=== PATIENT | male | born 1960 | race Caucasian/White ===

== ENCOUNTER 2018-03-09 19:02 | Inpatient (IN) | payer OTHER ==
[~2018-03-09] VITALS: Ht 172.7 cm; Wt 142.2 kg
[2018-03-09 22:10] VITALS: BP 164/93; PULSE 98; RESP 19; TEMP 98.1; O2SAT 95
[2018-03-09] MEDS ORDERED: PERC10TA27 PO (23:06)
[2018-03-09] MEDS ORDERED: LEVO1INJ IV (23:17)
[2018-03-09] MEDS ORDERED: IPRASOL INH (23:20)
[2018-03-09] MEDS ORDERED: CHLO25TA2 PO (23:23)
[2018-03-09] MEDS ORDERED: ENOX40IN SQ (23:24)
[2018-03-09] MEDS ORDERED: FURO1TAB62 PO (23:25)
--- NOTE | 2018-03-09 23:28 | HHI.HP ---
[facility] Dr. Weber. Non-Staff Admission Diagnosis Bilateral scattered pulmonary nodular densities of uncertain etiology . Diagnoses: (1) Pulmonary nodules/lesions, multiple Chief Complaint: SOB, hemoptysis Travel History International Travel<30 Days: No Contact w/Intl Traveler <30 Da: No History of Present Illness The patient was admitted to [facility] in [place] after a 2 week period of cough with hemoptysis after being referred by his primary care physician following an abnormal office chest x-ray. The patient presented to the emergency room on 03/01/2018. He was found to have extensive multilobular nodular scattered densities with surrounding edema on CT of chest with contrast. These were thought to represent areas of pneumonia versus metastatic deposits versus early abscesses. He had an extensive workup including Gram stain and cultures, upper respiratory bacterial and viral panel by PCR, Streptococcus pneumonia, and Legionella pneumonia urine antigen, mycoplasma pneumonia and others with no remarkable testing outcomes (per Dr. Sweet consult note dated 03/06 - I could not find the results included with records sent with patient). He had a nostril culture for MRSA that did come back positive. The patient was deemed to be high risk for bronchoscopy due to his significant morbid obesity with a BMI of 50 and he declined intubation if required. He was accepted in transfer by Dr. Nunes at [facility] for possible open lung biopsy. The patient reports two weeks of hemoptysis with sob with exertion that started two weeks before he presented to [facility] on 03/01. He denies any improvement in symptoms despite the treatments he received at [facility]. He expresses great frustration with his lack of improvement. He reports severe 7/10 chronic back pain that will only be relieved with Percocet 10/325 mg x 2 tabs (takes this at home and at [facility]). Review of Systems Except as stated in HPI: all other systems reviewed are Neg Past Family Social History Past Medical History Aortic aneurysm post repair Degenerative joint disease Incomplete right bundle branch block Benign prostatic hypertrophy Morbid obesity with BMI estimated at 50 Chronic tobacco abuse Nephrolithiasis Obstructive sleep apnea-refuses CPAP . Past Surgical History Abdominal aortic aneurysm repair [place] [address] Haney Lumbar spine surgery Tonsillectomy Septoplasty Bilateral knee surgeries Left breast mass excision . Reported Medications . Reported Meds & Active Scripts Active Reported Terazosin (Terazosin HCl) 5 Mg Cap 5 Mg PO HS Nicotine Transdermal Syst (Nicotine) 21 Mg/24 Hour Dis TD DAILY Solu-Medrol Inj (Methylprednisolone Sodium Succinate) 40 Mg/Ml Inj 40 Mg IV PUSH Q8HR Lisinopril 20 Mg Tab 20 Mg PO BID Humalog (Insulin Lispro) 100 Unit/Ml Cartridge SQ ACHS SLIDING SCALE Levemir Inj (Insulin Detemir) 1,000 unit/ 10 ML Vial 10 Units SQ HS Do not mix with any other Insulin. Vancomycin in Dextrose Inj 1 Gm/200 Ml Inj 1,000 Mg IV Q8HR Hydralazine HCl 25 Mg Tablet 25 Mg PO Q6HR PRN Heparin Lock Flush For Flush (Heparin Sodium (Porcine) Lock Flush) 500 Unit/5 Ml (100 Unit/Ml) Inj 5 Ml IV Lasix (Furosemide) 20 Mg Tab 20 Mg PO DAILY Enoxaparin Inj (Enoxaparin Sodium) 40 Mg/0.4 Ml Syr 40 Mg SQ DAILY Chlorthalidone 25 Mg Tab 25 Mg PO DAILY Duoneb (Ipratropium-Albuterol Neb) 0.5-2.5 Mg/3 Ml Neb 1 Nebule INH Q4HR PRN Levofloxacin in 5% Dextro 750 mg/150Ml (Levofloxacin in D5w) 750 Mg/150 Ml Inj IV DAILY Percocet (Oxycodone-Acetaminophen) 10-325 mg Tab 1 Tab PO Q6H PRN Allergies: Coded Allergies: adhesive (Verified Allergy, Mild, 03/10/18) blisters Family History Mother due to cancer and acute myocardial infarction 3 Father , medical history is unknown . Social History Tobacco: 2 packs per day 50 years Alcohol: Quit drinking heavily 10 years ago - drinks occasionally during socialization Illicit Drugs: denies . Physical Exam Vital Signs Vital Signs Date Time Temp Pulse Resp B/P (MAP) Pulse Ox O2 Delivery O2 Flow Rate FiO2 03/09/18 22:10 98.1 98 19 164/93 (116) 95 Physical Exam CONSTITUTIONAL: This is a morbidly obese male patient, in no apparent distress. INTEGUMENTARY: No rashes. Cool and dry. HEAD: Atraumatic. Normocephalic. EYES: No scleral icterus. No injection or drainage. ENT: Nose without bleeding, purulent drainage. NECK: Trachea midline. No JVD. CARDIOVASCULAR: Regular rate and rhythm without murmurs, gallops, or rubs. RESPIRATORY: Bilateral diffuse coarse rhonchi with a few scattered rales. SOB noted with minimal exertion. GASTROINTESTINAL: Abdomen soft, non-tender, nondistended. No guarding. MUSCULOSKELETAL: Extremities without clubbing, cyanosis, or edema. No calf tenderness. NEUROLOGICAL: Awake and alert. Motor and sensory grossly within normal limits. Normal speech. . Caprini VTE Risk Assessment Caprini VTE Risk Assessment: Mod/High Risk (score >= 2) Caprini Risk Assessment Model Point Value = 1 Point Value = 2 Point Value = 3 Point Value = 5 Age 41-60 Minor surgery BMI > 25 kg/m2 Swollen legs Varicose veins or History of unexplained or recurrent spontaneous Oral contraceptives or hormone replacement Sepsis (< 1 month) Serious lung disease, including pneumonia (< 1 month) Abnormal pulmonary function Acute myocardial infarction Congestive heart failure (< 1 month) History of inflammatory bowel disease Medical patient at bed rest Age 61-74 Arthroscopic surgery Major open surgery (> 45 min) Laparoscopic surgery (> 45 min) Malignancy Confined to bed (> 72 hours) Immobilizing plaster cast Central venous access Age >= 75 History of VTE Family history of VTE Factor V Leiden Prothrombin [id number] Lupus anticoagulant Anticardiolipin antibodies Elevated serum homocysteine Heparin-induced thrombocytopenia Other congenital or acquired thrombophilia Stroke (< 1 month) Elective arthroplasty Hip, pelvis, or leg fracture Acute spinal cord injury (< 1 month) Prophylaxis Regimen Total Risk Factor Score Risk Level Prophylaxis Regimen 0-1 Low Early ambulation 2 Moderate Order ONE of the following: *Sequential Compression Device (SCD) *Heparin 5000 units SQ BID 3-4 Higher Order ONE of the following medications: *Heparin 5000 units SQ TID *Enoxaparin/Lovenox 40 mg SQ daily (WT < 150 kg, CrCl > 30 mL/min) *Enoxaparin/Lovenox 30 mg SQ daily (WT < 150 kg, CrCl > 10-29 mL/min) *Enoxaparin/Lovenox 30 mg SQ BID (WT < 150 kg, CrCl > 30 mL/min) AND/OR *Sequential Compression Device (SCD) 5 or more Highest Order ONE of the following medications: *Heparin 5000 units SQ TID (Preferred with Epidurals) *Enoxaparin/Lovenox 40 mg SQ daily (WT < 150 kg, CrCl > 30 mL/min) *Enoxaparin/Lovenox 30 mg SQ daily (WT < 150 kg, CrCl > 10-29 mL/min) *Enoxaparin/Lovenox 30 mg SQ BID (WT < 150 kg, CrCl > 30 mL/min) AND *Sequential Compression Device (SCD) Assessment and Plan Problem List: (1) Pulmonary nodules/lesions, multiple ICD Code: R91.8 - Other nonspecific abnormal finding of lung field Assessment and Plan The patient was admitted to [facility] in [place] after a 2 week period of cough with hemoptysis after being referred by his primary care physician following an abnormal office chest x-ray. The patient presented to the emergency room on 03/01/2018. He was found to have extensive multilobular nodular scattered densities with surrounding edema on CT of chest with contrast. These were thought to represent areas of pneumonia versus metastatic deposits versus early abscesses. He had an extensive workup including Gram stain and cultures, upper respiratory bacterial and viral panel by PCR, Streptococcus pneumonia, and Legionella pneumonia urine antigen, mycoplasma pneumonia and others with no remarkable testing outcomes. He had a nostril culture for MRSA that did come back positive. The patient was deemed to be high risk for bronchoscopy due to his significant morbid obesity with a BMI of 50 and he declined intubation if required. CT guided right lung biopsy preliminarily negative per hospitalist progress note on 03/08. He was accepted in transfer by Dr. Nunes at [facility] for possible open lung biopsy. Extensive multilobular reticulonodular scattered densities with surrounding edema on CT of chest with contrast at [facility]. These were thought to represent areas of pneumonia versus metastatic deposits (preliminary right lung biopsy negative for malignancy) versus early abscesses - consult CTS for possible open lung biopsy - appreciate assistance - Consult pulmonology - appreciate assistance - continue antibiotics for pneumonia: IV vancomycin and levaquin - continue duonebs q4h prn sob/wheezing COPD exacerbation - supplemental oxygen as needed - duonebs - continue IV solumedrol Hypertension - Continue hydralazine as needed and routine lisinopril - monitor trends in bp and adjust treatments as indicated Benign prostatic hypertrophy - Continue terra Zosyn Chronic back pain - Continue as needed Percocet 10/325 mg 2 tabs every 6 hours as needed Steroid-induced hyperglycemia - Continue Levemir - Accu-Cheks before meals and at bedtime with low-dose NovoLog sliding scale coverage - Hypoglycemia protocol - Monitor trends and blood glucose readings and adjust treatments as indicated Peripheral edema -Continue Lasix and chlorthalidone as previously ordered -Monitor I&O Tobacco abuse -Counseled regarding cessation -Nicotine patch Morbid obesity - will need to work on weight loss DVT prophylaxis -Lovenox 40 mg IV subcu every 24 hours Discussed Condition With Dr. Stubbs and RN . Physician Certification 2 Midnight Certification Type: Admission for Inpatient Services Order for Inpatient Services The services are ordered in accordance with Medicare regulations or non- Medicare payer requirements, as applicable. In the case of services not specified as inpatient-only, they are appropriately provided as inpatient services in accordance with the 2-midnight benchmark. Estimated LOS (days): 3 days is the estimated time the patient will need to remain in the hospital, assuming treatment plan goals are met and no additional complications. Post-Hospital Plan: Other acute care hospital Grace Keen March 09, 2018 23:28
[2018-03-09] MEDS ORDERED: SENNOSIDES 8.6 MG TAB PO PRN (23:30)
[2018-03-09] MEDS ORDERED: ACETAMINOPHEN 325 MG TAB PO PRN (23:30)
[2018-03-09] MEDS ORDERED: ONDANSETRON HCL 4 MG/2 ML VIAL IVP PRN (23:30)
[2018-03-09] MEDS ORDERED: BISACODYL 10 MG SUPP RECTAL PRN (23:30)
[2018-03-09] MEDS ORDERED: MAGNESIUM HYDROXIDE SUSP 30 ML CUP PO PRN (23:30)
[2018-03-09] MEDS ORDERED: SODIUM CHLORIDE 0.9% FLUSH 10 ML FLUSH IV FLUSH PRN (23:30)
[2018-03-09] MEDS ORDERED: HYDR-3799 PO (23:59)
[2018-03-09] MEDS ORDERED: HEPA100I8 IV (23:59)
[2018-03-10] VITALS (7 sets, daily range): BP systolic 109–171; BP diastolic 57–96; PULSE 79–99; RESP 16–20; TEMP 97.2–98.1; O2SAT 91–96
[2018-03-10] MEDS ORDERED: VANC1INJ2 IV (00:01)
[2018-03-10] MEDS ORDERED: LEVEMIR SQ (00:02)
[2018-03-10] MEDS ORDERED: INSU100C SQ (00:05)
[2018-03-10] MEDS ORDERED: LISI-515 PO (00:06)
[2018-03-10] MEDS ORDERED: SOLU40IN IV PUSH (00:07)
[2018-03-10] MEDS ORDERED: NICO1DIS2 TD (00:09)
[2018-03-10] MEDS ORDERED: TERA5CAP3 PO (00:12)
[2018-03-10] MEDS ORDERED: hydrALAZINE HCL 25 MG TAB PO PRN (00:30)
[2018-03-10] MEDS ORDERED: VANCOMYCIN HCL 1000 MG VIAL IV SCH (00:30)
[2018-03-10] MEDS ORDERED: oxyCODONE/ACETAMINOPHEN 10 MG/325 MG TAB PO PRN (00:30)
[2018-03-10] MEDS ORDERED: Vancomycin Consult Pharmacy 1 EA OTHER SCH (00:30)
[2018-03-10] MEDS ORDERED: DEXTROSE 50% IN WATER 50 ML VIAL(D50) IV PUSH PRN (00:45)
[2018-03-10] MEDS ORDERED: SODIUM CHLORIDE 0.9% FLUSH 10 ML FLUSH IVF PRN ×2 (00:45)
[2018-03-10] MEDS ORDERED: PILL SPLITTER OTHER PRN (00:45)
[2018-03-10] MEDS ORDERED: GLUCAGON 1 MG/ML VIAL OTHER PRN (00:45)
[2018-03-10] MEDS ORDERED: RESP: ALBUTEROL 2.5 MG/IPRATROPIUM 0.5 MG NEB (PRN) NEB (00:45)
[2018-03-10] MEDS: TERAZOSIN HCL 5 MG CAP PO SCH ×2 (00:59→20:22)
[2018-03-10] MEDS: LISINOPRIL 20 MG TAB PO SCH ×3 (01:02→20:22)
[2018-03-10] MEDS: methylPREDNISolone SOD SUCC 40 MG/1 ML VIAL IV PUSH SCH ×3 (01:02→20:23)
[2018-03-10] MEDS ORDERED: PERC10TA27 PO (01:14)
[2018-03-10] MEDS: INSULIN DETEMIR 100 UNITS/ML VIAL SQ SCH ×2 (01:32→20:28)
[2018-03-10 01:36] LABS: WHITE BLOOD COUNT 24.8 TH/MM3 (4.0-11.0)
[2018-03-10 01:37] LABS: AUTOMATED NEUTROPHIL # 20.3 TH/MM3 (1.8-7.7); BASOPHIL # 0.1 TH/MM3 (0-0.2); BASOPHIL % 0.4 % (0.0-2.0); HEMATOCRIT 41.4 % (39.0-51.0); HEMOGLOBIN 13.6 GM/DL (13.0-17.0); LYMPH % 9.9 % (9.0-44.0); LYMPHOCYTE # 2.5 TH/MM3 (1.0-4.8); MEAN CELL VOLUME 88.1 FL (80.0-100.0); MEAN CORPUSCULAR HGB CONC 32.9 % (32.0-36.0); MEAN PLATELET VOLUME 7.9 FL (7.0-11.0); MONO % 7.6 % (0.0-8.0); MONOCYTE # 1.9 TH/MM3 (0-0.9); NEUT % 82.1 % (16.0-70.0); PLATELET COUNT 293 TH/MM3 (150-450); RED CELL DISTRIBUTION WIDTH 15.9 % (11.6-17.2)
[2018-03-10 01:49] LABS: ALKALINE PHOSPHATASE 114 U/L (45-117); ALT (GPT) 132 U/L (12-78); TOTAL BILIRUBIN ADULT 0.5 MG/DL (0.2-1.0); TOTAL PROTEIN 7.3 GM/DL (6.4-8.2)
[2018-03-10 01:50] LABS: ALBUMIN 3.3 GM/DL (3.4-5.0); AST (GOT) 59 U/L (15-37); BICARBONATE 37.1 MEQ/L (21.0-32.0); BLOOD UREA NITROGEN 33 MG/DL (7-18); CALCIUM 9.1 MG/DL (8.5-10.1); CHLORIDE 93 MEQ/L (98-107); CREATININE 1.05 MG/DL (0.60-1.30); GLOMERULAR FILTRATION RATE 72 ML/MIN (>89); GLUCOSE,RANDOM 133 MG/DL (74-106); SODIUM (NA) 136 MEQ/L (136-145)
[2018-03-10 02:06] LABS: STOMATOCYTES 1+ (NORMAL)
[2018-03-10] MEDS ORDERED: VANCOMYCIN 1,500 MG/NS 500 ML IV ONE ×2 (03:00)
[2018-03-10] MEDS: oxyCODONE/ACETAMINOPHEN 10 MG/325 MG TAB PO PRN ×3 (07:07→20:22)
[2018-03-10] MEDS: SODIUM CHLORIDE 0.9% FLUSH 10 ML FLUSH IV FLUSH SCH ×3 (09:00→20:23)
[2018-03-10] MEDS ORDERED: NON-FORMULARY DRUG (Chlorthalidone 25 MG) PO SCH (09:00)
[2018-03-10] MEDS: CHLORTHALIDONE 50 MG TAB PO SCH (09:30)
[2018-03-10] MEDS: FUROSEMIDE 20 MG TAB PO SCH (09:30)
[2018-03-10] MEDS: NICOTINE 21 MG/24 HR PATCH T-DERMAL SCH (09:30)
[2018-03-10] MEDS: SODIUM CHLORIDE 0.9% FLUSH 10 ML FLUSH IVF SCH (09:31)
[2018-03-10] MEDS: ENOXAPARIN SODIUM 40 MG/0.4 ML SYRINGE SQ SCH (09:31)
[2018-03-10] MEDS: LEVOFLOXACIN 750 MG PREMIX INJ 150 ML IV SCH (09:32)
[2018-03-10] MEDS: INSULIN ASPART SUPPLEMENTAL SCALE SQ SCH ×4 (09:47→20:28)
[2018-03-10] MEDS ORDERED: VANCOMYCIN 1,000 MG/NS 250 ML IV ONE ×2 (10:00)
[2018-03-10 13:56] LABS: PROTHROMBIN TIME - PATIENT 9.8 SEC (9.8-11.6)
--- NOTE | 2018-03-10 13:58 | RADRPT ---
EXAM DATE/TIME: 03/10/2018 13:00 [place] COMPARISON: No previous studies available for comparison. INDICATIONS : Evaluate for infiltrate. MEDICAL HISTORY : None. SURGICAL HISTORY : Picc line. ENCOUNTER: Initial ACUITY: 1 day PAIN SCORE: 0/10 LOCATION: Bilateral chest FINDINGS: PICC line in good position. Minimal bibasilar parenchymal changes, nonspecific. No pneumothorax. Th e heart and pulmonary vascularity are normal. CONCLUSION: Minimal bibasilar parenchymal changes. No pneumothorax.. Jorge Julio MD FACR on March 10, 2018 at 13:56 Board Certified Radiologist. This report was verified electronically.
[2018-03-10] MEDS ORDERED: CEFAZOLIN INJ 3,000 MG in SODIUM CHLORIDE 0.9% INJ 100 ML IV SCH (14:30)
[2018-03-10] MEDS ORDERED: CHLORHEXIDINE GLUCONATE 4% SOLN 120 ML BTL TOPICAL SCH (14:30)
[2018-03-10] MEDS ORDERED: CEFAZOLIN INJ 500 MG in SODIUM CHLORIDE 0.9% IRR BTL 500 ML IRRIGATION SCH (14:30)
[2018-03-10] MEDS ORDERED: SODIUM CHLORIDE 0.9% FLUSH 10 ML FLUSH IV FLUSH PRN (14:30)
--- NOTE | 2018-03-10 15:21 | MB ---
cc: Mirta Jimenez Jacqueline R ARNP DATE: 03/10/2018 DATE OF : 1960 HISTORY OF PRESENT ILLNESS: A 57-year-old male patient of Dr. John Weber, presented to [facility] on 03/01/2018 with hemoptysis for about [address] chest showed extensive multilobar nodularity with scattered densities, surrounding edema. The patient had extensive workup including a right lung biopsy for which the path report is not available. There was a note per Dr. Sweet that the patient had extensive workup also including Gram's stain, cultures, viral panel, Streptococcus pneumonia, Legionella urine antigen, mycoplasma, pneumonia, had no remarkable testing outcomes. The MRSA nasal swab did come back positive. He was deemed high risk for bronchoscopy due to his significant morbid obesity with a BMI of 50 and at that time declined intubation if required. He was accepted by Dr. Blair at [facility] for possible open lung biopsy. He apparently had not had any improvement in his symptoms since the treatment he received a [facility], extremely frustrated with the lack of improvement. PAST MEDICAL HISTORY: 1. Aortic aneurysm repair, which was done endoscopically. 2. Obstructive sleep apnea. The patient declined CPAP use. 3. Kidney stones. 4. Tobacco dependency 5. Morbid obesity. BMI here is 48.8, 6. Benign prostatic hypertrophy. 7. History of incomplete right bundle branch block. 8. Chronic knee pain, prior meniscus tear. 9. History of degenerative joint disease. PAST SURGICAL HISTORY: Endoscopic repair of abdominal aortic aneurysm in 2016, lumbar spine surgery, tonsillectomy, septoplasty, surgery for torn medial meniscus. He had a left breast mass excision, details unknown. ALLERGIES: ADHESIVE TAPE. MEDICATIONS: On transfer from [facility] include: 1. Levaquin. 2. Vancomycin. 3. DuoNebs. 4. Nicotine patch. 5. Lovenox. 6. Hydralazine p.r.n. 7. Terazosin. 8. Lisinopril. 9. Percocet for pain. 10. Lasix. 11. Chlorthalidone. 12. Solu-Medrol 13. Levemir. FAMILY HISTORY: Mother due to cancer, acute GA. Father , medical history unknown. SOCIAL HISTORY: The patient smokes 2 packs a day for over 50 years. Occasional alcohol, quit drinking heavily 10 years ago. with children. REVIEW OF SYSTEMS: As above in HPI, other 12 systems unremarkable. PHYSICAL EXAMINATION: VITAL SIGNS: This is a very obese male, BMI of 48.8. Blood pressure 110/60, heart rate of 96, afebrile. GENERAL: Awake, alert, in no acute distress. HEENT: Head is normocephalic, atraumatic. Pupils equal and reactive. Oral mucosa pink, moist. NECK: Supple. No JVD. HEART: Sounds S1, S2. Regular rate and rhythm. No audible rubs, murmurs, gallops. LUNGS: He has got some slight inspiratory, expiratory wheeze. No audible rhonchi noted. ABDOMEN: Obese, soft, nontender. No masses or organomegaly. EXTREMITIES: Trace edema noted. Good distal pulses. NEUROLOGIC: A and O x3. No focal deficits. LABORATORY DATA: Hemoglobin 13, hematocrit of 41. White cell count of 24, platelet count of 293. Sodium 136, potassium 4.7, BUN of 33, creatinine 1.05, AST 59, ALT 132. INR 1.0. Chest x-ray: Minimal bibasilar parenchymal changes. No pneumothorax. A CT chest was loaded into the [facility] [employer] [facility]. However, the report showed numerous scattered densities in both lungs, more marked on the right than the left. He also had a 2-D echocardiogram which showed an EF of 55%, mild tricuspid insufficiency, poor echo windows due to his large habitus. ASSESSMENT AND PLAN: This is a 57-year-old male that has had an extensive workup, nonconclusive, negative cultures to date per [facility], now requesting a lung biopsy. The patient will be scheduled for a video-assisted thoracoscopy with lower lobe lung biopsy on Tuesday. The patient will be n.p.o. after midnight, will hold his Lovenox the day of. He can receive his Tuesday dose. Type and screen. Chest x-ray is available. The films have been loaded into the [employer]. JACOB Collins MD JRT/MEENA , 02:31 PM , 03:19 PM
[2018-03-10] MEDS: RESP: ALBUTEROL 2.5 MG/IPRATROPIUM 0.5 MG NEB (SCH) NEB ×2 (15:24→19:05)
[2018-03-10 15:51] LABS: BILIRUBIN, URINE NEG (NEG); BLOOD, URINE SMALL (NEG); GLUCOSE,URINE NEG (NEG); KETONE, URINE NEG (NEG); NITRITE,URINE NEG (NEG); URINE COLOR YELLOW (YELLW/STRAW); URINE LEUKOCYTE ESTERASE NEG (NEG)
[2018-03-10 15:56] LABS: HYALINE CAST, URINE 6 /lpf (RARE); SQUAMOUS EPITHELIAL CELL URINE <1 /hpf (0-5)
--- NOTE | 2018-03-10 20:21 | HHI.PR ---
Subjective Remarks Patient sitting on the edge of the bed, nurse obtaining blood, no chest pain or short of breath, afebrile Objective Vitals Vital Signs Date Time Temp Pulse Resp B/P (MAP) Pulse Ox O2 Delivery O2 Flow Rate FiO2 03/10/18 16:00 97.4 86 18 128/84 (99) 96 03/10/18 15:24 92 Nasal Cannula 2.00 03/10/18 15:22 Nasal Cannula 2.00 03/10/18 13:30 Nasal Cannula 2.00 03/10/18 12:30 98.0 96 17 109/57 (74) 92 03/10/18 08:00 Room Air 03/10/18 08:00 97.2 79 17 155/90 (111) 94 03/10/18 00:00 98.1 99 20 171/96 (121) 94 03/09/18 22:10 98.1 98 19 164/93 (116) 95 I/O 03/09/18 03/09/18 03/09/18 03/10/18 03/10/18 03/10/18 07:00 15:00 23:00 07:00 15:00 23:00 Intake Total 400 ml Balance 400 ml Intake IV Total 400 ml Result Diagram: 03/10/18 0100 03/10/18 0100 Objective Remarks GENERAL: This is a well-nourished, morbidly obese, well-developed patient, in no apparent distress. CARDIOVASCULAR: RRR, no gallops, or rubs. RESPIRATORY: Mild diminished breath sounds bibasilar. No W, R, or R GASTROINTESTINAL: Abdomen soft, non-tender, nondistended. Positive bowel sounds MUSCULOSKELETAL: Extremities without clubbing, cyanosis, or edema. Pedal pulses appreciated NEUROLOGICAL: Awake and alert. Moves all extremity. Normal speech.no focal neurological deficit A/P Problem List: (1) Pulmonary nodules/lesions, multiple ICD Code: R91.8 - Other nonspecific abnormal finding of lung field Assessment and Plan The patient was admitted to [facility] in [place] after a 2 week period of cough with hemoptysis after being referred by his primary care physician following an abnormal office chest x-ray. The patient presented to the emergency room on 03/01/2018. He was found to have extensive multilobular nodular scattered densities with surrounding edema on CT of chest with contrast. These were thought to represent areas of pneumonia versus metastatic deposits versus early abscesses. He had an extensive workup including Gram stain and cultures, upper respiratory bacterial and viral panel by PCR, Streptococcus pneumonia, and Legionella pneumonia urine antigen, mycoplasma pneumonia and others with no remarkable testing outcomes. He had a nostril culture for MRSA that did come back positive. The patient was deemed to be high risk for bronchoscopy due to his significant morbid obesity with a BMI of 50 and he declined intubation if required. CT guided right lung biopsy preliminarily negative per hospitalist progress note on 03/08. He was accepted in transfer by Dr. Nunes at [facility] for possible open lung biopsy. 03/10: WBC 24K, appreciate pulmonary and hematology, CTS consultation, plan for lung biopsy, Repeat CBC BMP in a.m., monitor vital A/P: Extensive multilobular reticulonodular scattered densities with surrounding edema on CT of chest with contrast at [facility]. These were thought to represent areas of pneumonia versus metastatic deposits (preliminary right lung biopsy negative for malignancy) versus early abscesses - consult CTS for possible open lung biopsy - appreciate assistance - Consult pulmonology - appreciate assistance - continue antibiotics for pneumonia: IV vancomycin and levaquin - continue duonebs q4h prn sob/wheezing COPD exacerbation - supplemental oxygen as needed - duonebs - continue IV solumedrol Hypertension - Continue hydralazine as needed and routine lisinopril - monitor trends in bp and adjust treatments as indicated Benign prostatic hypertrophy - Continue terra Zosyn Chronic back pain - Continue as needed Percocet 10/325 mg 2 tabs every 6 hours as needed Steroid-induced hyperglycemia - Continue Levemir - Accu-Cheks before meals and at bedtime with low-dose NovoLog sliding scale coverage - Hypoglycemia protocol - Monitor trends and blood glucose readings and adjust treatments as indicated Peripheral edema -Continue Lasix and chlorthalidone as previously ordered -Monitor I&O Tobacco abuse -Counseled regarding cessation -Nicotine patch Morbid obesity - will need to work on weight loss DVT prophylaxis -Lovenox 40 mg IV subcu every 24 hours Janneth Porter MD March 10, 2018 20:21
[2018-03-11] MEDS: oxyCODONE/ACETAMINOPHEN 10 MG/325 MG TAB PO PRN ×4 (02:30→21:20)
[2018-03-11 04:05] VITALS: BP 118/75; PULSE 92; RESP 18; TEMP 97.3; O2SAT 91
[2018-03-11] MEDS: RESP: ALBUTEROL 2.5 MG/IPRATROPIUM 0.5 MG NEB (SCH) NEB ×4 (07:20→20:00)
[2018-03-11 08:00] VITALS: BP 159/60; PULSE 96; RESP 18; TEMP 97.4; O2SAT 96
[2018-03-11] MEDS: INSULIN ASPART SUPPLEMENTAL SCALE SQ SCH ×4 (08:00→21:23)
[2018-03-11] MEDS: LEVOFLOXACIN 750 MG PREMIX INJ 150 ML IV SCH (08:58)
[2018-03-11] MEDS: CHLORTHALIDONE 50 MG TAB PO SCH (08:58)
[2018-03-11] MEDS: LISINOPRIL 20 MG TAB PO SCH ×2 (08:59→21:20)
[2018-03-11] MEDS: FUROSEMIDE 20 MG TAB PO SCH (08:59)
[2018-03-11] MEDS: NICOTINE 21 MG/24 HR PATCH T-DERMAL SCH (09:00)
[2018-03-11] MEDS: methylPREDNISolone SOD SUCC 40 MG/1 ML VIAL IV PUSH SCH ×2 (09:00→21:21)
[2018-03-11] MEDS: REMOVE OLD PATCH T-DERMAL SCH (09:00)
[2018-03-11] MEDS: ENOXAPARIN SODIUM 40 MG/0.4 ML SYRINGE SQ SCH (09:00)
[2018-03-11] MEDS: SODIUM CHLORIDE 0.9% FLUSH 10 ML FLUSH IVF SCH (09:13)
[2018-03-11] MEDS: SODIUM CHLORIDE 0.9% FLUSH 10 ML FLUSH IV FLUSH SCH ×4 (09:13→21:22)
[2018-03-11] MEDS: VANCOMYCIN INJ 2,500 MG in SODIUM CHLORID 0.9% 500 ML INJ 500 ML IV SCH (10:00)
[2018-03-11 12:00] VITALS: BP 133/78; PULSE 93; RESP 18; TEMP 97.8; O2SAT 97
--- NOTE | 2018-03-11 14:21 | MB ---
cc: Brittany Richardson MD DATE: 03/10/2018 REASON FOR CONSULTATION: Bilateral lung infiltrates and nodules. HISTORY OF PRESENT ILLNESS: This is a 57-year-old white male who has been admitted with a history of hemoptysis and a history of extensive nodular pulmonary infiltrates. The patient initially was admitted at [facility] for hemoptysis and had an extensive workup done there and had sputum studies, nasal swabs and also apparently a needle aspiration of one of the nodules which was supposedly nondiagnostic according to the patient. The patient, however, was found to have MRSA on the nasal swab and has been treated with antibiotics over the past 2 weeks. Bronchoscopy was deemed to be quite risky and he thus was advised to have open lung biopsy and he is now at [facility] for thoracic surgical evaluation for open lung biopsy. Meanwhile, the patient has been weaned off oxygen and he is still having a cough with minimal hemoptysis and mild wheezing, but denies any chest pains and he is only short of breath with exertion. He has not lost any weight and has been extremely overweight and has sleep apnea, but has not been given a CPAP mask as yet. PAST MEDICAL HISTORY: The patient's past history includes a history of extreme obesity and a history of arthritis of the knees, history of degenerative joint disease, kidney stones, sleep apnea, and a history for aortic aneurysm repair. The past history also includes a history of hypertension and diabetes. PAST SURGICAL HISTORY: Also includes lumbar spine surgery, septoplasty, tonsillectomy, meniscus repair and a history for left breast mass excision. HABITS: The patient smoked 2 packs per day for over 45 years. Alcohol use occasional. MEDICATIONS: Medication list included: 1. Vancomycin. 2. Levaquin 3. Lovenox. 4. Hydralazine. 4. Lisinopril. 5. Chlorthalidone. 6. Solu-Medrol. 7. Levemir insulin. FAMILY HISTORY: Significant for cancer in his mother. Father of unknown causes. REVIEW OF SYSTEMS: The patient is overweight. He has cough, wheezing, hemoptysis, shortness of breath. He has epigastric distress and cramping. There is no leg edema. He does have some joint pains. Denies any headaches or blackouts and the other system review is negative. ALLERGIES: TAPE. PHYSICAL EXAMINATION: GENERAL: This is a very obese, middle-aged man who is alert. Face is plethora. There is no peripheral edema. No lymphadenopathy. SKIN: Turgor was good. VITAL SIGNS: Blood pressure 145/80, pulse is 75, respirations 16, temperature 97.5. HEENT: Head is normocephalic. Pupils are reactive and equal. Throat was clear. Nasal mucosa edematous. NECK: Supple, no bruits. No lymphadenopathy or thyromegaly. CHEST: Decreased excursions with occasional wheezes throughout both lung ascencio. Scattered crackles over the right lung base. HEART: The heart sounds are regular S1 and S2. No murmur. No S3. ABDOMEN: Obese and protuberant without masses. No organomegaly or tenderness. Bowel sounds are active. EXTREMITIES: Decreased peripheral pulses. Reflexes are 1+ with no gross motor deficits. No edema. NEUROLOGIC: The patient is alert, oriented, and cooperative. SKIN: No lesions. IMPRESSION: 1. Bilateral nodular pulmonary infiltrates, etiology undetermined. 2. Probable underlying chronic obstructive pulmonary disease and interstitial lung disease. 3. History of kidney stones. 4. Obstructive sleep apnea syndrome. 5. Hypertension. PLAN: The patient has been evaluated by thoracic surgery and apparently will be scheduled for a video-assisted thoracoscopy and lung biopsy on Tuesday. We will also get a blood gas study, chest x-ray and pulmonary function study at the bedside. Oxygen supplementation at 2 liters nasal cannula p.r.n. Nebulized DuoNeb solution q.i.d. Continue with antibiotic coverage as ordered including Levaquin and IV vancomycin and Solu-Medrol tapered down to 40 mg IV q. 8 hours. Thank you, Dr. Stubbs for this consultation. Brittany Richardson MD VJD/KENYATTA , 01:44 PM , 02:19 PM
[2018-03-11 16:00] VITALS: BP 121/65; PULSE 91; RESP 18; TEMP 97.8; O2SAT 97
[2018-03-11 16:06] LABS: BICARBONATE 32.5 MEQ/L (21.0-32.0); CALCIUM 8.8 MG/DL (8.5-10.1); CREATININE 1.43 MG/DL (0.60-1.30); MAGNESIUM 2.4 MG/DL (1.5-2.5); PHOSPHORUS 3.7 MG/DL (2.5-4.9)
[2018-03-11 20:00] VITALS: BP 118/64; PULSE 105; RESP 20; TEMP 97; O2SAT 94
[2018-03-11 20:18] VITALS: O2SAT 93
--- NOTE | 2018-03-11 20:28 | HHI.PR ---
Subjective Remarks Resting comfortably in bed No event overnight Denied chest and or short of breath No fever or chills Reported cramps in his hands Objective Vitals Vital Signs Date Time Temp Pulse Resp B/P (MAP) Pulse Ox O2 Delivery O2 Flow Rate FiO2 03/11/18 20:18 93 Nasal Cannula 2.00 03/11/18 16:00 97.8 91 18 121/65 (83) 97 03/11/18 16:00 Room Air 03/11/18 12:00 97.8 93 18 133/78 (96) 97 03/11/18 12:00 Room Air 03/11/18 08:00 97.4 96 18 159/60 (93) 96 03/11/18 08:00 Room Air 03/11/18 07:21 Nasal Cannula 2.00 03/11/18 04:05 97.3 92 18 118/75 (89) 91 03/11/18 03:30 18 03/10/18 23:34 97.9 85 16 120/58 (78) 92 03/10/18 20:45 Room Air I/O 03/10/18 03/10/18 03/10/18 03/11/18 03/11/18 03/11/18 07:00 15:00 23:00 07:00 15:00 23:00 Intake Total 400 ml 960 ml 1680 ml Balance 400 ml 960 ml 1680 ml Intake Oral 960 ml 1680 ml IV Total 400 ml # Voids 6 6 # Bowel Movements 0 1 Result Diagram: 03/10/18 0100 03/11/18 1452 Objective Remarks GENERAL: This is a well-nourished, morbidly obese well-developed patient, in no apparent distress. CARDIOVASCULAR: RRR, no gallops, or rubs. RESPIRATORY: Diminished breath sounds bibasilar. No W, R, or R GASTROINTESTINAL: Abdomen soft, non-tender, nondistended. Positive bowel sounds MUSCULOSKELETAL: Extremities without clubbing, cyanosis, or edema. Pedal pulses appreciated NEUROLOGICAL: Awake and alert. Moves all extremity. Normal speech.no focal neurological deficit A/P Problem List: (1) Pulmonary nodules/lesions, multiple ICD Code: R91.8 - Other nonspecific abnormal finding of lung field Assessment and Plan The patient was admitted to [facility] in [place] after a 2 week period of cough with hemoptysis after being referred by his primary care physician following an abnormal office chest x-ray. The patient presented to the emergency room on 03/01/2018. He was found to have extensive multilobular nodular scattered densities with surrounding edema on CT of chest with contrast. These were thought to represent areas of pneumonia versus metastatic deposits versus early abscesses. He had an extensive workup including Gram stain and cultures, upper respiratory bacterial and viral panel by PCR, Streptococcus pneumonia, and Legionella pneumonia urine antigen, mycoplasma pneumonia and others with no remarkable testing outcomes. He had a nostril culture for MRSA that did come back positive. The patient was deemed to be high risk for bronchoscopy due to his significant morbid obesity with a BMI of 50 and he declined intubation if required. CT guided right lung biopsy preliminarily negative per hospitalist progress note on 03/08. He was accepted in transfer by Dr. Nunes at [facility] for possible open lung biopsy. 03/10: WBC 24K, appreciate pulmonary and hematology, CTS consultation, plan for lung biopsy, Repeat CBC BMP in a.m., monitor vital 03/11: Appreciate pulmonology and CVS consult plan for VATS, complained of cramping in his hands and arms, will check BMP A/P: Extensive multilobular reticulonodular scattered densities with surrounding edema on CT of chest with contrast at [facility]. These were thought to represent areas of pneumonia versus metastatic deposits (preliminary right lung biopsy negative for malignancy) versus early abscesses - consult CTS for possible open lung biopsy - appreciate assistance - Consult pulmonology - appreciate assistance - continue antibiotics for pneumonia: IV vancomycin and levaquin - continue duonebs q4h prn sob/wheezing COPD exacerbation - supplemental oxygen as needed - duonebs - continue IV solumedrol Hypertension - Continue hydralazine as needed and routine lisinopril - monitor trends in bp and adjust treatments as indicated Benign prostatic hypertrophy - Continue terra Zosyn Chronic back pain - Continue as needed Percocet 10/325 mg 2 tabs every 6 hours as needed Steroid-induced hyperglycemia - Continue Levemir - Accu-Cheks before meals and at bedtime with low-dose NovoLog sliding scale coverage - Hypoglycemia protocol - Monitor trends and blood glucose readings and adjust treatments as indicated Peripheral edema -Continue Lasix and chlorthalidone as previously ordered -Monitor I&O Tobacco abuse -Counseled regarding cessation -Nicotine patch Morbid obesity - will need to work on weight loss DVT prophylaxis -Lovenox 40 mg IV subcu every 24 hours Janneth Porter MD March 11, 2018 20:28
[2018-03-11] MEDS: TERAZOSIN HCL 5 MG CAP PO SCH (21:18)
[2018-03-11] MEDS: INSULIN DETEMIR 100 UNITS/ML VIAL SQ SCH (21:23)
[2018-03-12] VITALS (8 sets, daily range): BP systolic 109–149; BP diastolic 55–81; PULSE 75–122; RESP 20–22; TEMP 97.3–98.8; O2SAT 93–97
[2018-03-12] MEDS: oxyCODONE/ACETAMINOPHEN 10 MG/325 MG TAB PO PRN ×4 (03:44→21:25)
[2018-03-12] MEDS: RESP: ALBUTEROL 2.5 MG/IPRATROPIUM 0.5 MG NEB (SCH) NEB ×4 (07:40→20:59)
[2018-03-12] MEDS: INSULIN ASPART SUPPLEMENTAL SCALE SQ SCH ×4 (08:00→21:25)
[2018-03-12 08:36] LABS: AUTOMATED NEUTROPHIL # 17.8 TH/MM3 (1.8-7.7); BASOPHIL % 0.1 % (0.0-2.0); HEMATOCRIT 37.3 % (39.0-51.0); HEMOGLOBIN 12.1 GM/DL (13.0-17.0); LYMPH % 9.8 % (9.0-44.0); LYMPHOCYTE # 2.1 TH/MM3 (1.0-4.8); MEAN CELL VOLUME 88.9 FL (80.0-100.0); MEAN CORPUSCULAR HGB CONC 32.6 % (32.0-36.0); MONOCYTE # 1.5 TH/MM3 (0-0.9); NEUT % 83.1 % (16.0-70.0); PLATELET COUNT 246 TH/MM3 (150-450); RED BLOOD COUNT 4.19 MIL/MM3 (4.50-5.90); RED CELL DISTRIBUTION WIDTH 16.8 % (11.6-17.2); WHITE BLOOD COUNT 21.5 TH/MM3 (4.0-11.0)
[2018-03-12 08:43] LABS: PROTHROMBIN TIME - PATIENT 9.8 SEC (9.8-11.6)
[2018-03-12] MEDS: FUROSEMIDE 20 MG TAB PO SCH (08:56)
[2018-03-12] MEDS: methylPREDNISolone SOD SUCC 40 MG/1 ML VIAL IV PUSH SCH ×2 (08:57→21:29)
[2018-03-12] MEDS: LISINOPRIL 20 MG TAB PO SCH ×2 (08:57→21:33)
[2018-03-12] MEDS: SODIUM CHLORIDE 0.9% FLUSH 10 ML FLUSH IV FLUSH SCH ×4 (08:57→21:29)
[2018-03-12] MEDS: SODIUM CHLORIDE 0.9% FLUSH 10 ML FLUSH IVF SCH (08:58)
[2018-03-12] MEDS: NICOTINE 21 MG/24 HR PATCH T-DERMAL SCH (08:59)
[2018-03-12] MEDS: ENOXAPARIN SODIUM 40 MG/0.4 ML SYRINGE SQ SCH (08:59)
[2018-03-12] MEDS: REMOVE OLD PATCH T-DERMAL SCH (08:59)
[2018-03-12] MEDS: CHLORTHALIDONE 50 MG TAB PO SCH (09:01)
[2018-03-12] MEDS: LEVOFLOXACIN 750 MG PREMIX INJ 150 ML IV SCH (09:06)
[2018-03-12 09:26] LABS: ALBUMIN 3.1 GM/DL (3.4-5.0); AST (GOT) 22 U/L (15-37); BLOOD UREA NITROGEN 42 MG/DL (7-18); CALCIUM 9.2 MG/DL (8.5-10.1); CHLORIDE 96 MEQ/L (98-107); CREATININE 1.11 MG/DL (0.60-1.30); GLOMERULAR FILTRATION RATE 68 ML/MIN (>89); GLUCOSE,RANDOM 123 MG/DL (74-106); SODIUM (NA) 138 MEQ/L (136-145)
[2018-03-12 09:28] LABS: ALKALINE PHOSPHATASE 87 U/L (45-117); ALT (GPT) 75 U/L (12-78); TOTAL BILIRUBIN ADULT 0.4 MG/DL (0.2-1.0); TOTAL PROTEIN 6.6 GM/DL (6.4-8.2)
[2018-03-12] MEDS: VANCOMYCIN INJ 2,500 MG in SODIUM CHLORID 0.9% 500 ML INJ 500 ML IV SCH (10:00)
--- NOTE | 2018-03-12 15:36 | HHI.PR ---
Subjective Remarks Awaiting Vats Lung biopsy and bronchoscopy in am. Mild hemoptysis. Off O2 . No chest pains Objective Vital Signs Date Time Temp Pulse Resp B/P (MAP) Pulse Ox O2 Delivery O2 Flow Rate FiO2 03/12/18 12:00 98.8 97 22 149/71 (97) 97 03/12/18 10:01 20 03/12/18 08:00 97.6 75 22 134/72 (92) 94 03/12/18 07:40 95 21 03/12/18 04:00 98.0 105 20 129/58 (81) 94 03/12/18 00:00 97.5 103 20 119/70 (86) 93 03/12/18 00:00 Nasal Cannula 2.00 03/11/18 20:18 93 Nasal Cannula 2.00 03/11/18 20:00 97.0 105 20 118/64 (82) 94 03/11/18 20:00 Nasal Cannula 2.00 03/11/18 16:00 97.8 91 18 121/65 (83) 97 03/11/18 16:00 Room Air I/O 03/11/18 03/11/18 03/11/18 03/12/18 03/12/18 03/12/18 07:00 15:00 23:00 07:00 15:00 23:00 Intake Total 960 ml 1680 ml 400 ml Balance 960 ml 1680 ml 400 ml Intake Oral 960 ml 1680 ml 400 ml # Voids 6 6 3 # Bowel Movements 0 1 1 Result Diagram: 03/12/18 0756 03/12/18 0756 Objective Remarks GENERAL: This is a very obese, middle-aged man who is alert. Face is Flushed There is no peripheral edema. No lymphadenopathy. SKIN: Turgor was good. HEENT: Head is normocephalic. Pupils are reactive and equal. Throat was clear. Nasal mucosa edematous. NECK: Supple, no bruits. No lymphadenopathy or thyromegaly. CHEST: Decreased excursions with occasional wheezes throughout both lung ascencio. Scattered crackles over the lung bases. HEART: The heart sounds are regular S1 and S2. No murmur. No S3. ABDOMEN: Obese and protuberant without masses. No organomegaly or tenderness. Bowel sounds are active. EXTREMITIES: Decreased peripheral pulses. Reflexes are 1+ with no gross motor deficits. No edema. NEUROLOGIC: The patient is alert, oriented, and cooperative. SKIN: No lesions. Assessment and Plan Assessment and Plan IMPRESSION: 1. Bilateral nodular pulmonary infiltrates, etiology undetermined. 2. Probable underlying chronic obstructive pulmonary disease and interstitial lung disease. 3. History of kidney stones. 4. Obstructive sleep apnea syndrome. 5. Hypertension. Plan: 1. NPO after Midnite to nite 2. Continue antibiotics. 3. Nebs qid , Duoneb 4. O2 PRN 2 L 5. Coag profile, CBC 6. Solumedrol 40 mg BID Brittany Richardson MD March 12, 2018 15:36
--- NOTE | 2018-03-12 18:11 | HHI.PR ---
Subjective Remarks Patient is very unpleasant he is not happy with anything to get here in the hospital Is not happy that he has to wait to get that VATS I was unable to get too much history from him today, Objective Vitals Vital Signs Date Time Temp Pulse Resp B/P (MAP) Pulse Ox O2 Delivery O2 Flow Rate FiO2 03/12/18 16:25 18 03/12/18 12:00 98.8 97 22 149/71 (97) 97 03/12/18 08:00 97.6 75 22 134/72 (92) 94 03/12/18 07:40 95 21 03/12/18 04:00 98.0 105 20 129/58 (81) 94 03/12/18 00:00 97.5 103 20 119/70 (86) 93 03/12/18 00:00 Nasal Cannula 2.00 03/11/18 20:18 93 Nasal Cannula 2.00 03/11/18 20:00 97.0 105 20 118/64 (82) 94 03/11/18 20:00 Nasal Cannula 2.00 I/O 03/11/18 03/11/18 03/11/18 03/12/18 03/12/18 03/12/18 07:00 15:00 23:00 07:00 15:00 23:00 Intake Total 960 ml 1680 ml 400 ml Balance 960 ml 1680 ml 400 ml Intake Oral 960 ml 1680 ml 400 ml # Voids 6 6 3 # Bowel Movements 0 1 1 Result Diagram: 03/12/18 0756 03/12/18 0756 Objective Remarks GENERAL: This is a well-nourished, morbidly obese well-developed patient, in no apparent distress. NEUROLOGICAL: Awake and alert. Moves all extremity. Normal speech.no focal neurological deficit A/P Problem List: (1) Pulmonary nodules/lesions, multiple ICD Code: R91.8 - Other nonspecific abnormal finding of lung field Assessment and Plan The patient was admitted to [facility] in [place] after a 2 week period of cough with hemoptysis after being referred by his primary care physician following an abnormal office chest x-ray. The patient presented to the emergency room on 03/01/2018. He was found to have extensive multilobular nodular scattered densities with surrounding edema on CT of chest with contrast. These were thought to represent areas of pneumonia versus metastatic deposits versus early abscesses. He had an extensive workup including Gram stain and cultures, upper respiratory bacterial and viral panel by PCR, Streptococcus pneumonia, and Legionella pneumonia urine antigen, mycoplasma pneumonia and others with no remarkable testing outcomes. He had a nostril culture for MRSA that did come back positive. The patient was deemed to be high risk for bronchoscopy due to his significant morbid obesity with a BMI of 50 and he declined intubation if required. CT guided right lung biopsy preliminarily negative per hospitalist progress note on 03/08. He was accepted in transfer by Dr. Nunes at [facility] for possible open lung biopsy. 03/10: WBC 24K, appreciate pulmonary and hematology, CTS consultation, plan for lung biopsy, Repeat CBC BMP in a.m., monitor vital 03/11: Appreciate pulmonology and CVS consult plan for VATS, complained of cramping in his hands and arms, will check BMP 03/12: Awaiting VATS on Tuesday. A/P: Extensive multilobular reticulonodular scattered densities with surrounding edema on CT of chest with contrast at [facility]. These were thought to represent areas of pneumonia versus metastatic deposits (preliminary right lung biopsy negative for malignancy) versus early abscesses - consult CTS for possible open lung biopsy - appreciate assistance - Consult pulmonology - appreciate assistance - continue antibiotics for pneumonia: IV vancomycin and levaquin - continue duonebs q4h prn sob/wheezing COPD exacerbation - supplemental oxygen as needed - duonebs - continue IV solumedrol Hypertension - Continue hydralazine as needed and routine lisinopril - monitor trends in bp and adjust treatments as indicated Benign prostatic hypertrophy - Continue terra Zosyn Chronic back pain - Continue as needed Percocet 10/325 mg 2 tabs every 6 hours as needed Steroid-induced hyperglycemia - Continue Levemir - Accu-Cheks before meals and at bedtime with low-dose NovoLog sliding scale coverage - Hypoglycemia protocol - Monitor trends and blood glucose readings and adjust treatments as indicated Peripheral edema -Continue Lasix and chlorthalidone as previously ordered -Monitor I&O Tobacco abuse -Counseled regarding cessation -Nicotine patch Morbid obesity - will need to work on weight loss DVT prophylaxis -Lovenox 40 mg IV subcu every 24 hours Janneth Porter MD March 12, 2018 18:11
[2018-03-12 21:09] LABS: AUTOMATED NEUTROPHIL # 19.7 TH/MM3 (1.8-7.7); BASOPHIL # 0.1 TH/MM3 (0-0.2); BASOPHIL % 0.5 % (0.0-2.0); EOSINOPHIL # 0.1 TH/MM3 (0-0.4); EOSINOPHIL % 0.2 % (0.0-4.0); HEMATOCRIT 38.3 % (39.0-51.0); HEMOGLOBIN 12.5 GM/DL (13.0-17.0); LYMPH % 9.8 % (9.0-44.0); LYMPHOCYTE # 2.4 TH/MM3 (1.0-4.8); MEAN CELL VOLUME 88.9 FL (80.0-100.0); MEAN CORPUSCULAR HEMOGLOBIN 29.1 PG (27.0-34.0); MEAN CORPUSCULAR HGB CONC 32.7 % (32.0-36.0); MEAN PLATELET VOLUME 7.8 FL (7.0-11.0); MONO % 8.4 % (0.0-8.0); NEUT % 81.1 % (16.0-70.0); PLATELET COUNT 258 TH/MM3 (150-450); RED CELL DISTRIBUTION WIDTH 16.5 % (11.6-17.2); WHITE BLOOD COUNT 24.3 TH/MM3 (4.0-11.0)
[2018-03-12] MEDS: INSULIN DETEMIR 100 UNITS/ML VIAL SQ SCH (21:26)
[2018-03-12] MEDS: TERAZOSIN HCL 5 MG CAP PO SCH (21:29)
[2018-03-12 21:32] LABS: CREATININE 1.64 MG/DL (0.60-1.30)
[2018-03-12 21:34] LABS: TOTAL BILIRUBIN ADULT 0.4 MG/DL (0.2-1.0)
[2018-03-12 21:36] LABS: BANDS 2 % (0-6); LYMPHOCYTES 19 % (9-44); MONOCYTES 8 % (0-8); MYELOCYTES 1 % (0-0); NEUTROPHIL # MANUAL DIFF 17.7 TH/MM3 (1.8-7.7); POLYS (SEG NEUTROPHILS) 70 % (16-70)
[2018-03-12] MEDS ORDERED: LACTATED RINGER'S 1000 ML IV PRN (22:00)
[2018-03-12] MEDS ORDERED: POVIDONE IODINE 5% (ANTISEPSIS KIT) 4 APPLICATIONS EACH NARE PRN (22:00)
[2018-03-12] MEDS ORDERED: SODIUM CHLORID 0.9% 500 ML IV PRN (22:00)
[2018-03-12] MEDS ORDERED: CHLORHEXIDINE GLUCONATE 2 % 1 PACK (2 CLOTHS) TOPICAL PRN (22:00)
[2018-03-12] MEDS ORDERED: METOPROLOL TARTRATE 25 MG TAB PO PRN (22:00)
[2018-03-12 22:07] LABS: LACTIC ACID SEPSIS PROTOCOL 2.7 mmol/L (0.4-2.0)
[2018-03-13] VITALS (8 sets, daily range): BP systolic 102–138; BP diastolic 68–97; PULSE 89–105; RESP 17–20; TEMP 97.2–98.9; O2SAT 92–95
[2018-03-13] MEDS: oxyCODONE/ACETAMINOPHEN 10 MG/325 MG TAB PO PRN ×4 (03:44→22:16)
[2018-03-13] MEDS ORDERED: BUPIVACAINE HCL PF 0.5% 30 ML VIAL ONE (06:38)
[2018-03-13] MEDS ORDERED: ceFAZolin INJ 1,000 MG VIAL ONE (06:38)
[2018-03-13] MEDS ORDERED: ceFAZolin 2 GM PREMIX 0 ML ONE (06:38)
[2018-03-13] MEDS ORDERED: HEPARIN SODIUM - SQ 10,000 UNITS/ML VIAL ONE (06:39)
[2018-03-13] MEDS: INSULIN ASPART SUPPLEMENTAL SCALE SQ SCH ×4 (08:00→22:19)
[2018-03-13] MEDS ORDERED: SUGAMMADEX SODIUM 200 MG/2 ML VIAL IV PUSH ONE (08:01)
--- NOTE | 2018-03-13 08:11 | PD.CAR.PN ---
CVT Progress Note Subjective/Hospital Course: Unable to ventilate patient on the OR table under general anesthesia with copious bloody secretions from the tracheobronchial tree. Elevated peak airway pressures with marginal tidal volumes and poor oxygen saturations. Given this scenario, he will not tolerate open lung biopsy necessitating single-lung ventilation. Furthermore, it will pose a very high likelihood of blowing the staple line. Therefore, the procedure is being cancelled. Patient will return to PACU and further management by the medical team. Objective: Vital Signs Date Time Temp Pulse Resp B/P (MAP) Pulse Ox O2 Delivery O2 Flow Rate FiO2 03/13/18 07:00 Room Air 03/13/18 04:00 98.9 105 20 134/97 (109) 93 03/13/18 00:00 97.8 100 20 138/76 (96) 93 03/12/18 22:48 123/81 (95) 03/12/18 20:00 97.3 104 20 109/71 (84) 95 03/12/18 20:00 Room Air 03/12/18 16:25 18 03/12/18 16:00 98.5 122 22 109/55 (73) 97 03/12/18 12:00 98.8 97 22 149/71 (97) 97 Labs: Laboratory Tests Test 03/12/18 20:55 03/12/18 21:25 White Blood Count 24.3 TH/MM3 (4.0-11.0) Red Blood Count 4.30 MIL/MM3 (4.50-5.90) Hemoglobin 12.5 GM/DL (13.0-17.0) Hematocrit 38.3 % (39.0-51.0) Mean Corpuscular Volume 88.9 FL (80.0-100.0) Mean Corpuscular Hemoglobin 29.1 PG (27.0-34.0) Mean Corpuscular Hemoglobin Concent 32.7 % (32.0-36.0) Red Cell Distribution Width 16.5 % (11.6-17.2) Platelet Count 258 TH/MM3 (150-450) Mean Platelet Volume 7.8 FL (7.0-11.0) Neutrophils (%) (Auto) 81.1 % (16.0-70.0) Lymphocytes (%) (Auto) 9.8 % (9.0-44.0) Monocytes (%) (Auto) 8.4 % (0.0-8.0) Eosinophils (%) (Auto) 0.2 % (0.0-4.0) Basophils (%) (Auto) 0.5 % (0.0-2.0) Neutrophils # (Auto) 19.7 TH/MM3 (1.8-7.7) Lymphocytes # (Auto) 2.4 TH/MM3 (1.0-4.8) Monocytes # (Auto) 2.0 TH/MM3 (0-0.9) Eosinophils # (Auto) 0.1 TH/MM3 (0-0.4) Basophils # (Auto) 0.1 TH/MM3 (0-0.2) CBC Comment AUTO DIFF Differential Total Cells Counted 100 Neutrophils % (Manual) 70 % (16-70) Band Neutrophils % 2 % (0-6) Lymphocytes % 19 % (9-44) Monocytes % 8 % (0-8) Neutrophils # (Manual) 17.7 TH/MM3 (1.8-7.7) Myelocytes 1 % (0-0) Differential Comment FINAL DIFF MANUAL Platelet Estimate NORMAL (NORMAL) Platelet Morphology Comment NORMAL (NORMAL) Red Cell Morphology Comment NORMAL (NORMAL) Prothrombin Time 10.0 SEC (9.8-11.6) Prothromb Time International Ratio 1.0 RATIO Activated Partial Thromboplast Time 22.4 SEC (24.3-30.1) Creatinine 1.64 MG/DL (0.60-1.30) Estimat Glomerular Filtration Rate 43 ML/MIN (>89) Total Bilirubin 0.4 MG/DL (0.2-1.0) Lactic Acid Level 2.7 mmol/L (0.4-2.0) Result Diagram: 03/12/18205403/12/182054 Genaro Ballard MD March 13, 2018 08:11
[2018-03-13] MEDS ORDERED: DO NOT ADM ANY ANTICOAGULANT DRUGS PRN (08:20)
[2018-03-13] MEDS ORDERED: fentaNYL CITRATE 250 MCG/5 ML AMP ONE (08:30)
[2018-03-13] MEDS ORDERED: MIDAZOLAM HCL 2 MG/2 ML VIAL ONE (08:30)
[2018-03-13] MEDS: RESP: ALBUTEROL 2.5 MG/IPRATROPIUM 0.5 MG NEB (SCH) NEB ×5 (08:43→20:42)
[2018-03-13] MEDS ORDERED: CHLORHEXIDINE GLUCONATE 2 % 1 PACK (2 CLOTHS) TOPICAL PRN (08:45)
[2018-03-13] MEDS ORDERED: INSULIN HUMAN REGULAR 1,000 UNITS/10 ML VIAL SQ PRN (08:45)
[2018-03-13] MEDS ORDERED: SODIUM CHLORID 0.9% 500 ML IV PRN (08:45)
[2018-03-13] MEDS ORDERED: METOPROLOL TARTRATE 25 MG TAB PO PRN (08:45)
[2018-03-13] MEDS ORDERED: LACTATED RINGER'S 1000 ML IV PRN (08:45)
[2018-03-13] MEDS ORDERED: POVIDONE IODINE 5% (ANTISEPSIS KIT) 4 APPLICATIONS EACH NARE PRN (08:45)
[2018-03-13] MEDS: REMOVE OLD PATCH T-DERMAL SCH (09:00)
[2018-03-13] MEDS: ENOXAPARIN SODIUM 40 MG/0.4 ML SYRINGE SQ SCH (09:00)
[2018-03-13] MEDS: NICOTINE 21 MG/24 HR PATCH T-DERMAL SCH (09:00)
[2018-03-13] MEDS: LEVOFLOXACIN 750 MG PREMIX INJ 150 ML IV SCH (09:41)
[2018-03-13] MEDS ORDERED: PHARMACY ORDERED LAB ONE (09:45)
[2018-03-13] MEDS: CHLORTHALIDONE 50 MG TAB PO SCH (09:59)
[2018-03-13] MEDS: LISINOPRIL 20 MG TAB PO SCH ×2 (09:59→22:18)
[2018-03-13] MEDS: FUROSEMIDE 20 MG TAB PO SCH (10:00)
[2018-03-13] MEDS: SODIUM CHLORIDE 0.9% FLUSH 10 ML FLUSH IVF SCH (10:00)
[2018-03-13] MEDS: methylPREDNISolone SOD SUCC 40 MG/1 ML VIAL IV PUSH SCH ×2 (10:01→22:19)
[2018-03-13] MEDS: SODIUM CHLORIDE 0.9% FLUSH 10 ML FLUSH IV FLUSH SCH ×2 (10:06→22:20)
--- NOTE | 2018-03-13 10:27 | RADRPT ---
EXAM DATE/TIME: 03/13/2018 09:03 [place] COMPARISON: CHEST SINGLE AP, March 10, 2018, 13:00. INDICATIONS : Post-op Thoracotomy. MEDICAL HISTORY : None. SURGICAL HISTORY : PICC Line ENCOUNTER: Subsequent ACUITY: 4 - 6 days PAIN SCORE: 0/10 LOCATION: Bilateral chest FINDINGS: There is increased density in the left superhilar region and minimally at the bases. A significant ef fusion is not seen. The cardiomediastinal contours are unremarkable. Osseous structures are intact. There is a PICC line in place from the right arm. The tip overlies the right brachiocephalic vein re lorna. CONCLUSION: Left suprahilar and minimal bibasilar areas of atelectasis or consolidation. Aly Cantu MD on March 13, 2018 at 10:15 Board Certified Radiologist. This report was verified electronically.
--- NOTE | 2018-03-13 10:33 | EKG ---
Date Performed: 03/13/2018 Time Performed: 03:57:00 PTAGE: 57 years EKG: Sinus tachycardia rSr'(V1) - probable normal variant Borderline ECG NO PREVIOUS TRACING DOCTOR: Karlo Najera Interpretating Date/Time 03/13/2018 10:31:45
[2018-03-13] MEDS: VANCOMYCIN INJ 2,500 MG in SODIUM CHLORID 0.9% 500 ML INJ 500 ML IV SCH (11:26)
[2018-03-13] MEDS ORDERED: LIDOCAINE HCL 1% PF 5 ML SYRINGE OTHER ONE (12:00)
[2018-03-13] MEDS ORDERED: ROCURONIUM INJ 50 MG/5 ML SYRINGE IV PUSH ONE (12:00)
[2018-03-13] MEDS ORDERED: PROPOFOL 200 MG/20 ML AMP IV ONE (12:00)
[2018-03-13] MEDS ORDERED: SODIUM CHLORID 0.9% 500 ML INJ 500 ML IV ONE (12:00)
[2018-03-13] MEDS ORDERED: NORMOSOL R INJ 1,000 ML IV ONE (12:00)
--- NOTE | 2018-03-13 13:04 | HHI.PR ---
Subjective Remarks The Thoracotomy was cancelled due to High airway pressures. bronchoscopy was done. Mild hemoptysis. Off O2 . C/O chest pains. CXR is stable Objective Vital Signs Date Time Temp Pulse Resp B/P (MAP) Pulse Ox O2 Delivery O2 Flow Rate FiO2 03/13/18 12:15 92 21 03/13/18 12:00 97.7 91 18 116/78 (91) 03/13/18 09:50 97.2 89 18 115/68 (84) 94 03/13/18 09:15 98.1 93 14 109/50 (69) 96 Nasal Cannula 3 03/13/18 09:00 92 14 106/50 (68) 94 Nasal Cannula 3 03/13/18 08:45 96 14 96/52 (67) 97 Nasal Cannula 3 03/13/18 08:30 100 14 91/51 (64) 97 Nasal Cannula 4 03/13/18 08:18 98.1 102 14 103/58 (73) 98 Simple Mask 7 03/13/18 07:00 Room Air 03/13/18 04:00 98.9 105 20 134/97 (109) 93 03/13/18 00:00 97.8 100 20 138/76 (96) 93 03/12/18 22:48 123/81 (95) 03/12/18 20:00 97.3 104 20 109/71 (84) 95 03/12/18 20:00 Room Air 03/12/18 16:25 18 03/12/18 16:00 98.5 122 22 109/55 (73) 97 I/O 03/12/18 03/12/18 03/12/18 03/13/18 03/13/18 03/13/18 07:00 15:00 23:00 07:00 15:00 23:00 Intake Total 400 ml 240 ml 400 ml 200 ml Output Total 150 ml Balance 400 ml 240 ml 400 ml 50 ml Intake Oral 400 ml 240 ml 400 ml Other 200 ml Output Urine Total 150 ml # Voids 3 7 3 # Bowel Movements 1 3 Result Diagram: 03/12/18205403/12/182054 Objective Remarks GENERAL: This is a very obese, middle-aged man who is alert. Face is Flushed There is no peripheral edema. No lymphadenopathy. SKIN: Turgor was good. HEENT: Head is normocephalic. Pupils are reactive and equal. Throat was clear. Nasal mucosa clear. NECK: Supple, no bruits. No lymphadenopathy or thyromegaly. CHEST: Decreased excursions with occasional wheezes throughout both lung ascencio. Scattered crackles . HEART: The heart sounds are regular S1 and S2. No murmur. No S3. ABDOMEN: Obese and protuberant without masses. No organomegaly or tenderness. Bowel sounds are active. EXTREMITIES: Decreased peripheral pulses. Reflexes are 1+ with no gross motor deficits. No edema. NEUROLOGIC: The patient is alert, oriented, and cooperative. SKIN: No lesions. Assessment and Plan Assessment and Plan IMPRESSION: 1. Bilateral nodular pulmonary infiltrates, etiology undetermined. 2. Probable underlying chronic obstructive pulmonary disease and interstitial lung disease. 3. History of kidney stones. 4. Obstructive sleep apnea syndrome. 5. Hypertension. Plan: 1. Taper off IV solumedrol 2. Continue antibiotics. 3. Nebs qid , Duoneb 4. O2 PRN 2 L 5. ID consult 6. Schedule Lung biopsy at later date Brittany Richardson MD March 13, 2018 13:04
--- NOTE | 2018-03-13 14:28 | HHI.PR ---
Subjective Remarks Patient resting comfortably in bed, he is doing okay breathing unless he moves around and he gets dyspneic Failed attempt to do VATS biopsy, they were not able to ventilate patient, he had a bronchoscopy with some aspiration specimen Objective Vitals Vital Signs Date Time Temp Pulse Resp B/P (MAP) Pulse Ox O2 Delivery O2 Flow Rate FiO2 03/13/18 12:15 92 21 03/13/18 12:00 97.7 91 18 116/78 (91) 03/13/18 09:50 97.2 89 18 115/68 (84) 94 03/13/18 09:15 98.1 93 14 109/50 (69) 96 Nasal Cannula 3 03/13/18 09:00 92 14 106/50 (68) 94 Nasal Cannula 3 03/13/18 08:45 96 14 96/52 (67) 97 Nasal Cannula 3 03/13/18 08:30 100 14 91/51 (64) 97 Nasal Cannula 4 03/13/18 08:18 98.1 102 14 103/58 (73) 98 Simple Mask 7 03/13/18 07:00 Room Air 03/13/18 04:00 98.9 105 20 134/97 (109) 93 03/13/18 00:00 97.8 100 20 138/76 (96) 93 03/12/18 22:48 123/81 (95) 03/12/18 20:00 97.3 104 20 109/71 (84) 95 03/12/18 20:00 Room Air 03/12/18 16:25 18 03/12/18 16:00 98.5 122 22 109/55 (73) 97 I/O 03/12/18 03/12/18 03/12/18 03/13/18 03/13/18 03/13/18 06:59 14:59 22:59 06:59 14:59 22:59 Intake Total 400 ml 240 ml 400 ml 200 ml Output Total 150 ml Balance 400 ml 240 ml 400 ml 50 ml Intake Oral 400 ml 240 ml 400 ml Other 200 ml Output Urine Total 150 ml # Voids 3 7 3 # Bowel Movements 1 3 Result Diagram: 03/12/18205403/12/182054 Objective Remarks GENERAL: This is a well-nourished, morbidly obese well-developed patient, in no apparent distress. NEUROLOGICAL: Awake and alert. Moves all extremity. Normal speech.no focal neurological deficit A/P Problem List: (1) Pulmonary nodules/lesions, multiple ICD Code: R91.8 - Other nonspecific abnormal finding of lung field Assessment and Plan The patient was admitted to [facility] in [place] after a 2 week period of cough with hemoptysis after being referred by his primary care physician following an abnormal office chest x-ray. The patient presented to the emergency room on 03/01/2018. He was found to have extensive multilobular nodular scattered densities with surrounding edema on CT of chest with contrast. These were thought to represent areas of pneumonia versus metastatic deposits versus early abscesses. He had an extensive workup including Gram stain and cultures, upper respiratory bacterial and viral panel by PCR, Streptococcus pneumonia, and Legionella pneumonia urine antigen, mycoplasma pneumonia and others with no remarkable testing outcomes. He had a nostril culture for MRSA that did come back positive. The patient was deemed to be high risk for bronchoscopy due to his significant morbid obesity with a BMI of 50 and he declined intubation if required. CT guided right lung biopsy preliminarily negative per hospitalist progress note on 03/08. He was accepted in transfer by Dr. Nunes at [facility] for possible open lung biopsy. 03/10: WBC 24K, appreciate pulmonary and hematology, CTS consultation, plan for lung biopsy, Repeat CBC BMP in a.m., monitor vital 03/11: Appreciate pulmonology and CVS consult plan for VATS, complained of cramping in his hands and arms, will check BMP 03/12: Awaiting VATS on Tuesday. 03/13:Failed attempt to do VATS biopsy, they were not able to ventilate patient, he had a bronchoscopy with some aspiration specimen, pulmonology following discussed with Dr. bender A/P: Extensive multilobular reticulonodular scattered densities with surrounding edema on CT of chest with contrast at [facility]. These were thought to represent areas of pneumonia versus metastatic deposits (preliminary right lung biopsy negative for malignancy) versus early abscesses - consult CTS for possible open lung biopsy - appreciate assistance - Consult pulmonology - appreciate assistance - continue antibiotics for pneumonia: IV vancomycin and levaquin - continue duonebs q4h prn sob/wheezing COPD exacerbation - supplemental oxygen as needed - duonebs - continue IV solumedrol Hypertension - Continue hydralazine as needed and routine lisinopril - monitor trends in bp and adjust treatments as indicated Benign prostatic hypertrophy - Continue raulitoa Binu Chronic back pain - Continue as needed Percocet 10/325 mg 2 tabs every 6 hours as needed Steroid-induced hyperglycemia - Continue Levemir - Accu-Cheks before meals and at bedtime with low-dose NovoLog sliding scale coverage - Hypoglycemia protocol - Monitor trends and blood glucose readings and adjust treatments as indicated Peripheral edema -Continue Lasix and chlorthalidone as previously ordered -Monitor I&O Tobacco abuse -Counseled regarding cessation -Nicotine patch Morbid obesity - will need to work on weight loss DVT prophylaxis -Lovenox 40 mg IV subcu every 24 hours Discharge Planning No plan on discharging at this point Janneth Porter MD March 13, 2018 14:28
--- NOTE | 2018-03-13 17:54 | MB ---
cc: Brian Birch MD DATE: 03/13/2018 REQUESTING PHYSICIAN: Dr. Richardson REASON: Atypical pneumonia. HISTORY OF PRESENT ILLNESS: He is a 57-year-old white male who was transferred to [place] from [facility] in [place]. The patient presented to [facility] with hemoptysis on 02/27/2018. He was also having problems with shortness of breath. He reports to me that his symptoms began approximately 2 weeks prior and that he was trying to take care of it himself and he was not getting better and therefore he went to [facility] for evaluation after he had a chest x-ray by his primary physician which was found to be abnormal. He underwent a workup at [facility] including ultrasound-guided biopsy of the lung. This was felt noted to be negative for malignancy. The patient was noted to possibly need open lung biopsy and therefore he was sent here to [place]. He continued to have hemoptysis. However, currently is not coughing up the blood, but he states that it feels like it is still present. He has some congestion when he coughs but does not bring up sputum. Cultures at [facility] were negative including sputum and blood cultures. Culture of the nares was positive for MRSA. The patient reportedly also had studies including testing for tuberculosis, mycoplasma, legionella and Strep pneumoniae which were negative. The Gram's stain of the sputum at [place] had mixed organisms, but the culture had normal zachariah. The patient's white count on 03/10/2018 was 24.8 and it came down to 21.5 early today and back up to 24.3. The patient's white blood cell count has been elevated above 20,000. Currently, it is 24.3. He underwent bronchoscopy early today. The results are pending. The patient has been afebrile since admission here at [place] on 03/09/2018. His chest x-ray today shows left suprahilar and minimal basilar areas of atelectasis or consolidation. The patient states that his main problem now is the breathing. He states that he is unable to lie flat and he has to sit up or at least recline to sleep. The patient has no history of recent travels outside of [place]. He denies exposure to unusual pets. They have a dog at home, but no other pets. He denies exposure to unusual industrial chemicals. PAST MEDICAL HISTORY: Chronic tobacco abuse, obstructive sleep apnea recently diagnosed, degenerative joint disease, morbid obesity, nephrolithiasis. PAST SURGICAL HISTORY: History of abdominal aortic aneurysm repair in 2016, history of left knee replacement approximately 20 years ago, history of left breast mass excision, tonsillectomy, septoplasty, lumbar spine surgery. ALLERGIES: ADHESIVES. MEDICATIONS: 1. Levaquin. 2. Vancomycin. 3. Methylprednisolone. 4. Albuterol. 5. Lovenox. 6. Lasix. 7. Nicotine patch. 8. Chlorthalidone. 9. Percocet 10 p.r.n. 10. Sliding scale insulin. 11. Levemir. 12. Prinivil. 13. Hytrin. SOCIAL HISTORY: The patient is . Smokes 2 packs of cigarettes a day. Denies alcohol use. Denies illicit drug use. 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 He reports that he was able to do his usual work activity prior to feeling sick with onset of shortness of breath 2 weeks before he presented to [facility] on 02/27/2018. FAMILY HISTORY: Noncontributory. REVIEW OF SYSTEMS: Positive for shortness of breath and hemoptysis. Otherwise, negative on a 10-point review. PHYSICAL EXAMINATION: GENERAL: This is a morbidly obese male who is awake and alert, in no acute distress. VITAL SIGNS: Temperature 97.9, BP 106/69, respirations 18, heart rate 104. HEENT: Head atraumatic. HEENT: Extraocular movements are grossly intact, pupils reactive to light. No icterus. No conjunctivae erythema. Oropharynx moist mucosa without lesions. NECK: Supple without adenopathy. LUNGS: Slight rhonchi diffusely. HEART: Regular S1 and S2. No murmurs. No rubs. No gallops. ABDOMEN: Obese. Bowel sounds present. Soft, nontender. RECTAL: Not performed. EXTREMITIES: No clubbing or cyanosis. 1+ edema of the lower extremities at the dorsum of the feet and tibia. SKIN: No diffuse rash. No petechial lesions. NEUROLOGIC: No gross focal findings. PSYCHIATRIC: The patient calm and cooperative. LABORATORY DATA: WBC 24.3, platelets 258, hemoglobin 12.5, 81% neutrophils, 9% lymphocytes, 8% monocytes, 0.2% eosinophils. Sedimentation rate 7. Creatinine 1.64, BUN 42, estimated GFR of 43. Liver function tests normal. Urinalysis unremarkable. Blood cultures: No growth in 1 day. The patient had 2-D echocardiogram at [facility] which did not reveal any heart valve lesion. IMPRESSION: Hemoptysis and dyspnea in a patient with lung infiltrates. Prior workup for infectious disease has been negative. Scattered densities with surrounding edema were noted on radiographic studies. Possible atypical pneumonia/pneumonitis. The patient also may have noninfectious cause of the lung infiltrates and hemoptysis. His white blood cell count is elevated, but this could also be associated with steroids being administered. The patient is status post bronchoscopy and studies are pending. The patient does not appear to be immunocompromised and therefore the infiltrates are less likely to be due to opportunistic bacterias but could be atypical pneumonia. RECOMMENDATIONS: 1. Continue the vancomycin. 2. Continue Levaquin. 3. Add Azithromycin. 4. Follow the culture from the bronchoscopy specimen. . 5. Monitor bronch pathology. 6. Monitor the clinical status. The patient may require open lung biopsy if the bronchoscopy is unrevealing. Thank you for this consultation. I will monitor the patient's progress with you and make further recommendations and followup if necessary. MD KEITH Sung/MEENA , 04:54 PM , 05:53 PM LUI
[2018-03-13] MEDS: AZITHROMYCIN INJ 500 MG in SODIUM CHLOR 0.9% 250 ML INJ 250 ML IV SCH (18:06)
[2018-03-13] MEDS: TERAZOSIN HCL 5 MG CAP PO SCH (22:16)
[2018-03-13] MEDS: INSULIN DETEMIR 100 UNITS/ML VIAL SQ SCH (22:18)
[2018-03-14] VITALS (8 sets, daily range): BP systolic 109–188; BP diastolic 58–76; PULSE 73–107; RESP 17–22; TEMP 97.7–98.5; O2SAT 93–96
[2018-03-14] MEDS: oxyCODONE/ACETAMINOPHEN 10 MG/325 MG TAB PO PRN ×4 (04:32→23:12)
[2018-03-14] MEDS: RESP: ALBUTEROL 2.5 MG/IPRATROPIUM 0.5 MG NEB (SCH) NEB ×2 (07:40→12:04)
[2018-03-14] MEDS: ENOXAPARIN SODIUM 40 MG/0.4 ML SYRINGE SQ SCH (09:00)
[2018-03-14] MEDS: SODIUM CHLORIDE 0.9% FLUSH 10 ML FLUSH IV FLUSH SCH ×2 (09:00→23:12)
[2018-03-14] MEDS: INSULIN ASPART SUPPLEMENTAL SCALE SQ SCH ×4 (09:06→23:14)
[2018-03-14] MEDS: REMOVE OLD PATCH T-DERMAL SCH (09:08)
[2018-03-14] MEDS: NICOTINE 21 MG/24 HR PATCH T-DERMAL SCH (09:08)
[2018-03-14] MEDS: methylPREDNISolone SOD SUCC 40 MG/1 ML VIAL IV PUSH SCH ×2 (09:11→23:12)
[2018-03-14] MEDS: SODIUM CHLORIDE 0.9% FLUSH 10 ML FLUSH IVF SCH (09:11)
[2018-03-14] MEDS: CHLORTHALIDONE 50 MG TAB PO SCH (09:12)
[2018-03-14] MEDS: LISINOPRIL 20 MG TAB PO SCH ×2 (09:12→23:11)
[2018-03-14] MEDS: FUROSEMIDE 20 MG TAB PO SCH (09:12)
[2018-03-14] MEDS: VANCOMYCIN INJ 2,500 MG in SODIUM CHLORID 0.9% 500 ML INJ 500 ML IV SCH (09:20)
[2018-03-14] MEDS ORDERED: PHARMACY ORDERED LAB ONE (09:45)
--- NOTE | 2018-03-14 12:59 | HHI.IDPN ---
Note Infectious Disease Note Patient is lying reclined in bed. He states that he feels a heavy pressure in his chest. Notes that he still coughing up clumps of blood. Afebrile. Attempt at bronchoscopy yesterday had to be aborted because of blood in the tracheobronchial tree and difficulty ventilating. The patient presented to [facility] with hemoptysis and shortness of breath on 02/27/2018. Cultures at [facility] were negative including sputum and blood cultures. Culture of the nares was positive for MRSA. PAST MEDICAL HISTORY: Chronic tobacco abuse, obstructive sleep apnea recently diagnosed, degenerative joint disease, morbid obesity, nephrolithiasis. PAST SURGICAL HISTORY: History of abdominal aortic aneurysm repair in 2016, history of left knee replacement approximately 20 years ago, history of left breast mass excision, tonsillectomy, septoplasty, lumbar spine surgery. ALLERGIES: ADHESIVES. MEDICATIONS: Current Medications Medications (Trade) Dose Ordered Sig/Nick Route PRN Reason Start Time Stop Time Status Last Admin Dose Admin Sodium Chloride (NS Flush) 2 ml UNSCH PRN IV FLUSH FLUSH AFTER USING IV ACCESS 03/09/18 23:30 Sodium Chloride (NS Flush) 2 ml BID IV FLUSH 03/10/18 09:00 03/13/18 22:20 Acetaminophen (Tylenol) 650 mg Q4H PRN PO TEMP > 100.4 03/09/18 23:30 Magnesium Hydroxide (Milk Of Magnvijay Liq) 30 ml Q12H PRN PO Mild constipation 03/09/18 23:30 Sennosides (Senokot) 17.2 mg Q12H PRN PO Moderate constipation 03/09/18 23:30 Bisacodyl (Dulcolax Supp) 10 mg DAILY PRN RECTAL SEVERE CONSITIPATION 03/09/18 23:30 Enoxaparin Sodium (Lovenox Inj) 40 mg DAILY SQ 03/10/18 09:00 03/12/18 08:59 Furosemide (Lasix) 20 mg DAILY PO 03/10/18 09:00 03/14/18 09:12 Hydralazine HCl (Apresoline) 25 mg Q6HR PRN PO SBP>160, DBP>90 03/10/18 00:30 Insulin Detemir (Levemir Inj) 10 units HS SQ 03/10/18 00:30 03/13/18 22:18 Albuterol/ Ipratropium (Duoneb Neb) 1 ampule Q4HR NEB PRN NEB SOB/WHEEZING 03/10/18 00:45 Lisinopril (Prinivil) 20 mg BID PO 03/10/18 00:30 03/14/18 09:12 Terazosin HCl (Hytrin) 5 mg HS PO 03/10/18 00:30 03/13/18 22:16 Pharmacy Profile Note 0 ml @ 0 mls/hr UNSCH OTHER 03/10/18 00:30 Sodium Chloride (NS Flush) DAILY IVF 03/10/18 09:00 03/14/18 09:11 Heparin Sodium (Porcine) (Heparin Central Flush) DAILY IV FLUSH 03/10/18 09:00 03/14/18 09:11 Sodium Chloride (NS Flush) UNSCH PRN IVF SEE PROTOCOL 03/10/18 00:45 Heparin Sodium (Porcine) (Heparin Central Flush) UNSCH PRN IV FLUSH SEE PROTOCOL 03/10/18 00:45 03/11/18 21:32 Sodium Chloride (NS Flush) UNSCH PRN IVF SEE PROTOCOL 03/10/18 00:45 Nicotine (Habitrol 21 Mg Patch.24 Hr) 1 patch DAILY T-DERMAL 03/10/18 09:00 03/14/18 09:08 Miscellaneous Information 1 DAILY T-DERMAL 03/11/18 09:00 03/14/18 09:08 Chlorthalidone (Hygroton) 25 mg DAILY PO 03/10/18 09:00 03/14/18 09:12 Dextrose (D50w (Vial) Inj) 50 ml UNSCH PRN IV PUSH HYPOGLYCEMIA-SEE COMMENTS 03/10/18 00:45 Glucagon (Glucagon Inj) 1 mg UNSCH PRN OTHER HYPOGLYCEMIA-SEE COMMENTS 03/10/18 00:45 Insulin Aspart (NovoLOG SUPPLEMENTAL SCALE) 1 ACHS SLIDING SCALE SQ 03/10/18 08:00 03/14/18 09:06 Miscellaneous (Pill Splitter) 1 ea UNSCH PRN OTHER SEE LABEL COMMENTS 03/10/18 00:45 Oxycodone/ Acetaminophen (Percocet 10-325 Mg) 2 tab Q6H PRN PO PAIN SCALE 1 TO 10 03/10/18 06:30 03/14/18 10:29 Vancomycin HCl 2500 mg/Sodium Chloride 525 ml @ 257.5 mls/ hr Q24H IV 03/11/18 10:00 03/14/18 09:20 Albuterol/ Ipratropium (Duoneb Neb) 1 ampule QID NEB NEB 03/10/18 16:00 03/14/18 12:04 Methylprednisolone Sodium Succinate (SoluMEDROL INJ) 40 mg BID IV PUSH 03/10/18 21:00 03/14/18 09:11 Cefazolin Sodium 500 mg/Sodium Chloride 505 ml @ 0 mls/hr DIRECTOR OF TECHNOLOGY IRRIGATION 03/10/18 14:30 03/17/18 14:29 Cefazolin Sodium 3000 mg/Sodium Chloride 130 ml @ 200 mls/hr DIRECTOR OF TECHNOLOGY IV 03/10/18 14:30 03/17/18 14:29 Chlorhexidine Gluconate (Hibiclens 4% Top Soln) 1 applic DIRECTOR OF TECHNOLOGY TOPICAL 03/10/18 14:30 03/17/18 14:29 Lactated Ringer's 1,000 ml @ 30 mls/hr Q24H PRN IV SEE LABEL COMMENTS 03/12/18 22:00 03/15/18 21:59 Sodium Chloride 500 ml @ 30 mls/hr [id number] PRN IV SEE LABEL COMMENTS 03/12/18 22:00 03/15/18 21:59 Metoprolol Tartrate (Lopressor) 25 mg DIRECTOR OF TECHNOLOGY PRN PO SEE LABEL COMMENTS 03/12/18 22:00 03/15/18 21:59 Povidone Iodine (Betadine 5% Antisepsis Kit) 1 applic DIRECTOR OF TECHNOLOGY PRN EACH NARE SEE LABEL COMMENTS 03/12/18 22:00 03/15/18 21:59 Chlorhexidine Gluconate (Chlorhexidine 2% Cloth) 3 pack DIRECTOR OF TECHNOLOGY PRN TOPICAL SEE LABEL COMMENTS 03/12/18 22:00 03/15/18 21:59 Lactated Ringer's 1,000 ml @ 30 mls/hr Q24H PRN IV SEE LABEL COMMENTS 03/13/18 08:45 03/16/18 08:44 Sodium Chloride 500 ml @ 30 mls/hr [id number] PRN IV SEE LABEL COMMENTS 03/13/18 08:45 03/16/18 08:44 Metoprolol Tartrate (Lopressor) 25 mg DIRECTOR OF TECHNOLOGY PRN PO SEE LABEL COMMENTS 03/13/18 08:45 03/16/18 08:44 Povidone Iodine (Betadine 5% Antisepsis Kit) 1 applic DIRECTOR OF TECHNOLOGY PRN EACH NARE SEE LABEL COMMENTS 03/13/18 08:45 03/16/18 08:44 Chlorhexidine Gluconate (Chlorhexidine 2% Cloth) 3 pack DIRECTOR OF TECHNOLOGY PRN TOPICAL SEE LABEL COMMENTS 03/13/18 08:45 03/16/18 08:44 Insulin Human Regular (NovoLIN R INJ) See Protocol Table ... DIRECTOR OF TECHNOLOGY PRN SQ SEE PROTOCOL TABLE 03/13/18 08:45 03/16/18 08:44 Levofloxacin/ Dextrose 150 ml @ 100 mls/hr Q48H IV 03/15/18 09:00 Azithromycin 500 mg/Sodium Chloride 250 ml @ 250 mls/hr Q24H IV 03/13/18 18:00 03/13/18 18:06 SOCIAL HISTORY: The patient is . Smokes 2 packs of cigarettes a day. Denies alcohol use. Denies illicit drug use. He works for a company making [employer]. He reports that he was able to do his usual work activity prior to feeling sick with onset of shortness of breath 2 weeks before he presented to [facility] on 02/27/2018. Objective: Vital Signs Date Time Temp Pulse Resp B/P (MAP) Pulse Ox O2 Delivery O2 Flow Rate FiO2 03/14/18 08:04 98.0 101 22 110/58 (75) 93 03/14/18 07:42 94 21 03/14/18 04:00 98.1 101 18 131/66 (87) 94 03/14/18 00:00 98.1 93 18 109/69 (82) 94 03/13/18 20:42 95 21 03/13/18 20:00 98.1 100 17 102/71 (81) 94 03/13/18 20:00 Room Air 03/13/18 16:00 97.9 104 18 106/69 (81) 94 03/13/18 16:00 90 Laboratory Tests Test 03/12/18 20:55 White Blood Count 24.3 TH/MM3 Red Blood Count 4.30 MIL/MM3 Hemoglobin 12.5 GM/DL Hematocrit 38.3 % Mean Corpuscular Volume 88.9 FL Mean Corpuscular Hemoglobin 29.1 PG Mean Corpuscular Hemoglobin Concent 32.7 % Red Cell Distribution Width 16.5 % Platelet Count 258 TH/MM3 Mean Platelet Volume 7.8 FL Neutrophils (%) (Auto) 81.1 % Lymphocytes (%) (Auto) 9.8 % Monocytes (%) (Auto) 8.4 % Eosinophils (%) (Auto) 0.2 % Basophils (%) (Auto) 0.5 % Neutrophils # (Auto) 19.7 TH/MM3 Lymphocytes # (Auto) 2.4 TH/MM3 Monocytes # (Auto) 2.0 TH/MM3 Eosinophils # (Auto) 0.1 TH/MM3 Basophils # (Auto) 0.1 TH/MM3 CBC Comment AUTO DIFF Differential Total Cells Counted 100 Neutrophils % (Manual) 70 % Band Neutrophils % 2 % Lymphocytes % 19 % Monocytes % 8 % Neutrophils # (Manual) 17.7 TH/MM3 Myelocytes 1 % Differential Comment FINAL DIFF MANUAL Platelet Estimate NORMAL Platelet Morphology Comment NORMAL Red Cell Morphology Comment NORMAL Laboratory Tests Test 03/12/18 20:55 03/12/18 21:25 Creatinine 1.64 MG/DL Estimat Glomerular Filtration Rate 43 ML/MIN Total Bilirubin 0.4 MG/DL Lactic Acid Level 2.7 mmol/L Microbiology Date/Time Source Procedure Growth Status 03/12/18 21:25 Blood Line Aerobic Blood Culture - Preliminary NO GROWTH IN 2 DAYS Resulted 03/12/18 21:25 Blood Line Anaerobic Blood Culture - Preliminary NO GROWTH IN 2 DAYS Resulted 03/12/18 20:55 Blood Line Aerobic Blood Culture - Preliminary NO GROWTH IN 2 DAYS Resulted 03/12/18 20:55 Blood Line Anaerobic Blood Culture - Preliminary NO GROWTH IN 2 DAYS Resulted Imaging: Chest X-Ray 03/13/18 0000 Signed Impressions: Service Date/Time: Tuesday, March 13, 2018 09:03 - CONCLUSION: Left suprahilar and minimal bibasilar areas of atelectasis or consolidation. Aly Cantu MD PHYSICAL EXAMINATION: GENERAL: Patient in no acute distress. Awake and alert. HEENT: Extraocular movements are grossly intact, pupils reactive to light. No icterus. No conjunctivae erythema. Oropharynx moist mucosa without lesions. NECK: Supple without adenopathy. LUNGS: Slight rhonchi. HEART: Regular S1 and S2. No murmurs. No rubs. No gallops. ABDOMEN: Obese. Bowel sounds present. Soft, nontender. EXTREMITIES: No clubbing or cyanosis. 1+ edema of the lower extremities at the dorsum of the feet and tibia. SKIN: No diffuse rash. No petechial lesions. NEUROLOGIC: No gross focal findings. PSYCHIATRIC: Calm and cooperative. IMPRESSION: Hemoptysis and dyspnea in a patient with lung infiltrates. Prior workup for infectious disease has been negative. Scattered densities with surrounding edema were noted on radiographic studies. Possible atypical pneumonia/pneumonitis. The patient also may have noninfectious cause of the lung infiltrates and hemoptysis. His white blood cell count is elevated, but this could also be associated with steroids being administered. The patient does not appear to be immunocompromised and therefore the infiltrates are less likely to be due to opportunistic bacteria but could be atypical pneumonia. MRSA positive nares testing. However I doubt this is related to this pulmonary Presentation. RECOMMENDATIONS: 1. Continue vancomycin. 2. Continue Levaquin. 3. Continue azithromycin. 4. Monitor any cultures which are obtained if patient is able to undergo procedure. Plan for VATS being entertained. 5. Monitor clinical status. Brian Birch MD March 14, 2018 12:59
--- NOTE | 2018-03-14 14:21 | PD.CAR.PN ---
CVT Progress Note Subjective/Hospital Course: 03/13 Unable to ventilate patient on the OR table under general anesthesia with copious bloody secretions from the tracheobronchial tree. Elevated peak airway pressures with marginal tidal volumes and poor oxygen saturations. Given this scenario, he will not tolerate open lung biopsy necessitating single-lung ventilation. Furthermore, it will pose a very high likelihood of blowing the staple line. Therefore, the procedure is being cancelled. Patient will return to PACU and further management by the medical team. 03/14 pt sitting up on side of bed on room air pt not a surgical candidate at this time possible CT guided BX approach ? will be receiving dining room tables set up attendant antibiotics Objective: Vital Signs Date Time Temp Pulse Resp B/P (MAP) Pulse Ox O2 Delivery O2 Flow Rate FiO2 03/14/18 13:24 Room Air 03/14/18 12:04 98.0 92 22 129/74 (92) 94 03/14/18 08:04 98.0 101 22 110/58 (75) 93 03/14/18 07:42 94 21 03/14/18 04:00 98.1 101 18 131/66 (87) 94 03/14/18 00:00 98.1 93 18 109/69 (82) 94 03/13/18 20:42 95 21 03/13/18 20:00 98.1 100 17 102/71 (81) 94 03/13/18 20:00 Room Air 03/13/18 16:00 97.9 104 18 106/69 (81) 94 03/13/18 16:00 90 Result Diagram: 03/12/18205403/12/182054 (1) Pulmonary nodules/lesions, multiple Plan: surgery cancelled continue to follow with pulm ? Ct guided BX instead Mirta Jimenez March 14, 2018 14:20
--- NOTE | 2018-03-14 14:47 | HHI.PR ---
Subjective Remarks The Thoracotomy was cancelled due to High airway pressures. bronchoscopy was done. Still Mild hemoptysis. Need to get Biopsy done. D/W Dr Holt Off O2 . C/O chest pains. CXR is stable Objective Vital Signs Date Time Temp Pulse Resp B/P (MAP) Pulse Ox O2 Delivery O2 Flow Rate FiO2 03/14/18 13:24 Room Air 03/14/18 12:04 98.0 92 22 129/74 (92) 94 03/14/18 08:04 98.0 101 22 110/58 (75) 93 03/14/18 07:42 94 21 03/14/18 04:00 98.1 101 18 131/66 (87) 94 03/14/18 00:00 98.1 93 18 109/69 (82) 94 03/13/18 20:42 95 21 03/13/18 20:00 98.1 100 17 102/71 (81) 94 03/13/18 20:00 Room Air 03/13/18 16:00 97.9 104 18 106/69 (81) 94 03/13/18 16:00 90 I/O 03/13/18 03/13/18 03/13/18 03/14/18 03/14/18 03/14/18 07:00 15:00 23:00 07:00 15:00 23:00 Intake Total 400 ml 875 ml 480 ml 100 ml Output Total 150 ml Balance 400 ml 725 ml 480 ml 100 ml Intake Oral 400 ml 480 ml 100 ml IV Total 675 ml Other 200 ml Output Urine Total 150 ml # Voids 3 2 4 Result Diagram: 03/12/18205403/12/182054 Objective Remarks GENERAL: This is a very obese, middle-aged man who is alert. Face is Flushed There is no peripheral edema. No lymphadenopathy. SKIN: Turgor was good. HEENT: Head is normocephalic. Pupils are reactive and equal. Throat was clear. Nasal mucosa clear. NECK: Supple, no bruits. No lymphadenopathy or thyromegaly. CHEST: Decreased excursions with occasional wheezes throughout both lung ascencio.Occ crackles . HEART: The heart sounds are regular S1 and S2. No murmur. No S3. ABDOMEN: Obese and protuberant without masses. No organomegaly or tenderness. Bowel sounds are active. EXTREMITIES: Decreased peripheral pulses. Reflexes are 1+ with no gross motor deficits. No edema. NEUROLOGIC: The patient is alert, oriented, and cooperative. SKIN: No lesions. Assessment and Plan Assessment and Plan IMPRESSION: 1. Bilateral nodular pulmonary infiltrates, etiology undetermined. 2. Probable underlying chronic obstructive pulmonary disease and interstitial lung disease. 3. History of kidney stones. 4. Obstructive sleep apnea syndrome. 5. Hypertension. Plan: 1. Will get CT chest W/O 2. Continue antibiotics. 3. Nebs qid , Duoneb 4. O2 PRN 2 L 5. PFT at Bedside 6. Schedule Lung biopsy at later date 7. D/C IV Steroids Brittany Richardson MD March 14, 2018 14:47
--- NOTE | 2018-03-14 16:06 | RADRPT ---
EXAM DATE/TIME: 03/14/2018 15:35 [facility] COMPARISON: No previous studies available for comparison. INDICATIONS : Bilateral infiltrates RADIATION DOSE: 19.26 CTDIvol (mGy) MEDICAL HISTORY : Chronic obstructive pulmonary disease. Hypertension. Renal calculi. SURGICAL HISTORY : None. ENCOUNTER: Initial ACUITY: 1 day PAIN SCALE: 0/10 LOCATION: Bilateral chest TECHNIQUE: Volumetric scanning of the chest was performed. Using automated exposure control and adjustment of t he mA and/or kV according to patient size, radiation dose was kept as low as reasonably achievable to obtain optimal diagnostic quality images. DICOM format image data is available electronically for r eview and comparison. Follow-up recommendations for detected pulmonary nodules are based at a minimum on nodule size and pa tient risk factors according to Fleischner Society Guidelines. FINDINGS: There are numerous nodules in both lungs ranging in size from several millimeters to 3 cm in diameter in the left upper lobe. Some nodules or consolidative in appearance and some are solid in appearance and most nodules have a halo of groundglass opacity around them. These findings are nonspecific. Dif ferential diagnosis is given below. There is no pleural or pericardial effusion. No hilar, mediastinal axillary adenopathy. No acute find ings in upper abdomen. CONCLUSION: 1. Numerous nodules in the lungs bilaterally most of which are associated with a halo of groundglass opacity. The findings are nonspecific. Differential diagnosis includes metastatic disease, especially metastatic disease associated with hemorrhage. Other considerations include Nimisha's granulomatosis , eosinophilic pneumonia, invasive pulmonary aspergillosis and bronchiolitis obliterans with organizi ng pneumonia. If patient is immunosuppressed also consider Kaposi's sarcoma as well as lymphoma. Barron Ríos MD on March 14, 2018 at 15:54 Board Certified Radiologist. This report was verified electronically.
--- NOTE | 2018-03-14 16:21 | HHI.PR ---
Subjective Remarks Beside dyspnea on ambulation no other acute issue patient resting in bed I discussed with him, at this point awaiting specimen results from the bronchoscopy yesterday, pulmonology working on optimizing him pulmonology respiratory [place] to be able to have VATS biopsy Objective Vitals Vital Signs Date Time Temp Pulse Resp B/P (MAP) Pulse Ox O2 Delivery O2 Flow Rate FiO2 03/14/18 13:24 Room Air 03/14/18 12:04 98.0 92 22 129/74 (92) 94 03/14/18 08:04 98.0 101 22 110/58 (75) 93 03/14/18 07:42 94 21 03/14/18 04:00 98.1 101 18 131/66 (87) 94 03/14/18 00:00 98.1 93 18 109/69 (82) 94 03/13/18 20:42 95 21 03/13/18 20:00 98.1 100 17 102/71 (81) 94 03/13/18 20:00 Room Air I/O 03/13/18 03/13/18 03/13/18 03/14/18 03/14/18 03/14/18 06:59 14:59 22:59 06:59 14:59 22:59 Intake Total 400 ml 875 ml 480 ml 100 ml Output Total 150 ml Balance 400 ml 725 ml 480 ml 100 ml Intake Oral 400 ml 480 ml 100 ml IV Total 675 ml Other 200 ml Output Urine Total 150 ml # Voids 3 2 4 Result Diagram: 03/12/18205403/12/182054 Objective Remarks GENERAL: This is a well-nourished, morbidly obese well-developed patient, in no apparent distress. NEUROLOGICAL: Awake and alert. Moves all extremity. Normal speech.no focal neurological deficit A/P Problem List: (1) Pulmonary nodules/lesions, multiple ICD Code: R91.8 - Other nonspecific abnormal finding of lung field Assessment and Plan The patient was admitted to [facility] in [place] after a 2 week period of cough with hemoptysis after being referred by his primary care physician following an abnormal office chest x-ray. The patient presented to the emergency room on 03/01/2018. He was found to have extensive multilobular nodular scattered densities with surrounding edema on CT of chest with contrast. These were thought to represent areas of pneumonia versus metastatic deposits versus early abscesses. He had an extensive workup including Gram stain and cultures, upper respiratory bacterial and viral panel by PCR, Streptococcus pneumonia, and Legionella pneumonia urine antigen, mycoplasma pneumonia and others with no remarkable testing outcomes. He had a nostril culture for MRSA that did come back positive. The patient was deemed to be high risk for bronchoscopy due to his significant morbid obesity with a BMI of 50 and he declined intubation if required. CT guided right lung biopsy preliminarily negative per hospitalist progress note on 03/08. He was accepted in transfer by Dr. Nunes at [facility] for possible open lung biopsy. 03/10: WBC 24K, appreciate pulmonary and hematology, CTS consultation, plan for lung biopsy, Repeat CBC BMP in a.m., monitor vital 03/11: Appreciate pulmonology and [facility] consult plan for VATS, complained of cramping in his hands and arms, will check BMP 03/12: Awaiting VATS on Tuesday. 03/13:Failed attempt to do VATS biopsy, they were not able to ventilate patient, he had a bronchoscopy with some aspiration specimen, pulmonology following discussed with Dr. bender 03/14:I discussed with him, at this point awaiting specimen results from the bronchoscopy yesterday, pulmonology working on optimizing him pulmonology respiratory [place] to be able to have VATS biopsy A/P: Extensive multilobular reticulonodular scattered densities with surrounding edema on CT of chest with contrast at [facility]. These were thought to represent areas of pneumonia versus metastatic deposits (preliminary right lung biopsy negative for malignancy) versus early abscesses - consult CTS for possible open lung biopsy - appreciate assistance - Consult pulmonology - appreciate assistance - continue antibiotics for pneumonia: IV vancomycin and levaquin - continue duonebs q4h prn sob/wheezing COPD exacerbation - supplemental oxygen as needed - duonebs - continue IV solumedrol Hypertension - Continue hydralazine as needed and routine lisinopril - monitor trends in bp and adjust treatments as indicated Benign prostatic hypertrophy - Continue terra Zosyn Chronic back pain - Continue as needed Percocet 10/325 mg 2 tabs every 6 hours as needed Steroid-induced hyperglycemia - Continue Levemir - Accu-Cheks before meals and at bedtime with low-dose NovoLog sliding scale coverage - Hypoglycemia protocol - Monitor trends and blood glucose readings and adjust treatments as indicated Peripheral edema -Continue Lasix and chlorthalidone as previously ordered -Monitor I&O Tobacco abuse -Counseled regarding cessation -Nicotine patch Morbid obesity - will need to work on weight loss DVT prophylaxis -Lovenox 40 mg IV subcu every 24 hours Discharge Planning No plan on discharging at this point Janneth Porter MD March 14, 2018 16:21
[2018-03-14] MEDS: AZITHROMYCIN INJ 500 MG in SODIUM CHLOR 0.9% 250 ML INJ 250 ML IV SCH (18:00)
[2018-03-14 20:45] LABS: AUTOMATED NEUTROPHIL # 18.6 TH/MM3 (1.8-7.7); BASOPHIL % 0.2 % (0.0-2.0); EOSINOPHIL % 0.1 % (0.0-4.0); HEMATOCRIT 35.3 % (39.0-51.0); HEMOGLOBIN 11.7 GM/DL (13.0-17.0); LYMPH % 9.1 % (9.0-44.0); MEAN CELL VOLUME 89.2 FL (80.0-100.0); MEAN CORPUSCULAR HEMOGLOBIN 29.5 PG (27.0-34.0); MEAN PLATELET VOLUME 8.1 FL (7.0-11.0); MONOCYTE # 1.6 TH/MM3 (0-0.9); NEUT % 83.6 % (16.0-70.0); PLATELET COUNT 249 TH/MM3 (150-450); RED BLOOD COUNT 3.96 MIL/MM3 (4.50-5.90); RED CELL DISTRIBUTION WIDTH 16.5 % (11.6-17.2); WHITE BLOOD COUNT 22.2 TH/MM3 (4.0-11.0)
[2018-03-14 20:57] LABS: PROTHROMBIN TIME - PATIENT 9.8 SEC (9.8-11.6)
[2018-03-14] MEDS: TERAZOSIN HCL 5 MG CAP PO SCH (23:11)
[2018-03-14] MEDS: INSULIN DETEMIR 100 UNITS/ML VIAL SQ SCH (23:13)
[2018-03-15] VITALS (9 sets, daily range): BP systolic 98–123; BP diastolic 54–71; PULSE 72–106; RESP 18–20; TEMP 97.3–98.2; O2SAT 92–96
[2018-03-15] MEDS: oxyCODONE/ACETAMINOPHEN 10 MG/325 MG TAB PO PRN ×4 (05:41→23:17)
[2018-03-15 07:16] LABS: CREATININE 0.8 MG/DL (0.60-1.30)
[2018-03-15] MEDS: INSULIN ASPART SUPPLEMENTAL SCALE SQ SCH ×4 (08:00→23:19)
[2018-03-15] MEDS: CHLORTHALIDONE 50 MG TAB PO SCH (09:00)
[2018-03-15] MEDS: LEVOFLOXACIN 750 MG PREMIX INJ 150 ML IV SCH ×2 (09:00→09:14)
[2018-03-15] MEDS: FUROSEMIDE 20 MG TAB PO SCH (09:00)
[2018-03-15] MEDS: LISINOPRIL 20 MG TAB PO SCH ×2 (09:00→21:00)
[2018-03-15] MEDS: methylPREDNISolone SOD SUCC 40 MG/1 ML VIAL IV PUSH SCH ×2 (09:00→09:12)
[2018-03-15] MEDS: ENOXAPARIN SODIUM 40 MG/0.4 ML SYRINGE SQ SCH (09:00)
[2018-03-15] MEDS: NICOTINE 21 MG/24 HR PATCH T-DERMAL SCH ×2 (09:00→09:14)
[2018-03-15] MEDS: SODIUM CHLORIDE 0.9% FLUSH 10 ML FLUSH IV FLUSH SCH ×2 (09:12→23:20)
[2018-03-15] MEDS: REMOVE OLD PATCH T-DERMAL SCH (09:14)
[2018-03-15] MEDS: SODIUM CHLORIDE 0.9% FLUSH 10 ML FLUSH IVF SCH (09:14)
[2018-03-15] MEDS: VANCOMYCIN INJ 2,500 MG in SODIUM CHLORID 0.9% 500 ML INJ 500 ML IV SCH (09:24)
[2018-03-15] MEDS ORDERED: PHARMACY ORDERED LAB ONE (09:45)
--- NOTE | 2018-03-15 13:00 | HHI.PR ---
Subjective Remarks The Thoracotomy was cancelled due to High airway pressures. bronchoscopy was done. Still Mild hemoptysis. Need to get Biopsy done. D/W Dr Anselmo Julio. Will go for CT needle biopsy Off O2 . C/O chest pains. CXR is stable Objective Vital Signs Date Time Temp Pulse Resp B/P (MAP) Pulse Ox O2 Delivery O2 Flow Rate FiO2 03/15/18 08:07 97.9 87 19 123/58 (79) 93 03/15/18 04:00 97.5 92 18 105/60 (75) 95 03/15/18 00:00 97.6 94 18 116/64 (81) 95 03/14/18 20:15 93 21 03/14/18 20:00 Room Air 03/14/18 20:00 97.7 94 17 113/59 (77) 94 03/14/18 16:04 98.5 107 22 141/60 (87) 95 03/14/18 13:24 Room Air I/O 03/14/18 03/14/18 03/14/18 03/15/18 03/15/18 03/15/18 07:00 15:00 23:00 07:00 15:00 23:00 Intake Total 100 ml 525 ml 1025 ml 400 ml Output Total 1000 ml Balance 100 ml 525 ml 25 ml 400 ml Intake Oral 100 ml 400 ml IV Total 525 ml 1025 ml Output Urine Total 1000 ml # Voids 4 3 Result Diagram: 03/14/18199903/15/18 0630 Objective Remarks GENERAL: This is a very obese, middle-aged man who is alert. There is no peripheral edema. No lymphadenopathy. SKIN: Turgor was good. HEENT: Head is normocephalic. Pupils are reactive and equal. Throat was clear. Nasal mucosa clear. NECK: Supple, no bruits. No lymphadenopathy or thyromegaly. CHEST: Decreased excursions with occasional wheezes throughout both lung ascencio.No crackles . HEART: The heart sounds are regular S1 and S2. No murmur. No S3. ABDOMEN: Obese and protuberant without masses. No organomegaly or tenderness. Bowel sounds are active. EXTREMITIES: Decreased peripheral pulses. Reflexes are 1+ with no gross motor deficits. No edema. NEUROLOGIC: The patient is alert, oriented, and cooperative. SKIN: No lesions. Assessment and Plan Assessment and Plan IMPRESSION: 1. Bilateral nodular pulmonary infiltrates, etiology undetermined. 2. Probable underlying chronic obstructive pulmonary disease and interstitial lung disease. 3. History of kidney stones. 4. Obstructive sleep apnea syndrome. 5. Hypertension. Plan: 1. Will get CT Guided needle biopsy 2. Continue antibiotics. 3. Nebs qid , Duoneb 4. O2 PRN 2 L 5. NPO today 6. ANCA,Anti GBM antibodies and RA factor 7. CXR in am Brittany Richardson MD March 15, 2018 13:00
[2018-03-15] MEDS ORDERED: fentaNYL CITRATE 250 MCG/5 ML AMP ONE (15:17)
[2018-03-15] MEDS ORDERED: MIDAZOLAM HCL 2 MG/2 ML VIAL ONE (15:34)
[2018-03-15] MEDS: AZITHROMYCIN INJ 500 MG in SODIUM CHLOR 0.9% 250 ML INJ 250 ML IV SCH (17:00)
[2018-03-15] MEDS: VANCOMYCIN INJ 1,750 MG in SODIUM CHLORID 0.9% 500 ML INJ 500 ML IV SCH (17:33)
--- NOTE | 2018-03-15 18:02 | HHI.PR ---
Subjective Remarks Resting comfortably in bed No event overnight Denied chest and or short of breath No fever or chills Going for CT-guided biopsy of the chest nodule Objective Vitals Vital Signs Date Time Temp Pulse Resp B/P (MAP) Pulse Ox O2 Delivery O2 Flow Rate FiO2 03/15/18 17:51 92 21 03/15/18 16:50 72 20 108/54 (72) 92 03/15/18 16:35 97.3 81 18 108/71 (83) 94 03/15/18 12:07 98.0 80 19 118/62 (80) 94 03/15/18 09:00 Room Air 03/15/18 08:07 97.9 87 19 123/58 (79) 93 03/15/18 04:00 97.5 92 18 105/60 (75) 95 03/15/18 00:00 97.6 94 18 116/64 (81) 95 03/14/18 20:15 93 21 03/14/18 20:00 Room Air 03/14/18 20:00 97.7 94 17 113/59 (77) 94 I/O 03/14/18 03/14/18 03/14/18 03/15/18 03/15/18 03/15/18 07:00 15:00 23:00 07:00 15:00 23:00 Intake Total 100 ml 525 ml 1025 ml 400 ml Output Total 1000 ml Balance 100 ml 525 ml 25 ml 400 ml Intake Oral 100 ml 400 ml IV Total 525 ml 1025 ml Output Urine Total 1000 ml # Voids 4 3 Result Diagram: 03/14/18199903/15/18 0630 Objective Remarks GENERAL: This is a well-nourished, morbidly obese well-developed patient, in no apparent distress. NEUROLOGICAL: Awake and alert. Moves all extremity. Normal speech.no focal neurological deficit A/P Problem List: (1) Pulmonary nodules/lesions, multiple ICD Code: R91.8 - Other nonspecific abnormal finding of lung field Assessment and Plan The patient was admitted to [facility] in [place] after a 2 week period of cough with hemoptysis after being referred by his primary care physician following an abnormal office chest x-ray. The patient presented to the emergency room on 03/01/2018. He was found to have extensive multilobular nodular scattered densities with surrounding edema on CT of chest with contrast. These were thought to represent areas of pneumonia versus metastatic deposits versus early abscesses. He had an extensive workup including Gram stain and cultures, upper respiratory bacterial and viral panel by PCR, Streptococcus pneumonia, and Legionella pneumonia urine antigen, mycoplasma pneumonia and others with no remarkable testing outcomes. He had a nostril culture for MRSA that did come back positive. The patient was deemed to be high risk for bronchoscopy due to his significant morbid obesity with a BMI of 50 and he declined intubation if required. CT guided right lung biopsy preliminarily negative per hospitalist progress note on 03/08. He was accepted in transfer by Dr. Nunes at [facility] for possible open lung biopsy. Appreciate pulmonology and CVS consult plan for VATS,Failed attempt to do VATS biopsy, they were not able to ventilate patient, he had a bronchoscopy with some aspiration specimen, pulmonology following discussed with Dr. bedner 03/15: Status post bronchoscopy on 03/14, and CT-guided biopsy on 03/15, pulmonology following as well as oncology A/P: Extensive multilobular reticulonodular scattered densities with surrounding edema on CT of chest with contrast at [facility]. These were thought to represent areas of pneumonia versus metastatic deposits (preliminary right lung biopsy negative for malignancy) versus early abscesses - consult CTS for possible open lung biopsy - appreciate assistance - Consult pulmonology - appreciate assistance - continue antibiotics for pneumonia: IV vancomycin and levaquin - continue duonebs q4h prn sob/wheezing COPD exacerbation - supplemental oxygen as needed - duonebs - continue IV solumedrol Hypertension - Continue hydralazine as needed and routine lisinopril - monitor trends in bp and adjust treatments as indicated Benign prostatic hypertrophy - Continue terra Zosyn Chronic back pain - Continue as needed Percocet 10/325 mg 2 tabs every 6 hours as needed Steroid-induced hyperglycemia - Continue Levemir - Accu-Cheks before meals and at bedtime with low-dose NovoLog sliding scale coverage - Hypoglycemia protocol - Monitor trends and blood glucose readings and adjust treatments as indicated Peripheral edema -Continue Lasix and chlorthalidone as previously ordered -Monitor I&O Tobacco abuse -Counseled regarding cessation -Nicotine patch Morbid obesity - will need to work on weight loss DVT prophylaxis -Lovenox 40 mg IV subcu every 24 hours Discharge Planning No plan on discharging at this point Janneth Porter MD March 15, 2018 18:02
--- NOTE | 2018-03-15 18:37 | RADRPT ---
EXAM DATE/TIME: 03/15/2018 18:03 [facility] COMPARISON: CT THORAX W/O CONTRAST, March 14, 2018, 15:35. INDICATIONS : Post lung biopsy. MEDICAL HISTORY : None. SURGICAL HISTORY : None. ENCOUNTER: Initial ACUITY: 1 day PAIN SCORE: 0/10 LOCATION: Right chest FINDINGS: A single frontal expiratory view of the chest was performed. There is patchy increased density seen throughout the lungs being more prominent on the right. No evidence of pneumothorax. Mediastinal st ructures are in the midline. The cardio-mediastinal contours and bronchopulmonary markings are unremarkable for an expiratory exam . Osseous structures are intact. There is a PICC line in place from the right arm. CONCLUSION: 1. No pneumothorax seen. 2. Bilateral patchy areas of consolidation seen throughout both lungs. Aly Cantu MD on March 15, 2018 at 18:33 Board Certified Radiologist. This report was verified electronically.
[2018-03-15] MEDS ORDERED: LIDOCAINE 1%/EPINEPHrine 1:100,000 SOLN 20 ML VIAL OTHER ONE (19:05)
[2018-03-15] MEDS ORDERED: LIDOCAINE HCL 1% 20 ML VIAL SQ ONE (19:55)
[2018-03-15] MEDS: TERAZOSIN HCL 5 MG CAP PO SCH (21:00)
[2018-03-15] MEDS: INSULIN DETEMIR 100 UNITS/ML VIAL SQ SCH (23:19)
[2018-03-16] VITALS (9 sets, daily range): BP systolic 103–130; BP diastolic 53–80; PULSE 76–100; RESP 15–20; TEMP 97.7–98.9; O2SAT 93–98
[2018-03-16] MEDS: oxyCODONE/ACETAMINOPHEN 10 MG/325 MG TAB PO PRN ×3 (05:40→18:54)
[2018-03-16] MEDS: VANCOMYCIN INJ 1,750 MG in SODIUM CHLORID 0.9% 500 ML INJ 500 ML IV SCH (06:21)
--- NOTE | 2018-03-16 07:39 | RADRPT ---
EXAM DATE/TIME: 03/15/2018 15:23 [facility] COMPARISON: CT THORAX W/O CONTRAST, March 14, 2018, 15:35. CHEST EXPIRATION ONLY, March 15, 2018, 18:03. INDICATIONS : Imaging lesions for attempted biopsy RADIATION DOSE: 37.63 CTDIvol (mGy) MEDICAL HISTORY : Chronic obstructive pulmonary disease. Hypertension. Renal calculi. SURGICAL HISTORY : None. ENCOUNTER: Initial ACUITY: 1 day PAIN SCALE: 0/10 LOCATION: chest TECHNIQUE: Volumetric scanning of the chest was performed. Using automated exposure control and adjustment of t he mA and/or kV according to patient size, radiation dose was kept as low as reasonably achievable to obtain optimal diagnostic quality images. DICOM format image data is available electronically for r eview and comparison. Follow-up recommendations for detected pulmonary nodules are based at a minimum on nodule size and pa tient risk factors according to Fleischner Society Guidelines. FINDINGS: Patient was placed supine on the CT table for attempted lung mass biopsy. CT examination of the chest was performed again demonstrating multiple hepatic masses with groundglass surrounding halo similar to recent CT exam. A subpleural mass in the right upper lobe was targeted. Skin overlying the region was prepped and draped in usual sterile fashion. 1%-solution was injected for local anesthesia. Multi ple attempts to advance a 19 gauge guide needle into the mass were unsuccessful due to patient's inab ility to reproduce breath holds and significant diaphragmatic excursion. Patient has a very tenuous a irway with significant challenges for mechanical ventilation due to morbid obesity. This limited our ability to progressively sedate the patient and potentially improve diaphragmatic excursion. Followin g several attempts, decision was made to terminate the procedure with possible reattempt under MAC se dation. Followup CT examination demonstrates no evidence for pneumothorax or other complication. A chest x-ra y will be obtained. CONCLUSION: 1. Attempted CT-guided percutaneous biopsy of right upper lobe mass was unsuccessful due to the patie nt's inability to reproduce breath holds and significant diaphragmatic excursion, as above. Will disc uss possibility of repeat biopsy attempt with anesthesiology under MAC sedation. Kimo Mccoy MD on March 16, 2018 at 7:31 Board Certified Radiologist. This report was verified electronically.
[2018-03-16] MEDS: INSULIN ASPART SUPPLEMENTAL SCALE SQ SCH ×4 (08:00→21:22)
[2018-03-16] MEDS: ENOXAPARIN SODIUM 40 MG/0.4 ML SYRINGE SQ SCH (08:33)
[2018-03-16] MEDS: SODIUM CHLORIDE 0.9% FLUSH 10 ML FLUSH IVF SCH (08:37)
[2018-03-16] MEDS: SODIUM CHLORIDE 0.9% FLUSH 10 ML FLUSH IV FLUSH SCH ×2 (08:37→21:09)
[2018-03-16] MEDS: LISINOPRIL 20 MG TAB PO SCH ×2 (08:37→20:31)
[2018-03-16] MEDS: FUROSEMIDE 20 MG TAB PO SCH (08:38)
[2018-03-16] MEDS: CHLORTHALIDONE 50 MG TAB PO SCH (08:38)
[2018-03-16] MEDS: NICOTINE 21 MG/24 HR PATCH T-DERMAL SCH (08:39)
[2018-03-16] MEDS: REMOVE OLD PATCH T-DERMAL SCH (08:39)
--- NOTE | 2018-03-16 12:23 | HHI.IDPN ---
Note Infectious Disease Note Patient is sitting upright bedside recliner. He states that he feels a heavy pressure in his chest on the right side. Still has cough. States that he coughs up the blood when he is moving around showering. Afebrile. He denies chills, sweats, nausea, vomiting, back pain. Attempts at needle aspiration was not successful yesterday. Chest x-ray has bilateral patchy infiltrations in both lungs. The patient presented to [facility] with hemoptysis and shortness of breath on 02/27/2018. Cultures at [facility] were negative including sputum and blood cultures. Culture of the nares was positive for MRSA. PAST MEDICAL HISTORY: Chronic tobacco abuse, obstructive sleep apnea recently diagnosed, degenerative joint disease, morbid obesity, nephrolithiasis. PAST SURGICAL HISTORY: History of abdominal aortic aneurysm repair in 2015, history of left knee replacement approximately 20 years ago, history of left breast mass excision, tonsillectomy, septoplasty, lumbar spine surgery. ALLERGIES: ADHESIVES. MEDICATIONS: Current Medications Medications (Trade) Dose Ordered Sig/Nick Route PRN Reason Start Time Stop Time Status Last Admin Dose Admin Sodium Chloride (NS Flush) 2 ml UNSCH PRN IV FLUSH FLUSH AFTER USING IV ACCESS 03/09/18 23:30 Sodium Chloride (NS Flush) 2 ml BID IV FLUSH 03/10/18 09:00 03/16/18 08:37 Acetaminophen (Tylenol) 650 mg Q4H PRN PO TEMP > 100.4 03/09/18 23:30 Magnesium Hydroxide (Milk Of Magnvijay Liq) 30 ml Q12H PRN PO Mild constipation 03/09/18 23:30 Sennosides (Senokot) 17.2 mg Q12H PRN PO Moderate constipation 03/09/18 23:30 Bisacodyl (Dulcolax Supp) 10 mg DAILY PRN RECTAL SEVERE CONSITIPATION 03/09/18 23:30 Enoxaparin Sodium (Lovenox Inj) 40 mg DAILY SQ 03/10/18 09:00 03/12/18 08:59 Furosemide (Lasix) 20 mg DAILY PO 03/10/18 09:00 03/16/18 08:38 Hydralazine HCl (Apresoline) 25 mg Q6HR PRN PO SBP>160, DBP>90 03/10/18 00:30 Insulin Detemir (Levemir Inj) 10 units HS SQ 03/10/18 00:30 03/15/18 23:19 Albuterol/ Ipratropium (Duoneb Neb) 1 ampule Q4HR NEB PRN NEB SOB/WHEEZING 03/10/18 00:45 Lisinopril (Prinivil) 20 mg BID PO 03/10/18 00:30 03/16/18 08:37 Terazosin HCl (Hytrin) 5 mg HS PO 03/10/18 00:30 03/14/18 23:11 Pharmacy Profile Note 0 ml @ 0 mls/hr UNSCH OTHER 03/10/18 00:30 Sodium Chloride (NS Flush) DAILY IVF 03/10/18 09:00 03/16/18 08:37 Heparin Sodium (Porcine) (Heparin Central Flush) DAILY IV FLUSH 03/10/18 09:00 03/14/18 09:11 Sodium Chloride (NS Flush) UNSCH PRN IVF SEE PROTOCOL 03/10/18 00:45 Heparin Sodium (Porcine) (Heparin Central Flush) UNSCH PRN IV FLUSH SEE PROTOCOL 03/10/18 00:45 03/11/18 21:32 Sodium Chloride (NS Flush) UNSCH PRN IVF SEE PROTOCOL 03/10/18 00:45 Nicotine (Habitrol 21 Mg Patch.24 Hr) 1 patch DAILY T-DERMAL 03/10/18 09:00 03/16/18 08:39 Miscellaneous Information 1 DAILY T-DERMAL 03/11/18 09:00 03/16/18 08:39 Chlorthalidone (Hygroton) 25 mg DAILY PO 03/10/18 09:00 03/16/18 08:38 Dextrose (D50w (Vial) Inj) 50 ml UNSCH PRN IV PUSH HYPOGLYCEMIA-SEE COMMENTS 03/10/18 00:45 Glucagon (Glucagon Inj) 1 mg UNSCH PRN OTHER HYPOGLYCEMIA-SEE COMMENTS 03/10/18 00:45 Insulin Aspart (NovoLOG SUPPLEMENTAL SCALE) 1 ACHS SLIDING SCALE SQ 03/10/18 08:00 03/15/18 23:19 Miscellaneous (Pill Splitter) 1 ea UNSCH PRN OTHER SEE LABEL COMMENTS 03/10/18 00:45 Oxycodone/ Acetaminophen (Percocet 10-325 Mg) 2 tab Q6H PRN PO PAIN SCALE 1 TO 10 03/10/18 06:30 03/16/18 11:20 Cefazolin Sodium 500 mg/Sodium Chloride 505 ml @ 0 mls/hr [employer] IRRIGATION 03/10/18 14:30 03/17/18 14:29 Cefazolin Sodium 3000 mg/Sodium Chloride 130 ml @ 200 mls/hr [employer] IV 03/10/18 14:30 03/17/18 14:29 Chlorhexidine Gluconate (Hibiclens 4% Top Soln) 1 applic [employer] TOPICAL 03/10/18 14:30 03/17/18 14:29 Levofloxacin/ Dextrose 150 ml @ 100 mls/hr Q48H IV 03/15/18 09:00 Vancomycin HCl 1750 mg/Sodium Chloride 517.5 ml @ 257.5 mls/ hr Q12H IV 03/15/18 18:00 03/16/18 06:21 Azithromycin 500 mg/Sodium Chloride 250 ml @ 250 mls/hr Q24H IV 03/15/18 17:00 Miscellaneous Information ([facility] Ordered Lab Info) SPECIFIC LAB TO BE DRAWN:VANCOMYCIN TROUGH DATE TO... ONCE ONCE .XX 03/17/18 05:45 03/17/18 05:46 SOCIAL HISTORY: The patient is . Smokes 2 packs of cigarettes a day. Denies alcohol use. Denies illicit drug use. He works for a company making [employer]. He reports that he was able to do his usual work activity prior to feeling sick with onset of shortness of breath 2 weeks before he presented to [facility] on 02/27/2018. Objective: Vital Signs Date Time Temp Pulse Resp B/P (MAP) Pulse Ox O2 Delivery O2 Flow Rate FiO2 03/16/18 12:00 98.2 87 15 114/57 (76) 94 03/16/18 09:26 Room Air 03/16/18 08:40 93 21 03/16/18 08:00 97.7 80 16 103/54 (70) 93 03/16/18 04:00 98.7 100 20 115/80 (92) 95 03/16/18 00:00 98.5 100 20 109/59 (76) 95 03/15/18 20:00 98.1 106 18 98/59 (72) 93 03/15/18 20:00 Room Air 03/15/18 17:51 92 21 03/15/18 16:50 72 20 108/54 (72) 92 03/15/18 16:35 97.3 81 18 108/71 (83) 94 03/15/18 16:07 98.2 86 18 122/64 (83) 96 Laboratory Tests Test 03/14/18 20:00 White Blood Count 22.2 TH/MM3 Red Blood Count 3.96 MIL/MM3 Hemoglobin 11.7 GM/DL Hematocrit 35.3 % Mean Corpuscular Volume 89.2 FL Mean Corpuscular Hemoglobin 29.5 PG Mean Corpuscular Hemoglobin Concent 33.0 % Red Cell Distribution Width 16.5 % Platelet Count 249 TH/MM3 Mean Platelet Volume 8.1 FL Neutrophils (%) (Auto) 83.6 % Lymphocytes (%) (Auto) 9.1 % Monocytes (%) (Auto) 7.0 % Eosinophils (%) (Auto) 0.1 % Basophils (%) (Auto) 0.2 % Neutrophils # (Auto) 18.6 TH/MM3 Lymphocytes # (Auto) 2.0 TH/MM3 Monocytes # (Auto) 1.6 TH/MM3 Eosinophils # (Auto) 0.0 TH/MM3 Basophils # (Auto) 0.0 TH/MM3 CBC Comment AUTO DIFF Differential Comment AUTO DIFF CONFIRMED Platelet Estimate NORMAL Platelet Morphology Comment NORMAL Erythrocyte Sedimentation Rate 15 mm/hr Laboratory Tests Test 03/15/18 06:30 Creatinine 0.80 MG/DL Estimat Glomerular Filtration Rate 99 ML/MIN Imaging: Chest X-Ray 03/15/18 1800 Signed Impressions: Service Date/Time: Thursday, March 15, 2018 18:03 - CONCLUSION: 1. No pneumothorax seen. 2. Bilateral patchy areas of consolidation seen throughout both lungs. Aly Cantu MD Chest CT 03/15/18 0936 Signed Impressions: Service Date/Time: Thursday, March 15, 2018 15:23 - CONCLUSION: 1. Attempted CT-guided percutaneous biopsy of right upper lobe mass was unsuccessful due to the patient's inability to reproduce breath holds and significant diaphragmatic excursion, as above. Will discuss possibility of repeat biopsy attempt with anesthesiology under MAC sedation. Kimo Mccoy MD Chest X-Ray 03/13/18 0000 Signed Impressions: Service Date/Time: Tuesday, March 13, 2018 09:03 - CONCLUSION: Left suprahilar and minimal bibasilar areas of atelectasis or consolidation. Aly Cantu MD PHYSICAL EXAMINATION: GENERAL: Patient in no acute distress. Awake and alert. HEENT: Extraocular movements are grossly intact, pupils reactive to light. No icterus. No conjunctivae erythema. Oropharynx moist mucosa without lesions. NECK: Supple without adenopathy. LUNGS: Slight rhonchi at both lung ascencio. HEART: Regular S1 and S2. No murmurs. No rubs. No gallops. ABDOMEN: Obese. Bowel sounds present. Soft, nontender. EXTREMITIES: No clubbing or cyanosis. 1+ edema of the lower extremities at the dorsum of the feet and tibia. SKIN: No diffuse rash. No petechial lesions. NEUROLOGIC: No gross focal findings. PSYCHIATRIC: Calm and cooperative. IMPRESSION: Hemoptysis and dyspnea in a patient with lung infiltrates. Prior workup for infectious disease has been negative. Scattered densities with surrounding edema were noted on radiographic studies. Possible atypical pneumonia/pneumonitis. The patient also may have noninfectious cause of the lung infiltrates and hemoptysis. His white blood cell count is elevated, but this could also be associated with steroids being administered. The patient does not appear to be immunocompromised and therefore the infiltrates are less likely to be due to opportunistic bacteria but could be atypical pneumonia. MRSA positive nares testing. However I doubt this is related to this pulmonary Presentation. RECOMMENDATIONS: 1. Continue vancomycin. 2. Stop Levaquin 3. Continue azithromycin. 4. Begin micafungin for fungal coverage because the infiltrates does not appear to be improving. Monitor aspergillus titers ordered by pulmonary. 5. Send sputum for culture. Patient to be given a specimen cup to keep at bedside to obtain sputum sample. 6. Monitor clinical status. 7. Culture of any material aspirated from the lung via procedure. Brian Birch MD March 16, 2018 12:23
--- NOTE | 2018-03-16 12:52 | HHI.PR ---
Subjective Remarks Will go for CT guided needle Biopsy of lesion Still Mild hemoptysis. Off O2 . C/O chest pains. CXR is stable Objective Vital Signs Date Time Temp Pulse Resp B/P (MAP) Pulse Ox O2 Delivery O2 Flow Rate FiO2 03/16/18 12:00 98.2 87 15 114/57 (76) 94 03/16/18 09:26 Room Air 03/16/18 08:40 93 21 03/16/18 08:00 97.7 80 16 103/54 (70) 93 03/16/18 04:00 98.7 100 20 115/80 (92) 95 03/16/18 00:00 98.5 100 20 109/59 (76) 95 03/15/18 20:00 98.1 106 18 98/59 (72) 93 03/15/18 20:00 Room Air 03/15/18 17:51 92 21 03/15/18 16:50 72 20 108/54 (72) 92 03/15/18 16:35 97.3 81 18 108/71 (83) 94 03/15/18 16:07 98.2 86 18 122/64 (83) 96 I/O 03/15/18 03/15/18 03/15/18 03/16/18 03/16/18 03/16/18 07:00 15:00 23:00 07:00 15:00 23:00 Intake Total 400 ml 0 ml 480 ml Output Total 1200 ml Balance 400 ml -1200 ml 480 ml Intake Oral 400 ml 0 ml 480 ml Output Urine Total 1200 ml # Voids 3 2 # Bowel Movements 1 Result Diagram: 03/14/18199903/15/18 0630 Objective Remarks GENERAL: This is a very obese, middle-aged man who is alert. There is no peripheral edema. No lymphadenopathy. SKIN: Turgor was good. HEENT: Head is normocephalic. Pupils are reactive and equal. Throat was clear. Nasal mucosa clear. NECK: Supple, no bruits. No lymphadenopathy or thyromegaly. CHEST: Decreased excursions with occasional wheezes over both lung ascencio.No crackles . HEART: The heart sounds are regular S1 and S2. No murmur. No S3. ABDOMEN: Obese and protuberant without masses. No organomegaly or tenderness. Bowel sounds are active. EXTREMITIES: Decreased peripheral pulses. Reflexes are 1+ with no gross motor deficits. No edema. NEUROLOGIC: The patient is alert, oriented, and cooperative. SKIN: No lesions. Assessment and Plan Assessment and Plan IMPRESSION: 1. Bilateral nodular pulmonary infiltrates, etiology undetermined. 2. Probable underlying chronic obstructive pulmonary disease and interstitial lung disease. 3. History of kidney stones. 4. Obstructive sleep apnea syndrome. 5. Hypertension. Plan: 1. Will get CT Guided needle biopsy Of left lung lesion today 2. Continue antibiotics. 3. Nebs qid , Duoneb 4. O2 PRN 2 L 5. NPO today 6. IS q3h. bedside 7. CXR in Brittany Richardson MD March 16, 2018 12:52
--- NOTE | 2018-03-16 15:32 | PD.RAD ---
Post CT Procedure Prog Note Pre Procedure Diagnosis: (1) Pulmonary nodules/lesions, multiple Post Procedure Diagnosis: (1) Pulmonary nodules/lesions, multiple Procedure Date: March 16, 2018 Supervising Radiologist: Kimo Mccoy Anesthesia: General Plan of Activity Patient to Unit: PACU Patient Condition: Good See PACS Report for procedural detail/treatment Kimo Mccoy MD March 16, 2018 15:32
--- NOTE | 2018-03-16 16:02 | HHI.PR ---
Subjective Remarks Patient is frustrated because he was NPO again today for procedure. We discussed the reasons why procedure was not successful yesterday. He now understand he needs sedation and agreeable to that. Objective Vitals Vital Signs Date Time Temp Pulse Resp B/P (MAP) Pulse Ox O2 Delivery O2 Flow Rate FiO2 03/16/18 12:00 98.2 87 15 114/57 (76) 94 03/16/18 09:26 Room Air 03/16/18 08:40 93 21 03/16/18 08:00 97.7 80 16 103/54 (70) 93 03/16/18 04:00 98.7 100 20 115/80 (92) 95 03/16/18 00:00 98.5 100 20 109/59 (76) 95 03/15/18 20:00 98.1 106 18 98/59 (72) 93 03/15/18 20:00 Room Air 03/15/18 17:51 92 21 03/15/18 16:50 72 20 108/54 (72) 92 03/15/18 16:35 97.3 81 18 108/71 (83) 94 03/15/18 16:07 98.2 86 18 122/64 (83) 96 I/O 03/15/18 03/15/18 03/15/18 03/16/18 03/16/18 03/16/18 07:00 15:00 23:00 07:00 15:00 23:00 Intake Total 400 ml 0 ml 480 ml Output Total 1200 ml Balance 400 ml -1200 ml 480 ml Intake Oral 400 ml 0 ml 480 ml Output Urine Total 1200 ml # Voids 3 2 # Bowel Movements 1 Result Diagram: 03/14/18199903/15/18 0630 Objective Remarks GENERAL: This is a well-nourished, well-developed patient, in no apparent distress. CARDIOVASCULAR: Regular rate and rhythm without murmurs, gallops, or rubs. RESPIRATORY: Clear to auscultation. Breath sounds equal bilaterally. No wheezes , rales, or rhonchi. GASTROINTESTINAL: Abdomen soft, non-tender, nondistended. Normal active bowel sounds MUSCULOSKELETAL: Extremities without clubbing, cyanosis, or edema. NEURO: Alert & Oriented x4 to person, place, time, situation. Moves all ext x4 A/P Problem List: (1) Pulmonary nodules/lesions, multiple ICD Code: R91.8 - Other nonspecific abnormal finding of lung field Assessment and Plan The patient was admitted to [facility] in [place] after a 2 week period of cough with hemoptysis after being referred by his primary care physician following an abnormal office chest x-ray. The patient presented to the emergency room on 03/01/2018. He was found to have extensive multilobular nodular scattered densities with surrounding edema on CT of chest with contrast. These were thought to represent areas of pneumonia versus metastatic deposits versus early abscesses. He had an extensive workup including Gram stain and cultures, upper respiratory bacterial and viral panel by PCR, Streptococcus pneumonia, and Legionella pneumonia urine antigen, mycoplasma pneumonia and others with no remarkable testing outcomes. He had a nostril culture for MRSA that did come back positive. The patient was deemed to be high risk for bronchoscopy due to his significant morbid obesity with a BMI of 50 and he declined intubation if required. CT guided right lung biopsy preliminarily negative per hospitalist progress note on 03/08. He was accepted in transfer by Dr. Nunes at [facility] for possible open lung biopsy. Extensive multilobular reticulonodular scattered densities with surrounding edema on CT of chest with contrast at [facility]. These were thought to represent areas of pneumonia versus metastatic deposits (preliminary right lung biopsy negative for malignancy) versus early abscesses - Appreciate pulmonology and [facility] consult plan for VATS,Failed attempt to do VATS biopsy, they were not able to ventilate patient, he had a bronchoscopy with some aspiration specimen, pulmonology following. Plan for repeat CT guided biopsy today. This was attempted yesterday. However the patient could not stay still. He will require sedation today for the procedure. - continue antibiotics for pneumonia: IV vancomycin and levaquin - continue duonebs q4h prn sob/wheezing COPD exacerbation - Resolved. - supplemental oxygen as needed - duonebs Hypertension - Continue hydralazine as needed and routine lisinopril - monitor trends in bp and adjust treatments as indicated Benign prostatic hypertrophy - Continue terra Zosyn Chronic back pain - Continue as needed Percocet 10/325 mg 2 tabs every 6 hours as needed Steroid-induced hyperglycemia - Continue Levemir - Accu-Cheks before meals and at bedtime with low-dose NovoLog sliding scale coverage - Hypoglycemia protocol - Monitor trends and blood glucose readings and adjust treatments as indicated Peripheral edema -Continue Lasix and chlorthalidone as previously ordered -Monitor I&O Tobacco abuse -Counseled regarding cessation -Nicotine patch Morbid obesity - will need to work on weight loss DVT prophylaxis -Lovenox 40 mg IV subcu every 24 hours Syed Orellana MD March 16, 2018 16:02
[2018-03-16] MEDS ORDERED: MORPHINE SULFATE 4 MG/ML INJ ONE (16:26)
[2018-03-16] MEDS ORDERED: *morphine SULFATE 8 MG/ML PERIprocedure ONLY ONE (16:26)
--- NOTE | 2018-03-16 16:36 | RADRPT ---
EXAM DATE/TIME: 03/16/2018 15:35 [facility] COMPARISON: CHEST EXPIRATION ONLY, March 15, 2018, 18:03. INDICATIONS : Post lung biospy MEDICAL HISTORY : Chronic obstructive pulmonary disease. Hypertension. Renal calculi. SURGICAL HISTORY : None. ENCOUNTER: Subsequent ACUITY: 2 days PAIN SCORE: 0/10 LOCATION: chest FINDINGS: There is a left apical pneumothorax with about 2.2 cm separation of apical pleural layers. No evidenc e of tension or shift. Diffuse bilateral parenchymal lung opacity is exacerbated by expiratory techni que. The cardiac contours are grossly stable. Right arm PICC line remains in place. CONCLUSION: Left apical pneumothorax. A follow up film will again be obtained in an hour Aly Sanchez MD on March 16, 2018 at 16:31 Board Certified Radiologist. This report was verified electronically.
--- NOTE | 2018-03-16 16:44 | RADRPT ---
EXAM DATE/TIME: 03/16/2018 14:38 [facility] COMPARISON: CHEST EXPIRATION ONLY, March 16, 2018, 15:35. INDICATIONS : Left lung mass BIOPSY SITE: Left lung DEVICE(S): 1.) 20 gauge Temno core biopsy needle 2.) 19 gauge introducer MEDICAL HISTORY : Chronic obstructive pulmonary disease. Hypertension. SURGICAL HISTORY : ENCOUNTER: Initial ACUITY: 1 day PAIN SCORE: Non-responsive LOCATION: Left chest A total of five core specimen(s) were obtained and sent to the laboratory for pathologic evaluation. PROCEDURE: 1. CT guided lung biopsy. Prior to the procedure informed consent was obtained. Any appropriate prior imaging studies were rev iewed. Using automated exposure control and adjustment of the mA and/or kV according to patient size, radiation dose was kept as low as reasonably achievable to obtain optimal diagnostic quality images. DICOM format image data is available electronically for review and comparison. The site was prepped in a sterile fashion. Full sterile technique was used, including cap, mask, charles rile gloves and gown and a large sterile sheet. Hand hygiene and 2% chlorhexidine and/or betadine/al cohol prep was utilized per protocol for cutaneous antisepsis. The skin and subcutaneous tissues wer e infiltrated with local anesthetic solution. With CT guidance the previously identified target was localized. Biopsy was performed using the presc ribed needle as above. Slide preparations were reviewed with cytopathology tech demonstrating adequa te tissue. Needle was then withdrawn. Adequate hemostasis was obtained with compression at the punct ure site. Follow-up CT scan reveals a minor inferior pneumothorax. Followup chest radiographs will be performed . Conscious sedation was performed with the prescribed dosages and duration as above in the presence of an independent trained radiology nurse to assist in the monitoring of the patient. EKG and oximetry remained stable throughout the procedure. The patient tolerated the procedure well and there were no complications. The patient was sent to Radiology Outpatient Unit in stable condition. CONCLUSION: Uncomplicated CT guided lung mass biopsy. Kimo Mccoy MD on March 16, 2018 at 16:20 Board Certified Radiologist. This report was verified electronically.
[2018-03-16] MEDS ORDERED: PHENYLEPHRINE HCL 10 MG/ML VIAL ONE (16:45)
[2018-03-16] MEDS: AZITHROMYCIN INJ 500 MG in SODIUM CHLOR 0.9% 250 ML INJ 250 ML IV SCH (17:00)
[2018-03-16] MEDS ORDERED: DO NOT ADM ANY ANTICOAGULANT DRUGS PRN (17:00)
--- NOTE | 2018-03-16 17:18 | RADRPT ---
EXAM DATE/TIME: 03/16/2018 16:57 [facility] COMPARISON: No previous studies available for comparison. INDICATIONS : Post left side lung biopsy. MEDICAL HISTORY : Chronic obstructive pulmonary disease. Hypertension. Renal calculi. SURGICAL HISTORY : None. ENCOUNTER: Subsequent ACUITY: 1 day PAIN SCORE: 2/10 LOCATION: Left chest FINDINGS: There has been interval increase in size of left pneumothorax with about 3.4 cm separation of the api mychal pleural layers on the current study. Aeration is otherwise grossly stable. Cardiomediastinal cont ours are stable. Right PICC line remains in place. CONCLUSION: Increasing left pneumothorax. Aly Sanchez MD on March 16, 2018 at 17:15 Board Certified Radiologist. This report was verified electronically.
[2018-03-16] MEDS ORDERED: *HYDROmorphone PF 0.5 MG/0.5 ML PERIprocedure ONLY ONE (17:38)
[2018-03-16] MEDS ORDERED: NOREPINEPHRINE 4 MG/D5W 250 ML IV PRN (17:45)
--- NOTE | 2018-03-16 19:21 | RADRPT ---
EXAM DATE/TIME: 03/16/2018 18:50 [facility] COMPARISON: CT NEEDLE BIOPSY LUNG, LEFT, March 16, 2018, 14:38. CHEST EXPIRATION ONLY, March 16, 2018, 16:57. INDICATIONS : Post chest tube placement MEDICAL HISTORY : Chronic obstructive pulmonary disease. Hypertension. Renal calculi. SURGICAL HISTORY : None. ENCOUNTER: Subsequent ACUITY: 1 day PAIN SCORE: 2/10 LOCATION: Left chest FINDINGS: A single frontal expiratory view of the chest was performed. Patchy bilateral pulmonary opacities. Sm all caliber left apical chest tube. No pneumothorax. The cardio-mediastinal contours and bronchopulmonary markings are unremarkable for an expiratory exam . Osseous structures are intact. CONCLUSION: 1. No pneumothorax. Savage Arora MD on March 16, 2018 at 19:18 Board Certified Radiologist. This report was verified electronically.
[2018-03-16] MEDS: TERAZOSIN HCL 5 MG CAP PO SCH (20:31)
[2018-03-16] MEDS: INSULIN DETEMIR 100 UNITS/ML VIAL SQ SCH (21:21)
[2018-03-17] VITALS (10 sets, daily range): BP systolic 113–139; BP diastolic 56–67; PULSE 80–97; RESP 12–19; TEMP 97.9–98.4; O2SAT 93–98
[2018-03-17] MEDS: oxyCODONE/ACETAMINOPHEN 10 MG/325 MG TAB PO PRN ×3 (00:51→20:50)
--- NOTE | 2018-03-17 03:42 | RADRPT ---
EXAM DATE/TIME: 03/17/2018 03:04 [facility] COMPARISON: CHEST EXPIRATION ONLY, March 16, 2018, 18:50. INDICATIONS : Pneumothorax MEDICAL HISTORY : Chronic obstructive pulmonary disease. Hypertension. Renal calculi. SURGICAL HISTORY : None. ENCOUNTER: Subsequent ACUITY: 4 - 6 days PAIN SCORE: Non-responsive. LOCATION: Bilateral chest FINDINGS: A single frontal expiratory view of the chest was performed. Bilateral pulmonary opacities. Small mychal iber left-sided chest tube without pneumothorax. No evidence of pneumothorax. Mediastinal structure s are in the midline. The cardio-mediastinal contours and bronchopulmonary markings are unremarkable for an expiratory exam . Osseous structures are intact. CONCLUSION: Bilateral patchy pulmonary opacities. No pneumothorax. Savage Arora MD on March 17, 2018 at 3:41 Board Certified Radiologist. This report was verified electronically.
[2018-03-17 04:03] LABS: CREATININE 1.48 MG/DL (0.60-1.30)
[2018-03-17 05:30] LABS: VANCOMYCIN TROUGH 9.3 MCG/ML (5.0-10.0)
[2018-03-17] MEDS ORDERED: PHARMACY ORDERED LAB ONE (05:45)
[2018-03-17] MEDS: VANCOMYCIN INJ 1,750 MG in SODIUM CHLORID 0.9% 500 ML INJ 500 ML IV SCH (05:45)
[2018-03-17] MEDS: INSULIN ASPART SUPPLEMENTAL SCALE SQ SCH ×4 (08:00→21:00)
[2018-03-17] MEDS: FUROSEMIDE 20 MG TAB PO SCH (09:00)
[2018-03-17] MEDS: NICOTINE 21 MG/24 HR PATCH T-DERMAL SCH (09:00)
[2018-03-17] MEDS: SODIUM CHLORIDE 0.9% FLUSH 10 ML FLUSH IV FLUSH SCH ×2 (09:00→22:41)
[2018-03-17] MEDS: SODIUM CHLORIDE 0.9% FLUSH 10 ML FLUSH IVF SCH (09:00)
[2018-03-17] MEDS: CHLORTHALIDONE 50 MG TAB PO SCH (09:00)
[2018-03-17] MEDS: LISINOPRIL 20 MG TAB PO SCH ×2 (09:00→20:50)
[2018-03-17] MEDS: ENOXAPARIN SODIUM 40 MG/0.4 ML SYRINGE SQ SCH (09:00)
[2018-03-17] MEDS: REMOVE OLD PATCH T-DERMAL SCH (09:00)
--- NOTE | 2018-03-17 09:36 | RADRPT ---
EXAM DATE/TIME: 03/16/2018 18:14 [facility] COMPARISON: CHEST EXPIRATION ONLY, March 17, 2018, 3:04. CHEST EXPIRATION ONLY, March 16, 2018, 18:50. INDICATIONS : Post CT guided biopsy of LEFT lung. Pneumothorax MEDICAL HISTORY : Hemoptysis, chest pain, pulmonary infiltrates-undetermined etiology, COPD, history kidney stones, sle ep apnea, hypertension. SURGICAL HISTORY : [id number], Lumbar spine, tonsillectomy septoplasty, bilateral knee surgeries ENCOUNTER: Initial ACUITY: 1 day PAIN SCORE: 4/10 Left chest FLUORO TIME: 4.6 minutes IMAGE SERIES: 1 PROCEDURE : 1. Fluoroscopically guided chest tube placement. 2. Conscious sedation with continuous EKG and oximetry monitoring. The risks, benefits and alternatives to the procedure were explained and verbal and written consent w as obtained. The site was prepped in sterile fashion. Full sterile technique was used, including ca p, mask, sterile gloves and gown and a large sterile sheet. Hand hygiene and 2% chlorhexidine and/or betadine/alcohol prep was utilized per protocol for cutaneous antisepsis. The skin and subcutaneous tissues were infiltrated with local anesthetic solution. With fluoroscopic guidance the chest was punctured between the first and second interspace and the pr escribed catheter was placed in the lung apex. Wall suction was applied. Post procedure images demon strate satisfactory position of the tube. The catheter was sutured in place and a Percu-Stay was wilson lied. Conscious sedation was performed with the prescribed dosages and duration as above in the presence of an independent trained radiology nurse to assist in the monitoring of the patient. EKG and oximetry remained stable throughout the procedure. The patient tolerated the procedure well and there were n o complications. The patient was sent to post anesthesia recovery in stable condition. CONCLUSION: Uncomplicated chest tube placement as above. Aly Sanchez MD on March 17, 2018 at 9:31 Board Certified Radiologist. This report was verified electronically.
--- NOTE | 2018-03-17 09:54 | HHI.PR ---
Subjective Remarks Patient states he is feeling great today. Denies any shortness of breath. States he is no longer having hemoptysis. Chest tube not draining anything. Repeat chest x-ray this morning negative for pneumothorax. Objective Vitals Vital Signs Date Time Temp Pulse Resp B/P (MAP) Pulse Ox O2 Delivery O2 Flow Rate FiO2 03/17/18 07:00 83 03/17/18 04:05 96 Nasal Cannula 4.00 03/17/18 04:00 98.4 87 12 113/67 (82) 94 03/17/18 00:00 84 17 115/56 (75) 97 03/16/18 22:00 82 03/16/18 20:00 98.5 82 20 130/69 (89) 98 03/16/18 20:00 76 03/16/18 19:00 Room Air 98 03/16/18 18:57 98.9 85 19 106/53 (70) 97 03/16/18 17:37 94 21 03/16/18 17:30 89 14 96/65 (75) 95 Nasal Cannula 4 03/16/18 17:15 91 16 95/46 (62) 94 Nasal Cannula 4 03/16/18 17:00 101 17 89/43 (58) 90 Nasal Cannula 4 03/16/18 16:45 87 15 64/40 (48) 91 Nasal Cannula 4 03/16/18 16:45 87 64/40 03/16/18 16:30 94 20 94/52 (66) 94 Simple Mask 10 03/16/18 16:12 97.0 101 22 74/42 (53) 94 Non-Rebreather 15 03/16/18 12:00 98.2 87 15 114/57 (76) 94 I/O 03/16/18 03/16/18 03/16/18 03/17/18 03/17/18 03/17/18 06:59 14:59 22:59 06:59 14:59 22:59 Intake Total 480 ml 1000 ml Balance 480 ml 1000 ml Intake Oral 480 ml 1000 ml # Voids 2 7 # Bowel Movements 0 Result Diagram: 03/14/18199903/17/18 0328 Objective Remarks GENERAL: This is a well-nourished, well-developed patient, in no apparent distress. CARDIOVASCULAR: Regular rate and rhythm without murmurs, gallops, or rubs. RESPIRATORY: Clear to auscultation. Breath sounds equal bilaterally. No wheezes , rales, or rhonchi. GASTROINTESTINAL: Abdomen soft, non-tender, nondistended. Normal active bowel sounds MUSCULOSKELETAL: Extremities without clubbing, cyanosis, or edema. NEURO: Alert & Oriented x4 to person, place, time, situation. Moves all ext x4 A/P Problem List: (1) Pulmonary nodules/lesions, multiple ICD Code: R91.8 - Other nonspecific abnormal finding of lung field Assessment and Plan The patient was admitted to [facility] in [place] after a 2 week period of cough with hemoptysis after being referred by his primary care physician following an abnormal office chest x-ray. The patient presented to the emergency room on 03/01/2018. He was found to have extensive multilobular nodular scattered densities with surrounding edema on CT of chest with contrast. These were thought to represent areas of pneumonia versus metastatic deposits versus early abscesses. He had an extensive workup including Gram stain and cultures, upper respiratory bacterial and viral panel by PCR, Streptococcus pneumonia, and Legionella pneumonia urine antigen, mycoplasma pneumonia and others with no remarkable testing outcomes. He had a nostril culture for MRSA that did come back positive. The patient was deemed to be high risk for bronchoscopy due to his significant morbid obesity with a BMI of 50 and he declined intubation if required. CT guided right lung biopsy preliminarily negative per hospitalist progress note on 03/08. He was accepted in transfer by Dr. Nunes at [facility] for possible open lung biopsy. Extensive multilobular reticulonodular scattered densities with surrounding edema on CT of chest with contrast at [facility]. These were thought to represent areas of pneumonia versus metastatic deposits (preliminary right lung biopsy negative for malignancy) versus early abscesses - Appreciate pulmonology and [facility] consult plan for VATS,Failed attempt to do VATS biopsy, they were not able to ventilate patient, he had a bronchoscopy with some aspiration specimen, pulmonology following. - continue antibiotics for pneumonia: IV vancomycin and levaquin - continue duonebs q4h prn sob/wheezing -Status post CT-guided biopsy. Chest tube currently in place due to pneumothorax post biopsy which has resolved. Further management of chest tube per IR. - Pathology pending COPD exacerbation - Resolved. - supplemental oxygen as needed - duonebs Hypertension - Continue hydralazine as needed and routine lisinopril - monitor trends in bp and adjust treatments as indicated Benign prostatic hypertrophy - Continue raulitoa Binu Chronic back pain - Continue as needed Percocet 10/325 mg 2 tabs every 6 hours as needed Steroid-induced hyperglycemia - Continue Levemir - Accu-Cheks before meals and at bedtime with low-dose NovoLog sliding scale coverage - Hypoglycemia protocol - Monitor trends and blood glucose readings and adjust treatments as indicated Peripheral edema -Continue Lasix and chlorthalidone as previously ordered -Monitor I&O Tobacco abuse -Counseled regarding cessation -Nicotine patch Morbid obesity - will need to work on weight loss DVT prophylaxis -Lovenox 40 mg IV subcu every 24 hours Discharge Planning Transfer to floor. Syed Orellana MD March 17, 2018 09:54
--- NOTE | 2018-03-17 11:47 | HHI.IDPN ---
Note Infectious Disease Note Patient underwent CT-guided lung biopsy yesterday by radiology. Pigtail chest tube catheter inserted into the left chest. Patient states that his breathing is easier. Cough without sputum production. Currently on room air. Saturation ranges from 88% to 91%. He denies chills, sweats, nausea, vomiting, back pain. Alert and awake. The patient presented to [facility] with hemoptysis and shortness of breath on 02/27/2018. Cultures at [facility] were negative including sputum and blood cultures. Culture of the nares was positive for MRSA. PAST MEDICAL HISTORY: Chronic tobacco abuse, obstructive sleep apnea recently diagnosed, degenerative joint disease, morbid obesity, nephrolithiasis. PAST SURGICAL HISTORY: History of abdominal aortic aneurysm repair in 2016, history of left knee replacement approximately 20 years ago, history of left breast mass excision, tonsillectomy, septoplasty, lumbar spine surgery. ALLERGIES: ADHESIVES. MEDICATIONS: Current Medications Medications (Trade) Dose Ordered Sig/Nick Route PRN Reason Start Time Stop Time Status Last Admin Dose Admin Sodium Chloride (NS Flush) 2 ml UNSCH PRN IV FLUSH FLUSH AFTER USING IV ACCESS 03/09/18 23:30 Sodium Chloride (NS Flush) 2 ml BID IV FLUSH 03/10/18 09:00 03/17/18 09:00 Acetaminophen (Tylenol) 650 mg Q4H PRN PO TEMP > 100.4 03/09/18 23:30 Magnesium Hydroxide (Milk Of Magnvijay Liq) 30 ml Q12H PRN PO Mild constipation 03/09/18 23:30 Sennosides (Senokot) 17.2 mg Q12H PRN PO Moderate constipation 03/09/18 23:30 Bisacodyl (Dulcolax Supp) 10 mg DAILY PRN RECTAL SEVERE CONSITIPATION 03/09/18 23:30 Enoxaparin Sodium (Lovenox Inj) 40 mg DAILY SQ 03/10/18 09:00 03/17/18 09:00 Furosemide (Lasix) 20 mg DAILY PO 03/10/18 09:00 03/16/18 08:38 Hydralazine HCl (Apresoline) 25 mg Q6HR PRN PO SBP>160, DBP>90 03/10/18 00:30 Insulin Detemir (Levemir Inj) 10 units HS SQ 03/10/18 00:30 03/16/18 21:21 Albuterol/ Ipratropium (Duoneb Neb) 1 ampule Q4HR NEB PRN NEB SOB/WHEEZING 03/10/18 00:45 Lisinopril (Prinivil) 20 mg BID PO 03/10/18 00:30 03/17/18 09:00 Terazosin HCl (Hytrin) 5 mg HS PO 03/10/18 00:30 03/14/18 23:11 Pharmacy Profile Note 0 ml @ 0 mls/hr UNSCH OTHER 03/10/18 00:30 Sodium Chloride (NS Flush) DAILY IVF 03/10/18 09:00 03/17/18 09:00 Heparin Sodium (Porcine) (Heparin Central Flush) DAILY IV FLUSH 03/10/18 09:00 03/17/18 09:00 Sodium Chloride (NS Flush) UNSCH PRN IVF SEE PROTOCOL 03/10/18 00:45 Heparin Sodium (Porcine) (Heparin Central Flush) UNSCH PRN IV FLUSH SEE PROTOCOL 03/10/18 00:45 03/11/18 21:32 Sodium Chloride (NS Flush) UNSCH PRN IVF SEE PROTOCOL 03/10/18 00:45 Nicotine (Habitrol 21 Mg Patch.24 Hr) 1 patch DAILY T-DERMAL 03/10/18 09:00 03/17/18 09:00 Miscellaneous Information 1 DAILY T-DERMAL 03/11/18 09:00 03/17/18 09:00 Chlorthalidone (Hygroton) 25 mg DAILY PO 03/10/18 09:00 03/16/18 08:38 Dextrose (D50w (Vial) Inj) 50 ml UNSCH PRN IV PUSH HYPOGLYCEMIA-SEE COMMENTS 03/10/18 00:45 Glucagon (Glucagon Inj) 1 mg UNSCH PRN OTHER HYPOGLYCEMIA-SEE COMMENTS 03/10/18 00:45 Insulin Aspart (NovoLOG SUPPLEMENTAL SCALE) 1 ACHS SLIDING SCALE SQ 03/10/18 08:00 03/16/18 21:22 Miscellaneous (Pill Splitter) 1 ea UNSCH PRN OTHER SEE LABEL COMMENTS 03/10/18 00:45 Oxycodone/ Acetaminophen (Percocet 10-325 Mg) 2 tab Q6H PRN PO PAIN SCALE 1 TO 10 03/10/18 06:30 03/17/18 07:21 Cefazolin Sodium 500 mg/Sodium Chloride 505 ml @ 0 mls/hr RECORD LABEL INTERN IRRIGATION 03/10/18 14:30 03/17/18 14:29 Cefazolin Sodium 3000 mg/Sodium Chloride 130 ml @ 200 mls/hr RECORD LABEL INTERN IV 03/10/18 14:30 03/17/18 14:29 Chlorhexidine Gluconate (Hibiclens 4% Top Soln) 1 applic RECORD LABEL INTERN TOPICAL 03/10/18 14:30 03/17/18 14:29 Vancomycin HCl 1750 mg/Sodium Chloride 517.5 ml @ 257.5 mls/ hr Q12H IV 03/15/18 18:00 Future Hold 03/17/18 05:45 Azithromycin 500 mg/Sodium Chloride 250 ml @ 250 mls/hr Q24H IV 03/15/18 17:00 Micafungin Sodium 100 mg/Sodium Chloride 100 ml @ 100 mls/hr Q24H IV 03/16/18 16:30 Miscellaneous Information ([facility] [place] ALL NURSING DEPARTME... UNSCH PRN .XX SEE LABEL COMMENTS 03/16/18 17:00 03/17/18 16:59 Norepinephrine Bitartrate 250 ml @ 7.5 mls/hr TITRATE PRN IV Maintain MAP > 65 mmHg 03/16/18 17:45 SOCIAL HISTORY: The patient is . Smokes 2 packs of cigarettes a day. Denies alcohol use. Denies illicit drug use. He works for a company making [employer]. He reports that he was able to do his usual work activity prior to feeling sick with onset of shortness of breath 2 weeks before he presented to [facility] on 02/27/2018. Objective: Vital Signs Date Time Temp Pulse Resp B/P (MAP) Pulse Ox O2 Delivery O2 Flow Rate FiO2 03/17/18 10:20 93 Nasal Cannula 4.00 03/17/18 08:21 18 03/17/18 07:00 83 03/17/18 04:05 96 Nasal Cannula 4.00 03/17/18 04:00 98.4 87 12 113/67 (82) 94 03/17/18 00:00 84 17 115/56 (75) 97 03/16/18 22:00 82 03/16/18 20:00 98.5 82 20 130/69 (89) 98 03/16/18 20:00 76 03/16/18 19:00 Room Air 98 03/16/18 18:57 98.9 85 19 106/53 (70) 97 03/16/18 17:37 94 21 03/16/18 17:30 89 14 96/65 (75) 95 Nasal Cannula 4 03/16/18 17:15 91 16 95/46 (62) 94 Nasal Cannula 4 03/16/18 17:00 101 17 89/43 (58) 90 Nasal Cannula 4 03/16/18 16:45 87 15 64/40 (48) 91 Nasal Cannula 4 03/16/18 16:45 87 64/40 03/16/18 16:30 94 20 94/52 (66) 94 Simple Mask 10 03/16/18 16:12 97.0 101 22 74/42 (53) 94 Non-Rebreather 15 03/16/18 12:00 98.2 87 15 114/57 (76) 94 Laboratory Tests Test 03/17/18 03:28 Creatinine 1.48 MG/DL Estimat Glomerular Filtration Rate 49 ML/MIN Microbiology Date/Time Source Procedure Growth Status 03/16/18 15:34 Wound Lung Fungal Smear - Final NO FUNGAL ELEMENTS SEEN. Resulted 03/16/18 15:34 Wound Lung Fungal Culture Pending Resulted 03/16/18 15:34 Wound Lung Acid Fast Stain Pending Received 03/16/18 15:34 Wound Lung Mycobacterial Culture Pending Received 03/16/18 15:34 Wound Lung Gram Stain - Final Resulted 03/16/18 15:34 Wound Lung Wound Culture Pending Resulted Imaging: Chest X-Ray 03/17/18 0000 Signed Impressions: Service Date/Time: Saturday, March 17, 2018 03:04 - CONCLUSION: Bilateral patchy pulmonary opacities. No pneumothorax. Savage Arora MD Chest X-Ray 03/16/18 1730 Signed Impressions: Service Date/Time: March 15:35 - CONCLUSION: Left apical pneumothorax. A follow up film will again be obtained in an hour Aly Sanchez MD Chest X-Ray 03/15/18 1800 Signed Impressions: Service Date/Time: Thursday, March 15, 2018 18:03 - CONCLUSION: 1. No pneumothorax seen. 2. Bilateral patchy areas of consolidation seen throughout both lungs. Aly Cantu MD Chest CT 03/15/18 0936 Signed Impressions: Service Date/Time: Thursday, March 15, 2018 15:23 - CONCLUSION: 1. Attempted CT-guided percutaneous biopsy of right upper lobe mass was unsuccessful due to the patient's inability to reproduce breath holds and significant diaphragmatic excursion, as above. Will discuss possibility of repeat biopsy attempt with anesthesiology under MAC sedation. Kimo Mccoy MD Chest X-Ray 03/13/18 0000 Signed Impressions: Service Date/Time: Tuesday, March 13, 2018 09:03 - CONCLUSION: Left suprahilar and minimal bibasilar areas of atelectasis or consolidation. Aly Cantu MD PHYSICAL EXAMINATION: GENERAL: Patient in no acute distress. Awake and alert. HEENT: Extraocular movements are grossly intact, pupils reactive to light. No icterus. No conjunctivae erythema. Oropharynx moist mucosa without lesions. NECK: Supple. No adenopathy. LUNGS: Decreased breath sounds. HEART: Regular S1 and S2. No murmurs. No rubs. No gallops. ABDOMEN: Obese. Bowel sounds present. Soft, nontender. EXTREMITIES: No clubbing or cyanosis. 1+ edema of the lower extremities at the dorsum of the feet and tibia. SKIN: No diffuse rash. No petechial lesions. NEUROLOGIC: No gross focal findings. PSYCHIATRIC: Calm and cooperative. IMPRESSION: Hemoptysis and dyspnea in a patient with lung infiltrates. Prior workup for infectious disease has been negative. Scattered densities with surrounding edema were noted on radiographic studies. Possible atypical pneumonia/pneumonitis. The patient also may have noninfectious cause of the lung infiltrates and hemoptysis. His white blood cell count is elevated, but this could also be associated with steroids being administered. The patient does not appear to be immunocompromised and therefore the infiltrates are less likely to be due to opportunistic bacteria but could be atypical pneumonia. MRSA positive nares testing. However I doubt this is related to this pulmonary Presentation. RECOMMENDATIONS: 1. Continue vancomycin. 2. Continue micafungin pending cultures. Follow aspergillus titers. 3. Continue azithromycin. 4. Monitor pathology on the biopsy specimen. 5. Monitor clinical status. 6. Monitor cultures of the lung biopsy specimen. Brian Birch MD March 17, 2018 11:47
--- NOTE | 2018-03-17 12:50 | HHI.PR ---
Subjective Remarks Had CT guided needle Biopsy of lesion and developed a pneumothorax. Still Mild hemoptysis. Has a chest tube on left. Chest X ray today shows no pneumo. Off O2 . C/O chest pains. Pathology pending Objective Vital Signs Date Time Temp Pulse Resp B/P (MAP) Pulse Ox O2 Delivery O2 Flow Rate FiO2 03/17/18 10:20 93 Nasal Cannula 4.00 03/17/18 08:21 18 03/17/18 07:00 83 03/17/18 04:05 96 Nasal Cannula 4.00 03/17/18 04:00 98.4 87 12 113/67 (82) 94 03/17/18 00:00 84 17 115/56 (75) 97 03/16/18 22:00 82 03/16/18 20:00 98.5 82 20 130/69 (89) 98 03/16/18 20:00 76 03/16/18 19:00 Room Air 98 03/16/18 18:57 98.9 85 19 106/53 (70) 97 03/16/18 17:37 94 21 03/16/18 17:30 89 14 96/65 (75) 95 Nasal Cannula 4 03/16/18 17:15 91 16 95/46 (62) 94 Nasal Cannula 4 03/16/18 17:00 101 17 89/43 (58) 90 Nasal Cannula 4 03/16/18 16:45 87 15 64/40 (48) 91 Nasal Cannula 4 03/16/18 16:45 87 64/40 03/16/18 16:30 94 20 94/52 (66) 94 Simple Mask 10 03/16/18 16:12 97.0 101 22 74/42 (53) 94 Non-Rebreather 15 I/O 03/16/18 03/16/18 03/16/18 03/17/18 03/17/18 03/17/18 06:59 14:59 22:59 06:59 14:59 22:59 Intake Total 480 ml 1000 ml Balance 480 ml 1000 ml Intake Oral 480 ml 1000 ml # Voids 2 7 # Bowel Movements 0 Result Diagram: 03/14/18199903/17/18 1305 Objective Remarks GENERAL: This is a very obese, middle-aged man who is alert. There is no peripheral edema. No lymphadenopathy. SKIN: Turgor was good. HEENT: Head is normocephalic. Pupils are reactive and equal. Throat was clear. Nasal mucosa clear. NECK: Supple, no bruits. No lymphadenopathy or thyromegaly. CHEST: Decreased excursions with occasional wheezes over both lung ascencio.No crackles . HEART: The heart sounds are regular S1 and S2. No murmur. No S3. ABDOMEN: Obese and protuberant without masses. No organomegaly or tenderness. Bowel sounds are active. EXTREMITIES: Decreased peripheral pulses. Reflexes are 1+ with no gross motor deficits. No edema. NEUROLOGIC: The patient is alert, oriented, and cooperative. SKIN: No lesions. Assessment and Plan Assessment and Plan IMPRESSION: 1. Bilateral nodular pulmonary infiltrates, etiology undetermined. 2. Probable underlying chronic obstructive pulmonary disease and interstitial lung disease. 3. History of kidney stones. 4. Obstructive sleep apnea syndrome. 5. Hypertension. Plan: 1. Will get Rpt Chest X ray 2. Continue antibiotics. 3. Nebs qid , Duoneb 4. O2 PRN 2 L 5. Transfer to tele 6. IS q3h. bedside 7. CBC,BMP in am. Brittany Richardson MD March 17, 2018 12:50
[2018-03-17 15:52] LABS: GLOMERULAR BASEMENT MEMBRAN AB <1.0 AI (<1.0)
[2018-03-17] MEDS: MICAFUNGIN INJ 100 MG in SODIUM CHLORIDE 0.9% INJ 100 ML IV SCH ×2 (16:52→16:57)
[2018-03-17] MEDS: AZITHROMYCIN INJ 500 MG in SODIUM CHLOR 0.9% 250 ML INJ 250 ML IV SCH ×2 (18:00→18:01)
[2018-03-17] MEDS: TERAZOSIN HCL 5 MG CAP PO SCH (21:00)
[2018-03-17] MEDS: INSULIN DETEMIR 100 UNITS/ML VIAL SQ SCH (22:41)
[2018-03-18] VITALS (7 sets, daily range): BP systolic 113–130; BP diastolic 55–69; PULSE 83–93; RESP 14–19; TEMP 97.8–98.9; O2SAT 91–96
[2018-03-18] MEDS: oxyCODONE/ACETAMINOPHEN 10 MG/325 MG TAB PO PRN ×4 (03:29→23:29)
[2018-03-18 06:10] LABS: HEMATOCRIT 33.4 % (39.0-51.0); HEMOGLOBIN 10.9 GM/DL (13.0-17.0); MEAN CELL VOLUME 89.5 FL (80.0-100.0); MEAN CORPUSCULAR HEMOGLOBIN 29.3 PG (27.0-34.0); MEAN CORPUSCULAR HGB CONC 32.7 % (32.0-36.0); MEAN PLATELET VOLUME 7.8 FL (7.0-11.0); PLATELET COUNT 197 TH/MM3 (150-450); RED BLOOD COUNT 3.73 MIL/MM3 (4.50-5.90); RED CELL DISTRIBUTION WIDTH 16.6 % (11.6-17.2)
[2018-03-18 06:33] LABS: BICARBONATE 32.9 MEQ/L (21.0-32.0); CALCIUM 8.5 MG/DL (8.5-10.1); CREATININE 1.13 MG/DL (0.60-1.30)
[2018-03-18 06:34] LABS: RANDOM VANCOMYCIN 7.8 COMMENT
[2018-03-18] MEDS: INSULIN ASPART SUPPLEMENTAL SCALE SQ SCH ×4 (08:00→21:17)
[2018-03-18] MEDS: SODIUM CHLORIDE 0.9% FLUSH 10 ML FLUSH IVF SCH (08:44)
[2018-03-18] MEDS: FUROSEMIDE 20 MG TAB PO SCH (08:45)
[2018-03-18] MEDS: LISINOPRIL 20 MG TAB PO SCH ×2 (08:45→21:18)
[2018-03-18] MEDS: ENOXAPARIN SODIUM 40 MG/0.4 ML SYRINGE SQ SCH (08:45)
[2018-03-18] MEDS: SODIUM CHLORIDE 0.9% FLUSH 10 ML FLUSH IV FLUSH SCH ×2 (08:46→21:15)
[2018-03-18] MEDS: CHLORTHALIDONE 50 MG TAB PO SCH (08:47)
[2018-03-18] MEDS: REMOVE OLD PATCH T-DERMAL SCH (08:48)
[2018-03-18] MEDS: NICOTINE 21 MG/24 HR PATCH T-DERMAL SCH (08:49)
--- NOTE | 2018-03-18 15:00 | HHI.PR ---
Subjective Remarks Patient is still coughing Denies fevers or chills breathing is improving Objective Vitals Vital Signs Date Time Temp Pulse Resp B/P (MAP) Pulse Ox O2 Delivery O2 Flow Rate FiO2 03/18/18 12:00 97.8 83 14 120/55 (76) 93 03/18/18 10:07 92 21 03/18/18 08:00 98.9 93 18 113/69 (84) 92 03/18/18 00:00 98.0 86 19 120/67 (84) 96 03/17/18 20:00 98.3 97 19 114/60 (78) 94 03/17/18 20:00 94 Room Air 03/17/18 18:34 92 Nasal Cannula 4.00 03/17/18 16:00 97.9 80 18 121/67 (85) 98 03/17/18 15:00 89 I/O 03/17/18 03/17/18 03/17/18 03/18/18 03/18/18 03/18/18 07:00 15:00 23:00 07:00 15:00 23:00 Intake Total 1000 ml 360 ml 240 ml Output Total 5 ml 900 ml Balance 1000 ml 355 ml -660 ml Intake Oral 1000 ml 360 ml 240 ml Output Urine Total 900 ml Chest Tube Drainage Total 5 ml # Voids 7 2 # Bowel Movements 0 Result Diagram: 03/18/18 0545 03/18/18 0545 Imaging Last Impressions Chest X-Ray 03/17/18 0000 Signed Impressions: Service Date/Time: Saturday, March 17, 2018 03:04 - CONCLUSION: Bilateral patchy pulmonary opacities. No pneumothorax. Savage Arora MD Lung Biopsy CT 03/16/18 0000 Signed Impressions: Service Date/Time: March 14:38 - CONCLUSION: Uncomplicated CT guided lung mass biopsy. Kimo Mccoy MD Chest Tube Insertion 03/16/18 0000 Signed Impressions: Service Date/Time: March 18:14 - CONCLUSION: Uncomplicated chest tube placement as above. Aly Sanchez MD Chest CT 03/15/18 0936 Signed Impressions: Service Date/Time: Thursday, March 15, 2018 15:23 - CONCLUSION: 1. Attempted CT-guided percutaneous biopsy of right upper lobe mass was unsuccessful due to the patient's inability to reproduce breath holds and significant diaphragmatic excursion, as above. Will discuss possibility of repeat biopsy attempt with anesthesiology under MAC sedation. Kimo Mccoy MD Objective Remarks AAOx3 hoarse voice Lungs with Diffuse BL expiratory wheezin. + rhonchi on left lung field. + left sided chest tube. Abdomen obese, soft, nt + 2 edema in BL lower extremities Urinary Catheter: No Vascular Central Line Catheter: No A/P Problem List: (1) Pulmonary nodules/lesions, multiple ICD Code: R91.8 - Other nonspecific abnormal finding of lung field Plan: Extensive multilobular reticulonodular scattered densities with surrounding edema on CT of chest with contrast at [facility]. These were thought to represent areas of pneumonia versus metastatic deposits ( preliminary right lung biopsy negative for malignancy) versus early abscesses. Pulmonology consulted, the patient is status post VATS biopsy and bronchoscopy with some aspiration specimen. Continue IV antibiotics as per infectious disease recommendations. The patient currently on vancomycin, micafungin, azithromycin. Continue duo nebs. Aspergillus antibodies, respiratory virus culture still pending. LISSETTE screen negative, anti-proteinase 3, antimyeloperoxidase negative. (2) COPD with exacerbation ICD Code: J44.1 - Chronic obstructive pulmonary disease with (acute) exacerbation Status: Acute Plan: Patient still with bilateral expiratory wheezing on exam. I will start the patient IV Solu-Medrol 40 mg IV every 8 hours. (3) Hemoptysis ICD Code: R04.2 - Hemoptysis Plan: Resolved. Continue to monitor. (4) HTN (hypertension) ICD Code: I10 - Essential (primary) hypertension Plan: Seems stable. Continue hydralazine as needed. Continue lisinopril. Monitor vital signs (5) BPH (benign prostatic hyperplasia) ICD Code: N40.0 - Benign prostatic hyperplasia without lower urinary tract symptoms Plan: Seems to be stable. Continue terazosin. (6) Edema ICD Code: R60.9 - Edema, unspecified Plan: Patient with bilateral extremity edema. Concerning for acute heart failure. Check 2D echocardiogram, increase Lasix dose to 40 mg p.o. twice daily. (7) Morbid obesity with BMI of 45.0-49.9, adult ICD Code: E66.01 - Morbid (severe) obesity due to excess calories; Z68.42 - Body mass index (BMI) 45.0-49.9, adult Plan: Advised weight loss and regular moderate exercise. (8) Sepsis ICD Code: A41.9 - Sepsis, unspecified organism Plan: Patient met sepsis criteria on presentation with leukocytosis and respiratory rate more than 20. Sepsis resolving with resolving leukocytosis and improved respiratory rate. Continue IV antibiotics as above. Blood cultures negative 1. Wound culture without growth in 48 hours. Mycobacterial culture pending, fungal smear negative, fungal culture still pending. (9) Tobacco abuse ICD Code: Z72.0 - Tobacco use Plan: Advised smoking cessation. On nicotine patch. Continue. Assessment and Plan DVT prophylaxis: Heparin subcutaneously. Discharge Planning Continue to monitor and the medical floor. Patient and his requested transfer back to [place]. Will transfer back to [place] once cleared to do so by pulmonology, infectious disease. Problem Qualifiers (1) HTN (hypertension): Qualified Codes: I10 - Essential (primary) hypertension (2) BPH (benign prostatic hyperplasia): Qualified Codes: N40.0 - Benign prostatic hyperplasia without lower urinary tract symptoms (3) Edema: Qualified Codes: R60.9 - Edema, unspecified (4) Sepsis: Qualified Codes: A41.9 - Sepsis, unspecified organism Declan Canela MD March 18, 2018 15:00
[2018-03-18] MEDS: methylPREDNISolone SOD SUCC 40 MG/1 ML VIAL IV PUSH SCH ×2 (15:19→21:18)
[2018-03-18] MEDS: AZITHROMYCIN INJ 500 MG in SODIUM CHLOR 0.9% 250 ML INJ 250 ML IV SCH (17:33)
[2018-03-18] MEDS: VANCOMYCIN INJ 1,750 MG in SODIUM CHLORID 0.9% 500 ML INJ 500 ML IV SCH (17:33)
[2018-03-18] MEDS: MICAFUNGIN INJ 100 MG in SODIUM CHLORIDE 0.9% INJ 100 ML IV SCH (17:33)
[2018-03-18] MEDS: FUROSEMIDE 40 MG TAB PO SCH (21:17)
[2018-03-18] MEDS: TERAZOSIN HCL 5 MG CAP PO SCH (21:18)
[2018-03-18] MEDS: INSULIN DETEMIR 100 UNITS/ML VIAL SQ SCH (21:18)
[2018-03-19] VITALS (7 sets, daily range): BP systolic 117–148; BP diastolic 58–79; PULSE 75–100; RESP 17–22; TEMP 97.1–98.7; O2SAT 91–96
[2018-03-19] MEDS: VANCOMYCIN INJ 1,750 MG in SODIUM CHLORID 0.9% 500 ML INJ 500 ML IV SCH ×2 (05:30→18:53)
[2018-03-19] MEDS: methylPREDNISolone SOD SUCC 40 MG/1 ML VIAL IV PUSH SCH ×3 (05:30→21:11)
[2018-03-19] MEDS: oxyCODONE/ACETAMINOPHEN 10 MG/325 MG TAB PO PRN ×4 (05:31→23:36)
[2018-03-19 06:31] LABS: CREATININE 1.26 MG/DL (0.60-1.30)
[2018-03-19 06:34] LABS: RANDOM VANCOMYCIN 15.6 COMMENT
[2018-03-19] MEDS: LISINOPRIL 20 MG TAB PO SCH ×2 (08:19→21:16)
[2018-03-19] MEDS: FUROSEMIDE 40 MG TAB PO SCH ×2 (08:19→21:18)
[2018-03-19] MEDS: CHLORTHALIDONE 50 MG TAB PO SCH (08:19)
[2018-03-19] MEDS: ENOXAPARIN SODIUM 40 MG/0.4 ML SYRINGE SQ SCH (08:19)
[2018-03-19] MEDS: REMOVE OLD PATCH T-DERMAL SCH (08:20)
[2018-03-19] MEDS: SODIUM CHLORIDE 0.9% FLUSH 10 ML FLUSH IVF SCH (08:20)
[2018-03-19] MEDS: NICOTINE 21 MG/24 HR PATCH T-DERMAL SCH (08:20)
[2018-03-19] MEDS: SODIUM CHLORIDE 0.9% FLUSH 10 ML FLUSH IV FLUSH SCH ×2 (08:20→21:13)
[2018-03-19] MEDS: INSULIN ASPART SUPPLEMENTAL SCALE SQ SCH ×4 (08:41→21:13)
--- NOTE | 2018-03-19 13:56 | HHI.PR ---
Subjective Remarks Denies cp/sob Afebrile stable vital signs Objective Vitals Vital Signs Date Time Temp Pulse Resp B/P (MAP) Pulse Ox O2 Delivery O2 Flow Rate FiO2 03/19/18 12:00 97.7 93 18 127/63 (84) 92 03/19/18 08:00 97.1 75 19 125/61 (82) 96 03/19/18 06:31 18 03/19/18 04:52 98.2 80 21 124/58 (80) 94 03/19/18 01:10 97.1 95 22 117/64 (81) 96 03/18/18 20:00 98.1 91 19 124/60 (81) 91 03/18/18 19:25 Room Air 03/18/18 17:37 93 21 03/18/18 16:00 98.7 87 19 130/64 (86) 93 I/O 03/18/18 03/18/18 03/18/18 03/19/18 03/19/18 03/19/18 07:00 15:00 23:00 07:00 15:00 23:00 Intake Total 240 ml 2 ml 1025 ml 680 ml Output Total 900 ml 550 ml 700 ml Balance -660 ml 2 ml 475 ml -20 ml Intake Oral 240 ml 1025 ml 680 ml IV Total 2 ml Output Urine Total 900 ml 550 ml 700 ml Chest Tube Drainage Total 0 ml # Voids 2 # Bowel Movements 0 Result Diagram: 03/18/18 0545 03/19/18 0540 Objective Remarks AAOx3 hoarse voice Lungs with Diffuse BL expiratory wheezin. + rhonchi on left lung field. + left sided chest tube. Abdomen obese, soft, nt + 2 edema in BL lower extremities A/P Problem List: (1) Pulmonary nodules/lesions, multiple ICD Code: R91.8 - Other nonspecific abnormal finding of lung field Plan: Extensive multilobular reticulonodular scattered densities with surrounding edema on CT of chest with contrast at [facility]. These were thought to represent areas of pneumonia versus metastatic deposits ( preliminary right lung biopsy negative for malignancy) versus early abscesses. Pulmonology consulted, the patient is status post VATS biopsy and bronchoscopy with some aspiration specimen. Continue IV antibiotics as per infectious disease recommendations. The patient currently on vancomycin, micafungin, azithromycin. Continue duo nebs. Aspergillus antibodies, respiratory virus culture still pending. LISSETTE screen negative, anti-proteinase 3, antimyeloperoxidase negative. (2) COPD with exacerbation ICD Code: J44.1 - Chronic obstructive pulmonary disease with (acute) exacerbation Status: Acute Plan: Patient still with bilateral expiratory wheezing on exam. Dc Solumedrol and start prednisone. (3) Hemoptysis ICD Code: R04.2 - Hemoptysis Plan: Resolved. Continue to monitor. (4) HTN (hypertension) ICD Code: I10 - Essential (primary) hypertension Plan: Seems stable. Continue hydralazine as needed. Continue lisinopril. Monitor vital signs (5) BPH (benign prostatic hyperplasia) ICD Code: N40.0 - Benign prostatic hyperplasia without lower urinary tract symptoms Plan: Seems to be stable. Continue terazosin. (6) Edema ICD Code: R60.9 - Edema, unspecified Plan: Patient with bilateral extremity edema. Concerning for acute heart failure. Check 2D echocardiogram, increase Lasix dose to 40 mg p.o. twice daily. (7) Morbid obesity with BMI of 45.0-49.9, adult ICD Code: E66.01 - Morbid (severe) obesity due to excess calories; Z68.42 - Body mass index (BMI) 45.0-49.9, adult Plan: Advised weight loss and regular moderate exercise. (8) Sepsis ICD Code: A41.9 - Sepsis, unspecified organism Plan: Patient met sepsis criteria on presentation with leukocytosis and respiratory rate more than 20. Sepsis resolving with resolving leukocytosis and improved respiratory rate. Continue IV antibiotics as above. Blood cultures negative 1. Wound culture without growth in 48 hours. Mycobacterial culture pending, fungal smear negative, fungal culture still pending. (9) Tobacco abuse ICD Code: Z72.0 - Tobacco use Plan: Advised smoking cessation. On nicotine patch. Continue. Assessment and Plan DVT prophylaxis: Heparin subcutaneously. Discharge Planning Continue to monitor and the medical floor. Patient and his requested transfer back to [place]. Will transfer back to [place] once cleared to do so by pulmonology, infectious disease. Problem Qualifiers (1) HTN (hypertension): Qualified Codes: I10 - Essential (primary) hypertension (2) BPH (benign prostatic hyperplasia): Qualified Codes: N40.0 - Benign prostatic hyperplasia without lower urinary tract symptoms (3) Edema: Qualified Codes: R60.9 - Edema, unspecified (4) Sepsis: Qualified Codes: A41.9 - Sepsis, unspecified organism Declan Canela MD March 19, 2018 13:56
[2018-03-19] MEDS: MICAFUNGIN INJ 100 MG in SODIUM CHLORIDE 0.9% INJ 100 ML IV SCH (16:21)
[2018-03-19] MEDS: AZITHROMYCIN INJ 500 MG in SODIUM CHLOR 0.9% 250 ML INJ 250 ML IV SCH (17:35)
--- NOTE | 2018-03-19 19:07 | HHI.IDPN ---
Note Infectious Disease Note Patient is awake and alert. He is upset about not having a diagnosis. Underwent CT-guided lung biopsy Pigtail chest tube catheter in the left chest has no drainage. He denies chest pain. States that he still has a problem coughing up blood. However he states that he only coughs of the blood when he is active such as taking a shower. He is not specific about characteristic of what he coughs up. He states that he has not taken a showing 3 days. He feels that congestion was mostly in his throat before now it feels like it is lower down in his chest. He is sitting up in a chair and is comfortable. No fever. The white blood cell count has decreased. He is receiving methylprednisolone. Pathology showed acute fibrinous and chronic organizing pneumonitis. Culture from biopsy specimen as no growth of bacteria. No fungal organisms seen. Acid-fast negative. Aspergillus titers. Viral culture is pending. The patient presented to [facility] with hemoptysis and shortness of breath on 02/27/2018. Cultures at [facility] were negative including sputum and blood cultures. Culture of the nares was positive for MRSA. PAST MEDICAL HISTORY: Chronic tobacco abuse, obstructive sleep apnea recently diagnosed, degenerative joint disease, morbid obesity, nephrolithiasis. PAST SURGICAL HISTORY: History of abdominal aortic aneurysm repair in 2016, history of left knee replacement approximately 20 years ago, history of left breast mass excision, tonsillectomy, septoplasty, lumbar spine surgery. ALLERGIES: ADHESIVES. MEDICATIONS: Current Medications Medications (Trade) Dose Ordered Sig/Nick Route PRN Reason Start Time Stop Time Status Last Admin Dose Admin Sodium Chloride (NS Flush) 2 ml UNSCH PRN IV FLUSH FLUSH AFTER USING IV ACCESS 03/09/18 23:30 03/18/18 15:19 Sodium Chloride (NS Flush) 2 ml BID IV FLUSH 03/10/18 09:00 03/18/18 08:46 Acetaminophen (Tylenol) 650 mg Q4H PRN PO TEMP > 100.4 03/09/18 23:30 Magnesium Hydroxide (Milk Of Magnvijay Liq) 30 ml Q12H PRN PO Mild constipation 03/09/18 23:30 Sennosides (Senokot) 17.2 mg Q12H PRN PO Moderate constipation 03/09/18 23:30 Bisacodyl (Dulcolax Supp) 10 mg DAILY PRN RECTAL SEVERE CONSITIPATION 03/09/18 23:30 Enoxaparin Sodium (Lovenox Inj) 40 mg DAILY SQ 03/10/18 09:00 03/19/18 08:19 Hydralazine HCl (Apresoline) 25 mg Q6HR PRN PO SBP>160, DBP>90 03/10/18 00:30 Insulin Detemir (Levemir Inj) 10 units HS SQ 03/10/18 00:30 03/18/18 21:18 Albuterol/ Ipratropium (Duoneb Neb) 1 ampule Q4HR NEB PRN NEB SOB/WHEEZING 03/10/18 00:45 Lisinopril (Prinivil) 20 mg BID PO 03/10/18 00:30 03/19/18 08:19 Terazosin HCl (Hytrin) 5 mg HS PO 03/10/18 00:30 03/18/18 21:18 Pharmacy Profile Note 0 ml @ 0 mls/hr UNSCH OTHER 03/10/18 00:30 Sodium Chloride (NS Flush) DAILY IVF 03/10/18 09:00 03/19/18 08:20 Heparin Sodium (Porcine) (Heparin Central Flush) DAILY IV FLUSH 03/10/18 09:00 03/19/18 08:19 Sodium Chloride (NS Flush) UNSCH PRN IVF SEE PROTOCOL 03/10/18 00:45 Heparin Sodium (Porcine) (Heparin Central Flush) UNSCH PRN IV FLUSH SEE PROTOCOL 03/10/18 00:45 03/11/18 21:32 Sodium Chloride (NS Flush) UNSCH PRN IVF SEE PROTOCOL 03/10/18 00:45 Nicotine (Habitrol 21 Mg Patch.24 Hr) 1 patch DAILY T-DERMAL 03/10/18 09:00 03/19/18 08:20 Miscellaneous Information 1 DAILY T-DERMAL 03/11/18 09:00 03/19/18 08:20 Chlorthalidone (Hygroton) 25 mg DAILY PO 03/10/18 09:00 03/19/18 08:19 Dextrose (D50w (Vial) Inj) 50 ml UNSCH PRN IV PUSH HYPOGLYCEMIA-SEE COMMENTS 03/10/18 00:45 Glucagon (Glucagon Inj) 1 mg UNSCH PRN OTHER HYPOGLYCEMIA-SEE COMMENTS 03/10/18 00:45 Insulin Aspart (NovoLOG SUPPLEMENTAL SCALE) 1 ACHS SLIDING SCALE SQ 03/10/18 08:00 03/19/18 12:00 Miscellaneous (Pill Splitter) 1 ea UNSCH PRN OTHER SEE LABEL COMMENTS 03/10/18 00:45 Oxycodone/ Acetaminophen (Percocet 10-325 Mg) 2 tab Q6H PRN PO PAIN SCALE 1 TO 10 03/10/18 06:30 03/19/18 17:35 Vancomycin HCl 1750 mg/Sodium Chloride 517.5 ml @ 257.5 mls/ hr Q12H IV 03/15/18 18:00 Future hold 03/19/18 05:30 Azithromycin 500 mg/Sodium Chloride 250 ml @ 250 mls/hr Q24H IV 03/15/18 17:00 03/19/18 17:35 Micafungin Sodium 100 mg/Sodium Chloride 100 ml @ 100 mls/hr Q24H IV 03/16/18 16:30 03/19/18 16:21 Norepinephrine Bitartrate 250 ml @ 7.5 mls/hr TITRATE PRN IV Maintain MAP > 65 mmHg 03/16/18 17:45 Furosemide (Lasix) 40 mg BID PO 03/18/18 21:00 03/19/18 08:19 Methylprednisolone Sodium Succinate (SoluMEDROL INJ) 40 mg Q8HR IV PUSH 03/18/18 14:45 03/19/18 16:21 Miscellaneous Information ([facility] Ordered Lab Info) SPECIFIC LAB TO BE DRAWN:VA... ONCE ONCE .XX 03/21/18 05:45 03/21/18 05:46 SOCIAL HISTORY: The patient is . Smokes 2 packs of cigarettes a day. Denies alcohol use. Denies illicit drug use. He works for a company making [employer]. He reports that he was able to do his usual work activity prior to feeling sick with onset of shortness of breath 2 weeks before he presented to [facility] on 02/27/2018. Objective: Vital Signs Date Time Temp Pulse Resp B/P (MAP) Pulse Ox O2 Delivery O2 Flow Rate FiO2 03/19/18 16:00 98.0 98 17 145/63 (90) 95 03/19/18 12:00 97.7 93 18 127/63 (84) 92 03/19/18 08:00 97.1 75 19 125/61 (82) 96 03/19/18 06:31 18 03/19/18 04:52 98.2 80 21 124/58 (80) 94 03/19/18 01:10 97.1 95 22 117/64 (81) 96 03/18/18 20:00 98.1 91 19 124/60 (81) 91 03/18/18 19:25 Room Air Laboratory Tests Test 03/18/18 05:45 White Blood Count 12.0 TH/MM3 Red Blood Count 3.73 MIL/MM3 Hemoglobin 10.9 GM/DL Hematocrit 33.4 % Mean Corpuscular Volume 89.5 FL Mean Corpuscular Hemoglobin 29.3 PG Mean Corpuscular Hemoglobin Concent 32.7 % Red Cell Distribution Width 16.6 % Platelet Count 197 TH/MM3 Mean Platelet Volume 7.8 FL Laboratory Tests Test 03/18/18 05:45 03/19/18 05:40 Blood Urea Nitrogen 35 MG/DL Creatinine 1.13 MG/DL 1.26 MG/DL Random Glucose 99 MG/DL Calcium Level 8.5 MG/DL Sodium Level 140 MEQ/L Potassium Level 4.5 MEQ/L Chloride Level 101 MEQ/L Carbon Dioxide Level 32.9 MEQ/L Anion Gap 6 MEQ/L Estimat Glomerular Filtration Rate 66 ML/MIN 59 ML/MIN Imaging: Chest X-Ray 03/17/18 0000 Signed Impressions: Service Date/Time: Saturday, March 17, 2018 03:04 - CONCLUSION: Bilateral patchy pulmonary opacities. No pneumothorax. Savage Arora MD Chest X-Ray 03/16/18 1730 Signed Impressions: Service Date/Time: March 15:35 - CONCLUSION: Left apical pneumothorax. A follow up film will again be obtained in an hour Aly Sanchez MD Chest X-Ray 03/15/18 1800 Signed Impressions: Service Date/Time: Thursday, March 15, 2018 18:03 - CONCLUSION: 1. No pneumothorax seen. 2. Bilateral patchy areas of consolidation seen throughout both lungs. Aly Cantu MD Chest CT 03/15/18 0936 Signed Impressions: Service Date/Time: Thursday, March 15, 2018 15:23 - CONCLUSION: 1. Attempted CT-guided percutaneous biopsy of right upper lobe mass was unsuccessful due to the patient's inability to reproduce breath holds and significant diaphragmatic excursion, as above. Will discuss possibility of repeat biopsy attempt with anesthesiology under MAC sedation. Kimo Mccoy MD Chest X-Ray 03/13/18 0000 Signed Impressions: Service Date/Time: Tuesday, March 13, 2018 09:03 - CONCLUSION: Left suprahilar and minimal bibasilar areas of atelectasis or consolidation. Aly Cantu MD PHYSICAL EXAMINATION: GENERAL: No acute distress. HEENT: Extraocular movements are grossly intact, pupils reactive to light. No icterus. No conjunctivae erythema. Oropharynx moist mucosa without lesions. NECK: Supple. No adenopathy. LUNGS: Slight rales at the bases. HEART: Regular S1 and S2. No murmurs. No rubs. No gallops. ABDOMEN: Obese. Bowel sounds present. Soft, nontender. EXTREMITIES: No clubbing or cyanosis. 1+ edema of the lower extremities at the dorsum of the feet and tibia. SKIN: No diffuse rash. No petechial lesions. NEUROLOGIC: No gross focal findings. PSYCHIATRIC: Calm and cooperative. IMPRESSION: Hemoptysis and dyspnea in a patient with lung infiltrates. Lung biopsy specimen indicates chronic organizing pneumonitis. Prior workup for infectious disease has been negative. Scattered densities with surrounding edema were noted on radiographic studies. Possible atypical pneumonia/pneumonitis. The patient also may have noninfectious cause of the lung infiltrates and hemoptysis. His white blood cell count is elevated, but this could also be associated with steroids being administered. The patient does not appear to be immunocompromised and therefore the infiltrates are less likely to be due to opportunistic bacteria. MRSA positive nares testing. However I doubt this is related to this pulmonary Presentation. RECOMMENDATIONS: 1. Stop vancomycin. 2. Stop micafungin. Follow aspergillus titers. 3. Stop azithromycin. 4. Follow viral titers on the lung biopsy specimen 5. Monitor clinical status. 6. Ambulatory pulse oximetry to see if he desaturates with exercise. Okay for the patient to transfer back to [facility] from ID standpoint. Brian Birch MD March 19, 2018 19:07
[2018-03-19] MEDS: TERAZOSIN HCL 5 MG CAP PO SCH (21:15)
[2018-03-19] MEDS: INSULIN DETEMIR 100 UNITS/ML VIAL SQ SCH (21:19)
[2018-03-20] VITALS (7 sets, daily range): BP systolic 119–155; BP diastolic 58–80; PULSE 79–97; RESP 17–20; TEMP 97.5–98.7; O2SAT 92–94
[2018-03-20] MEDS: oxyCODONE/ACETAMINOPHEN 10 MG/325 MG TAB PO PRN ×4 (05:32→23:26)
[2018-03-20] MEDS: methylPREDNISolone SOD SUCC 40 MG/1 ML VIAL IV PUSH SCH (05:37)
[2018-03-20] MEDS: VANCOMYCIN INJ 1,750 MG in SODIUM CHLORID 0.9% 500 ML INJ 500 ML IV SCH (05:49)
[2018-03-20 05:59] LABS: AUTOMATED NEUTROPHIL # 20.9 TH/MM3 (1.8-7.7); BASOPHIL % 0.2 % (0.0-2.0); EOSINOPHIL % 0.2 % (0.0-4.0); HEMATOCRIT 33.9 % (39.0-51.0); LYMPH % 6.2 % (9.0-44.0); LYMPHOCYTE # 1.4 TH/MM3 (1.0-4.8); MEAN CELL VOLUME 89.6 FL (80.0-100.0); MEAN CORPUSCULAR HEMOGLOBIN 29.1 PG (27.0-34.0); MEAN CORPUSCULAR HGB CONC 32.4 % (32.0-36.0); MEAN PLATELET VOLUME 7.9 FL (7.0-11.0); MONO % 2.7 % (0.0-8.0); MONOCYTE # 0.6 TH/MM3 (0-0.9); NEUT % 90.7 % (16.0-70.0); PLATELET COUNT 210 TH/MM3 (150-450); RED BLOOD COUNT 3.78 MIL/MM3 (4.50-5.90); RED CELL DISTRIBUTION WIDTH 16.7 % (11.6-17.2)
[2018-03-20 06:34] LABS: ALBUMIN 3.3 GM/DL (3.4-5.0); AST (GOT) 15 U/L (15-37); BICARBONATE 29.3 MEQ/L (21.0-32.0); BLOOD UREA NITROGEN 31 MG/DL (7-18); CALCIUM 9.2 MG/DL (8.5-10.1); CHLORIDE 99 MEQ/L (98-107); GLOMERULAR FILTRATION RATE 57 ML/MIN (>89); GLUCOSE,RANDOM 165 MG/DL (74-106); MAGNESIUM 2.1 MG/DL (1.5-2.5); SODIUM (NA) 137 MEQ/L (136-145)
[2018-03-20 06:35] LABS: ALT (GPT) 43 U/L (12-78); PHOSPHORUS 4.1 MG/DL (2.5-4.9)
[2018-03-20 06:37] LABS: ALKALINE PHOSPHATASE 75 U/L (45-117); TOTAL BILIRUBIN ADULT 0.3 MG/DL (0.2-1.0); TOTAL PROTEIN 7.2 GM/DL (6.4-8.2)
[2018-03-20] MEDS: INSULIN ASPART SUPPLEMENTAL SCALE SQ SCH ×4 (08:00→20:35)
[2018-03-20] MEDS: REMOVE OLD PATCH T-DERMAL SCH (09:00)
[2018-03-20] MEDS: FUROSEMIDE 40 MG TAB PO SCH (09:10)
[2018-03-20] MEDS: CHLORTHALIDONE 50 MG TAB PO SCH (09:11)
[2018-03-20] MEDS: LISINOPRIL 20 MG TAB PO SCH ×2 (09:11→20:19)
[2018-03-20] MEDS: NICOTINE 21 MG/24 HR PATCH T-DERMAL SCH (09:12)
[2018-03-20] MEDS: ENOXAPARIN SODIUM 40 MG/0.4 ML SYRINGE SQ SCH (09:12)
[2018-03-20] MEDS: predniSONE 20 MG TAB PO SCH (09:20)
[2018-03-20] MEDS: SODIUM CHLORIDE 0.9% FLUSH 10 ML FLUSH IVF SCH (09:22)
[2018-03-20] MEDS: SODIUM CHLORIDE 0.9% FLUSH 10 ML FLUSH IV FLUSH SCH ×2 (09:22→20:27)
--- NOTE | 2018-03-20 09:41 | RADRPT ---
EXAM DATE/TIME: 03/20/2018 09:08 [facility] COMPARISON: CT NEEDLE BIOPSY LUNG, LEFT, March 16, 2018, 14:38. CHEST EXPIRATION ONLY, March 17, 2018, 3:04. INDICATIONS : Evaluate pneumothorax. MEDICAL HISTORY : None. SURGICAL HISTORY : Discectomy, lumbar. ENCOUNTER: Subsequent ACUITY: 1 week PAIN SCORE: 8/10 LOCATION: Lumbar spine. FINDINGS: There is a small bore chest tube in place on the left. There is no residual pneumothorax. The patient 's left lung mass is again evident. Note is made of patchy areas of infiltrate seen within both lungs bilaterally. The visualized bony structures are grossly intact. CONCLUSION: Left-sided chest tube in satisfactory position. No residual pneumothorax. Continued bilateral infiltr ates and known left-sided lung mass. Harpreet Julio MD on March 20, 2018 at 9:37 Board Certified Radiologist. This report was verified electronically.
[2018-03-20] MEDS ORDERED: PRED20 PO (13:51)
--- NOTE | 2018-03-20 13:55 | HHI.DCPOC ---
Discharge Care Plan Diagnosis: (1) Pulmonary nodules/lesions, multiple (2) Hemoptysis (3) Edema (4) Tobacco abuse (5) Sepsis (6) HTN (hypertension) (7) BPH (benign prostatic hyperplasia) (8) COPD with exacerbation (9) Morbid obesity with BMI of 45.0-49.9, adult Goals to Promote Your Health * To prevent worsening of your condition and complications * To maintain your health at the optimal level Directions to Meet Your Goals Take your medications as prescribed Follow your dietary instruction Follow activity as directed Keep your appointments as scheduled Take your immunizations and boosters as scheduled If your symptoms worsen call your PCP, if no PCP go to Urgent Care Center or Emergency Room Smoking is Dangerous to Your Health. Avoid second hand smoke Call the 24-hour hour crisis hotline for domestic abuse at Declan Canela MD March 20, 2018 13:55
--- NOTE | 2018-03-20 13:57 | HHI.DS ---
Discharge Summary Admission Date March 10, 2018 at 13:39 Discharge Date: March 20, 2018 Admitting Diagnosis Bilateral scattered pulmonary nodular densities of uncertain etiology . (1) Pulmonary nodules/lesions, multiple ICD Code: R91.8 - Other nonspecific abnormal finding of lung field Diagnosis: Principal Status: Acute (2) COPD with exacerbation ICD Code: J44.1 - Chronic obstructive pulmonary disease with (acute) exacerbation Diagnosis: Principal Status: Resolved (3) Hemoptysis ICD Code: R04.2 - Hemoptysis Diagnosis: Principal Status: Resolved (4) HTN (hypertension) ICD Code: I10 - Essential (primary) hypertension Diagnosis: Secondary Status: Chronic (5) BPH (benign prostatic hyperplasia) ICD Code: N40.0 - Benign prostatic hyperplasia without lower urinary tract symptoms Diagnosis: Secondary Status: Chronic (6) Edema ICD Code: R60.9 - Edema, unspecified Diagnosis: Principal Status: Acute (7) Morbid obesity with BMI of 45.0-49.9, adult ICD Code: E66.01 - Morbid (severe) obesity due to excess calories; Z68.42 - Body mass index (BMI) 45.0-49.9, adult Diagnosis: Principal Status: Chronic (8) Sepsis ICD Code: A41.9 - Sepsis, unspecified organism Diagnosis: Principal Status: Resolved (9) Tobacco abuse ICD Code: Z72.0 - Tobacco use Diagnosis: Principal Status: Chronic Procedures CT-guided lung biopsy. Brief History - From Admission The patient was admitted to [facility] in [place] after a 2 week period of cough with hemoptysis after being referred by his primary care physician following an abnormal office chest x-ray. The patient presented to the emergency room on 03/01/2018. He was found to have extensive multilobular nodular scattered densities with surrounding edema on CT of chest with contrast. These were thought to represent areas of pneumonia versus metastatic deposits versus early abscesses. He had an extensive workup including Gram stain and cultures, upper respiratory bacterial and viral panel by PCR, Streptococcus pneumonia, and Legionella pneumonia urine antigen, mycoplasma pneumonia and others with no remarkable testing outcomes (per Dr. Sweet consult note dated 03/06 - I could not find the results included with records sent with patient). He had a nostril culture for MRSA that did come back positive. The patient was deemed to be high risk for bronchoscopy due to his significant morbid obesity with a BMI of 50 and he declined intubation if required. He was accepted in transfer by Dr. Nunes at [facility] for possible open lung biopsy. The patient reports two weeks of hemoptysis with sob with exertion that started two weeks before he presented to [facility] on 03/01. He denies any improvement in symptoms despite the treatments he received at [facility]. He expresses great frustration with his lack of improvement. He reports severe 05/16 chronic back pain that will only be relieved with Percocet 10/325 mg x 2 tabs (takes this at home and at [facility]). CBC/BMP: 03/20/18 0550 03/20/18 0550 Significant Findings Laboratory Tests Test 03/18/18 05:45 03/19/18 05:40 03/20/18 05:50 White Blood Count 12.0 TH/MM3 (4.0-11.0) 23.0 TH/MM3 (4.0-11.0) Red Blood Count 3.73 MIL/MM3 (4.50-5.90) 3.78 MIL/MM3 (4.50-5.90) Hemoglobin 10.9 GM/DL (13.0-17.0) 11.0 GM/DL (13.0-17.0) Hematocrit 33.4 % (39.0-51.0) 33.9 % (39.0-51.0) Blood Urea Nitrogen 35 MG/DL (7-18) 31 MG/DL (7-18) Carbon Dioxide Level 32.9 MEQ/L (21.0-32.0) Estimat Glomerular Filtration Rate 66 ML/MIN (>89) 59 ML/MIN (>89) 57 ML/MIN (>89) Neutrophils (%) (Auto) 90.7 % (16.0-70.0) Lymphocytes (%) (Auto) 6.2 % (9.0-44.0) Neutrophils # (Auto) 20.9 TH/MM3 (1.8-7.7) Random Glucose 165 MG/DL (74-106) Albumin 3.3 GM/DL (3.4-5.0) Imaging Last Impressions Chest X-Ray 03/20/18 0900 Signed Impressions: Service Date/Time: Tuesday, March 20, 2018 09:08 - CONCLUSION: Left-sided chest tube in satisfactory position. No residual pneumothorax. Continued bilateral infiltrates and known left-sided lung mass. Harpreet Julio MD Lung Biopsy CT 03/16/18 0000 Signed Impressions: Service Date/Time: March 14:38 - CONCLUSION: Uncomplicated CT guided lung mass biopsy. Kimo Mccoy MD Chest Tube Insertion 03/16/18 0000 Signed Impressions: Service Date/Time: March 18:14 - CONCLUSION: Uncomplicated chest tube placement as above. Aly Sanchez MD Chest CT 03/15/18 0936 Signed Impressions: Service Date/Time: Thursday, March 15, 2018 15:23 - CONCLUSION: 1. Attempted CT-guided percutaneous biopsy of right upper lobe mass was unsuccessful due to the patient's inability to reproduce breath holds and significant diaphragmatic excursion, as above. Will discuss possibility of repeat biopsy attempt with anesthesiology under MAC sedation. Kimo Mccoy MD PE at Discharge AAOx3 hoarse voice Lungs with Diffuse BL expiratory wheezin. + rhonchi on left lung field. + left sided chest tube. Abdomen obese, soft, nt + 2 edema in BL lower extremities Pt update on day of discharge The patient denies chest pain or shortness of breath. The patient is a febrile and has acceptable oxygen saturation in the low to mid 90s on room air. All antibiotics have been discontinued by infectious disease who recommended to monitor. Hospital Course The patient was admitted to the medical floor, monitor on telemetry. CT of the chest showed extensive multilobular reticulonodular scattered densities with surrounding edema on CT of the chest with contrast that was performed at [facility]. Please thought to be areas of pneumonia versus metastatic disease. Preliminary right lung biopsy negative for malignancy. Pulmonology was consulted. Initially it was planned for the patient to have a Conley's biopsy and bronchoscopy with biopsy however these surgical procedure was canceled and the patient underwent CT-guided biopsy. Pathology of the lung biopsy revealed acute fibrinous and chronic organizing pneumonitis exhibited and recent hemorrhage and hemosiderin deposits indicative of past hemorrhage and atypical alveolar lining cell hyperplasia negative for neoplasia. Blood cultures were negative 5 days, wound culture did not show any growth, negative acid fast stain and negative fungal smear. Fungal and mycobacterial culture pending at the time of discharge. This will need to be followed up by admitting team over at [facility]. The patient also was found to have significant diffuse bilateral expiratory wheezing on exam. The patient was started on IV Solu-Medrol which was tapered down to prednisone after the patient's condition improved. The patient will be discharged on a prednisone taper. Hemoptysis resolved. The patient has history of chronic hypertension and the patient was placed on hydralazine as needed and the patient's home lisinopril was continued. Prazosin was continued for BPH. Patient also was found to meet sepsis criteria on presentation to the hospital with leukocytosis and respiratory rate more than 20. Sepsis resolved prior to discharge. The patient was treated with IV antibiotics. ID consulted. Wound culture negative as above. All antibiotics including IV vancomycin, IV azithromycin, and IV micafungin were discontinued prior to discharge by our infectious disease specialist, Dr. Birch. Smoking cessation was strongly encouraged and the patient and counseled extensively. The patient was placed on a nicotine patch for smoking cessation. The patient was placed on heparin subcutaneously for DVT prophylaxis after hemoptysis had resolved. Patient requested transfer back to [facility]. Discussed the case with pulmonology, infectious disease and cardiothoracic surgery. As per pulmonology instructions the patient will go back with CT of the chest and will need follow-up with pulmonology upon arrival to that institution. Pt Condition on Discharge: Stable Discharge Disposition: Disch to Another Hospital Discharge Time: > 30 minutes Discharge Instructions DIET: Follow Instructions for: As Tolerated, No Restrictions Activities you can perform: Regular-No Restrictions Activities to Avoid: Lifting/Bending, Strenuous Activity Follow up Referrals: Pulmonology New Medications: Prednisone (Prednisone) 20 Mg Tab 20 MG PO DAILY for Shortness of Breath, #3 TAB Continued Medications: Chlorthalidone (Chlorthalidone) 25 Mg Tab 25 MG PO DAILY, TAB 0 Refills Enoxaparin Inj (Enoxaparin Inj) 40 Mg/0.4 Ml Syr 40 MG SQ DAILY for Blood Clot Prevention, SYRINGE 0 Refills Heparin Sodium (Porcine) Lock Flush (Heparin Lock Flush For Flush) 500 Unit/5 Ml (100 Unit/Ml) Inj 5 ML IV for Line Flush, INJECTION 0 Refills Hydralazine HCl (Hydralazine HCl) 25 Mg Tablet 25 MG PO Q6HR PRN for SBP>160, DBP>90, #60 TAB 0 Refills Insulin Detemir Inj (Levemir Inj) 1,000 unit/ 10 ML Vial 10 UNITS SQ HS for Blood Sugar Management, VIAL 0 Refills Do not mix with any other Insulin. Insulin Lispro (Humalog) 100 Unit/Ml Cartridge SQ ACHS SLIDING SCALE Ipratropium-Albuterol Neb (Duoneb) 0.5-2.5 Mg/3 Ml Neb 1 NEBULE INH Q4HR PRN for WHEEZING, #30 NEBULE 0 Refills Lisinopril (Lisinopril) 20 Mg Tab 20 MG PO BID, #30 TAB 0 Refills Nicotine (Nicotine Transdermal Syst) 21 Mg/24 Hour Dis TD DAILY Oxycodone-Acetaminophen (Percocet) 10-325 mg Tab 1 TAB PO Q6H PRN for PAIN, TAB 0 Refills Terazosin (Terazosin) 5 Mg Cap 5 MG PO HS, #30 CAP 0 Refills Discontinued Medications: Furosemide (Lasix) 20 Mg Tab 20 MG PO DAILY, #30 TAB 0 Refills Levofloxacin in D5w (Levofloxacin in 5% Dextro 750 mg/150Ml) 750 Mg/150 Ml Inj IV DAILY Methylprednisolone Sod Succinate Inj (Solu-Medrol Inj) 40 Mg/Ml Inj 40 MG IV PUSH Q8HR, #1 VIAL 0 Refills Oxycodone-Acetaminophen (Percocet) 10-325 mg Tab 2 TAB PO Q6H PRN for PAIN, TAB 0 Refills Vancomycin in Dextrose Inj (Vancomycin in Dextrose Inj) 1 Gm/200 Ml Inj 1000 MG IV Q8HR for Infection, BAG 0 Refills Declan Canela MD March 20, 2018 13:57
--- NOTE | 2018-03-20 17:54 | HHI.PR ---
Subjective Remarks Had CT guided needle Biopsy of lesion and developed a pneumothorax. Still has Mild hemoptysis. Has a chest tube on left. Chest X ray today shows no pneumothorax. Off O2 . C/O chest pains. Pathology shows Fibrinous pneumonia. No AFB or Fungus and Cytology negative for malignancy. Objective Vital Signs Date Time Temp Pulse Resp B/P (MAP) Pulse Ox O2 Delivery O2 Flow Rate FiO2 03/20/18 12:15 90 130/58 (82) 03/20/18 12:15 18 03/20/18 12:00 97.5 97 18 94 03/20/18 11:50 92 03/20/18 11:45 2.00 03/20/18 08:00 97.8 84 17 155/80 (105) 92 03/20/18 00:00 98.7 96 19 151/72 (98) 92 03/19/18 21:00 92 Room Air 03/19/18 20:45 95 21 03/19/18 20:00 98.7 100 19 148/79 (102) 91 I/O 03/19/18 03/19/18 03/19/18 03/20/18 03/20/18 03/20/18 07:00 15:00 23:00 07:00 15:00 23:00 Intake Total 680 ml 1200 ml 240 ml Output Total 700 ml 500 ml Balance -20 ml 1200 ml -260 ml Intake Oral 680 ml 1200 ml 240 ml Output Urine Total 700 ml 500 ml Chest Tube Drainage Total 0 ml # Voids 4 # Bowel Movements 0 1 Result Diagram: 03/20/18 0550 03/20/18 0550 Objective Remarks GENERAL: This is a very obese, middle-aged man who is alert. There is no peripheral edema. No lymphadenopathy. SKIN: Turgor was good. HEENT: Head is normocephalic. Pupils are reactive and equal. Throat was clear. Nasal mucosa clear. NECK: Supple, no bruits. No lymphadenopathy or thyromegaly. CHEST: Decreased excursions with occasional wheezes over both lung ascencio. HEART: The heart sounds are regular S1 and S2. No murmur. No S3. ABDOMEN: Obese and protuberant without masses. No organomegaly or tenderness. Bowel sounds are active. EXTREMITIES: Decreased peripheral pulses. Reflexes are 1+ with no gross motor deficits. No edema. NEUROLOGIC: The patient is alert, oriented, and cooperative. SKIN: No lesions. Assessment and Plan Assessment and Plan IMPRESSION: 1. Bilateral nodular pulmonary infiltrates, etiology undetermined. 2. Probable underlying chronic obstructive pulmonary disease and interstitial lung disease. 3. History of kidney stones. 4. Obstructive sleep apnea syndrome. 5. Hypertension. Plan: 1. Will need to D/C Chest tube. 2. D/C antibiotics. 3. Nebs qid , Duoneb PRN 4. O2 PRN 2 L 5. Transfer to [facility] 6. Sleep study as OP. 7. Will need Repeat CT Chest in 3 weeks. 8. Await Final AFB and Fungal cultures. 9. Patient will F/U with pulmonary at [facility] Brittany Richardson MD March 20, 2018 17:54
[2018-03-20 19:54] LABS: ASPERGILLUS FLAVUS AB NEGATIVE (NEGATIVE); ASPERGILLUS FUMIGATUS AB NEGATIVE (NEGATIVE); ASPERGILLUS NIGER AB NEGATIVE (NEGATIVE)
[2018-03-20] MEDS: TERAZOSIN HCL 5 MG CAP PO SCH (20:18)
[2018-03-20] MEDS: INSULIN DETEMIR 100 UNITS/ML VIAL SQ SCH (20:27)
[2018-03-21] VITALS: BP 117/56; PULSE 82; RESP 20; TEMP 97.2; O2SAT 94
[2018-03-21] MEDS: oxyCODONE/ACETAMINOPHEN 10 MG/325 MG TAB PO PRN ×3 (04:38→15:14)
[2018-03-21] MEDS ORDERED: PHARMACY ORDERED LAB ONE (05:45)
[2018-03-21 08:00] VITALS: BP 113/59; PULSE 80; RESP 18; TEMP 97.7; O2SAT 96
[2018-03-21] MEDS: INSULIN ASPART SUPPLEMENTAL SCALE SQ SCH ×2 (08:00→13:19)
[2018-03-21] MEDS: REMOVE OLD PATCH T-DERMAL SCH (09:00)
[2018-03-21] MEDS: SODIUM CHLORIDE 0.9% FLUSH 10 ML FLUSH IV FLUSH SCH (09:00)
[2018-03-21] MEDS ORDERED: FUROSEMIDE 40 MG TAB PO SCH (09:00)
[2018-03-21] MEDS: predniSONE 20 MG TAB PO SCH (09:11)
[2018-03-21] MEDS: CHLORTHALIDONE 50 MG TAB PO SCH (09:12)
[2018-03-21] MEDS: LISINOPRIL 20 MG TAB PO SCH (09:12)
[2018-03-21] MEDS: NICOTINE 21 MG/24 HR PATCH T-DERMAL SCH (09:13)
[2018-03-21] MEDS: ENOXAPARIN SODIUM 40 MG/0.4 ML SYRINGE SQ SCH (09:13)
[2018-03-21] MEDS: SODIUM CHLORIDE 0.9% FLUSH 10 ML FLUSH IVF SCH (09:14)
[2018-03-21 12:00] VITALS: BP 123/58; PULSE 95; RESP 19; TEMP 97.8; O2SAT 95
--- NOTE | 2018-03-21 13:01 | RADRPT ---
EXAM DATE/TIME: 03/21/2018 12:27 [facility] COMPARISON: CHEST SINGLE AP, March 20, 2018, 9:08. INDICATIONS : Post left side chest tube removal. MEDICAL HISTORY : Chronic obstructive pulmonary disease. Hypertension. Renal calculi. SURGICAL HISTORY : None. ENCOUNTER: Subsequent ACUITY: 1 day PAIN SCORE: 0/10 LOCATION: Left chest FINDINGS: The left-sided chest tube has been removed. Lung remains well-expanded without evidence of pneumothor ax. Bilateral airspace disease and known left lung mass again noted. CONCLUSION: No evidence of pneumothorax following left chest tube removal. Ayush Vale MD on March 21, 2018 at 12:58 Board Certified Radiologist. This report was verified electronically.
--- NOTE | 2018-03-21 13:09 | HHI.PR ---
Subjective Remarks patient seen on 03/20 however patient did not leave Patient states has mild hemoptysis Denies cp/sob Objective Vitals Vital Signs Date Time Temp Pulse Resp B/P (MAP) Pulse Ox O2 Delivery O2 Flow Rate FiO2 03/21/18 12:00 97.8 95 19 123/58 (79) 95 03/21/18 08:00 96 Room Air 03/21/18 08:00 97.7 80 18 113/59 (77) 96 03/21/18 00:00 97.2 82 20 117/56 (76) 94 03/20/18 20:17 21 03/20/18 20:00 97.9 79 20 119/62 (81) 93 03/20/18 18:33 18 03/20/18 16:00 97.8 80 17 120/58 (78) 94 I/O 03/20/18 03/20/18 03/20/18 03/21/18 03/21/18 03/21/18 07:00 15:00 23:00 07:00 15:00 23:00 Intake Total 240 ml 1920 ml 360 ml Output Total 500 ml 0 ml 0 ml 0 ml Balance -260 ml 0 ml 1920 ml 360 ml Intake Oral 240 ml 1920 ml 360 ml Output Urine Total 500 ml Chest Tube Drainage Total 0 ml 0 ml 0 ml # Voids 8 4 # Bowel Movements 1 0 0 Result Diagram: 03/20/18 0550 03/20/18 0550 Objective Remarks AAOx3 hoarse voice Lungs Clear BL. No wheezing or rhonchi. + left sided chest tube. Abdomen obese, soft, nt + 2 edema in BL lower extremities Procedures CT-guided lung biopsy. A/P Problem List: (1) Pulmonary nodules/lesions, multiple ICD Code: R91.8 - Other nonspecific abnormal finding of lung field Status: Acute Plan: Extensive multilobular reticulonodular scattered densities with surrounding edema on CT of chest with contrast at [facility]. These were thought to represent areas of pneumonia versus metastatic deposits ( preliminary right lung biopsy negative for malignancy) versus early abscesses. Pulmonology consulted, the patient is status post VATS biopsy and bronchoscopy with some aspiration specimen. Placed on broad-spectrum IV antibiotics and ID consulted. Diuretics managed by ID. The patient currently on vancomycin, micafungin, azithromycin. Continue duo nebs. Aspergillus antibodies, respiratory virus culture still pending. LISSETTE screen negative, anti-proteinase 3, antimyeloperoxidase negative. 03/20 antibiotics discontinued as per ID recommendations. Follow-up final fungal and mycobacterial culture. Pathology from lung biopsy reports acute fibrinous and chronic organizing pneumonitis exhibiting recent hemorrhage and hemosiderin deposition indicative of past hemorrhage and atypical alveolar lining cell hyperplasia negative for neoplasia. (2) COPD with exacerbation ICD Code: J44.1 - Chronic obstructive pulmonary disease with (acute) exacerbation Status: Resolved Plan: Continue prednisone. Will discharge on a taper. (3) Hemoptysis ICD Code: R04.2 - Hemoptysis Status: Resolved Plan: Mild hemoptysis. Will continue to monitor. Patient with good oxygen saturation. (4) HTN (hypertension) ICD Code: I10 - Essential (primary) hypertension Status: Chronic Plan: Seems stable. Continue hydralazine as needed. Continue lisinopril. Monitor vital signs (5) BPH (benign prostatic hyperplasia) ICD Code: N40.0 - Benign prostatic hyperplasia without lower urinary tract symptoms Status: Chronic Plan: Seems to be stable. Continue terazosin. (6) Edema ICD Code: R60.9 - Edema, unspecified Status: Acute Plan: Patient with bilateral extremity edema. Concerning for acute heart failure. Check 2D echocardiogram, increase Lasix dose to 40 mg p.o. twice daily. (7) Morbid obesity with BMI of 45.0-49.9, adult ICD Code: E66.01 - Morbid (severe) obesity due to excess calories; Z68.42 - Body mass index (BMI) 45.0-49.9, adult Status: Chronic Plan: Advised weight loss and regular moderate exercise. (8) Sepsis ICD Code: A41.9 - Sepsis, unspecified organism Status: Resolved (9) Tobacco abuse ICD Code: Z72.0 - Tobacco use Status: Chronic Plan: Advised smoking cessation. On nicotine patch. Continue. Assessment and Plan DVT prophylaxis: Heparin subcutaneously. Discharge Planning Continue to monitor and the medical floor. Patient and his requested transfer back to [place]. Will transfer back to [place] once cleared to do so by pulmonology, infectious disease. Problem Qualifiers (1) HTN (hypertension): Qualified Codes: I10 - Essential (primary) hypertension (2) BPH (benign prostatic hyperplasia): Qualified Codes: N40.0 - Benign prostatic hyperplasia without lower urinary tract symptoms (3) Edema: Qualified Codes: R60.9 - Edema, unspecified (4) Sepsis: Qualified Codes: A41.9 - Sepsis, unspecified organism Declan Canela MD March 21, 2018 13:09
[2018-03-21] MEDS ORDERED: FURO1TAB60 PO (13:14)
[2018-03-21] MEDS ORDERED: PRED10PA PO (13:17)
--- NOTE | 2018-03-22 12:50 | RADRPT ---
EXAM DATE/TIME: 03/21/2018 17:48 [place] COMPARISON: No previous studies available for comparison. INDICATIONS : chest tube removal post pneumothorax DEVICE(S): 1.) Vaseline occlusive dressing PROCEDURE : Chest tube removal. Using aseptic technique the previously placed chest tube was easily removed in one piece and Vaseline gauze and sterile dressing was applied. Chest radiograph is to be obtained. CONCLUSION: Uncomplicated chest tube removal. Dandy Marte MD on March 22, 2018 at 12:47 Board Certified Radiologist. This report was verified electronically.
== END 2018-03-21 15:52 | disposition home or self-care (01) | DRG 853 ==
LOC: N04A 20:52 → OBSVTOIN 03-10 13:39 → N03B 03-16 17:36 → N03A 03-16 18:33 → N07A 03-17 15:57
PROVIDERS: ADMIT Hospitalist; ATTEND Hospitalist
PROC: 0B9L30Z Drainage of Left Lung with Drainage Device, Percutaneous Approach (ICD-10-PCS; principal; 2018-03-16)
PROC: 0BBL3ZX Excision of Left Lung, Percutaneous Approach, Diagnostic (ICD-10-PCS; 2018-03-16)
DX: A41.9 Sepsis, unspecified organism (principal); J18.9 Pneumonia, unspecified organism; E11.65 Type 2 diabetes mellitus with hyperglycemia; J44.0 Chronic obstructive pulmonary disease with (acute) lower respiratory infection; J84.10 Pulmonary fibrosis, unspecified; R04.2 Hemoptysis; Z68.43 Body mass index [BMI] 50.0-59.9, adult; J44.1 Chronic obstructive pulmonary disease with (acute) exacerbation; J95.811 Postprocedural pneumothorax; E66.01 Morbid (severe) obesity due to excess calories; G89.29 Other chronic pain; M54.9 Dorsalgia, unspecified; N40.0 Benign prostatic hyperplasia without lower urinary tract symptoms; G47.33 Obstructive sleep apnea (adult) (pediatric); F17.210 Nicotine dependence, cigarettes, uncomplicated; I10 Essential (primary) hypertension; T38.0X5A Adverse effect of glucocorticoids and synthetic analogues, initial encounter; R60.0 Localized edema; M17.0 Bilateral primary osteoarthritis of knee; Z53.09 Procedure and treatment not carried out because of other contraindication; Z96.652 Presence of left artificial knee joint; Y84.8 Other medical procedures as the cause of abnormal reaction of the patient, or of later complication, without mention of misadventure at the time of the procedure; M25.569 Pain in unspecified knee; Z79.4 Long term (current) use of insulin
CPT/HCPCS: 32405; 32551; 36600; 71045; 71250; 77012; 80048; 80053; 80202; 81001; 82247; 82565; 82805; 82948; 83520; 83605; 83735; 84100; 85007; 85025; 85027; 85610; 85652; 85730; 86021; 86038; 86606; 86850; 86900; 86901; 87015; 87040; 87070; 87102; 87116; 87176; 87205; 87206; 87252; 87641; 88305; 88312; 88333; 93005; 94150; 94618; 94640; 94664; 99211; C1729; C1769; G0463; J0456; J0690; J1170; J1642; J1644; J1650; J1815; J1956; J2248; J2250; J2270; J2370; J2920; J3010; J3370; J7040; J7050; J7512